=== PATIENT | female | born 1950 | race African-American/Black ===

== ENCOUNTER 2018-06-25 14:03 | Inpatient (IN) | payer OTHER, MEDICARE ==
[2018-06-25] VITALS (7 sets, daily range): BP systolic 85–98
[~2018-06-25] VITALS: Ht 167.6 cm; Wt 100.7 kg
[~2018-06-25 14:03] MED LIST: AMLO5TAB4 PO; ASPI-1153 PO; DIF100 PO; HYDR12.55 PO; LIP10 PO; LOSA100T3 PO; TOPXL100 PO
[2018-06-25] MEDS ORDERED: NACL 0.9% 1,000 ML IV ONE ×2 (14:40→18:30)
[2018-06-25] MEDS ORDERED: ONDANSETRON HCL 4 MG/2 ML VIAL IVP ONE (14:45)
[2018-06-25] MEDS ORDERED: INSULIN REGULAR, HUMAN 10 UNITS/0.1 ML INJ IVP ONE ×2 (15:00→18:00)
[2018-06-25] MEDS ORDERED: NACL 0.9% 2,000 ML IV ONE ×2 (15:00→16:30)
[2018-06-25 15:12] LABS: BASOPHILS % (AUTO) 0.1 % (0.0-2.0); EOSINOPHILS % (AUTO) 0.1 % (0.0-4.0); HEMATOCRIT 34.7 % (36-48); HEMOGLOBIN 10.7 g/dL (12.0-16.0); LYMPHOCYTES # (AUTO) 1.3 K/uL (1.0-5.5); MEAN CORPUSCULAR HEMOGLOBIN 26 pg (27-31); MEAN CORPUSCULAR HGB CONC 31 % (32-36); MEAN CORPUSCULAR VOLUME 84 fL (79.0-98.0); MONOCYTES # (AUTO) 0.8 K/uL (0.0-1.0); MONOCYTES % (AUTO) 4.6 % (1.7-9.3); NEUTROPHILS # (AUTO) 15.8 K/uL (1.8-7.7); NEUTROPHILS % (AUTO) 88.2 % (40.0-70.0); PLATELET COUNT (AUTO) 337 K/uL (130-430); RED BLOOD CELL COUNT(AUTO) 4.11 MIL/uL (4.2-6.2); RED CELL DISTRIBUTION WIDTH 13.8 % (9.0-15.0); WHITE BLOOD COUNT (AUTO) 17.9 K/uL (4.8-10.8)
[2018-06-25 15:25] LABS: PROTHROMBIN TIME 10.1 SECS (9.5-12.5)
[2018-06-25 15:26] LABS: CALCIUM 8.8 mg/dL (8.4-11.0); CREATININE 2.52 mg/dL (0.55-1.30); POTASSIUM 5.3 mmol/L (3.5-5.1)
[2018-06-25 15:29] LABS: ALBUMIN 3.1 g/dL (3.4-4.8); TOTAL BILIRUBIN 0.7 mg/dL (0.0-1.0)
[2018-06-25] MEDS ORDERED: DULO60CA41 PO (16:47)
[2018-06-25] MEDS ORDERED: ALBU8.5H8 INH (16:47)
[2018-06-25] MEDS ORDERED: ASPI-1153 PO (16:47)
[2018-06-25] MEDS ORDERED: OMEP20CA10 PO (16:47)
[2018-06-25] MEDS ORDERED: NAPR-1172 PO (16:47)
[2018-06-25] MEDS ORDERED: INSU100V SQ (16:47)
[2018-06-25] MEDS ORDERED: METF1000 PO (16:47)
[2018-06-25] MEDS ORDERED: PRAM0.253 PO (16:47)
[2018-06-25] MEDS ORDERED: cefTRIAXone 1 GM IVPB PREMIX 50 ML IV ONE (18:00)
[2018-06-25] MEDS ORDERED: INSULIN REGULAR, HUMAN 100 UNITS in NS 99 ML IV PRN ×4 (20:45→22:15)
[2018-06-25] MEDS ORDERED: DEXTROSE 50% JECT 50 ML DISP.SYRIN IVP PRN (20:45)
[2018-06-25] MEDS ORDERED: LevALBUTEROL HCL 1.25 MG/0.5 ML *CONC.* VIAL.NEB (XOPENEX CONC.) INH PRN ×2 (22:15)
[2018-06-25 23:02] LABS: CALCIUM 7.3 mg/dL (8.4-11.0); CREATININE 2.76 mg/dL (0.55-1.30); POTASSIUM 4.4 mmol/L (3.5-5.1)
[2018-06-25] MEDS: NACL 0.9% 1,000 ML IV SCH (23:38)
[2018-06-25] MEDS ORDERED: AZITHROMYCIN 500 MG/VIAL (ZITHROMAX) IV ONE (23:56)
[2018-06-26] VITALS (25 sets, daily range): BP systolic 81–139
[2018-06-26] MEDS ORDERED: NOREPINEPHRINE BITARTRATE 4 MG in NS 246 ML IV PRN ×2
[2018-06-26] MEDS: AZITHROMYCIN 500 MG in NS 250 ML IV SCH ×2 (00:01→22:54)
[2018-06-26] MEDS: LevALBUTEROL HCL 1.25 MG/0.5 ML *CONC.* VIAL.NEB (XOPENEX CONC.) INH SCH ×4 (00:52→19:47)
[2018-06-26 02:52] LABS: CALCIUM 7.6 mg/dL (8.4-11.0); CREATININE 2.78 mg/dL (0.55-1.30); POTASSIUM 4.3 mmol/L (3.5-5.1)
[2018-06-26 04:40] LABS: BILIRUBIN,URINE 2+ (NEGATIVE); BLOOD, URINE NEGATIVE (NEGATIVE); CLARITY/URINE CLEAR (CLEAR); COLOR,URINE YELLOW (YELLOW); GLUCOSE,URINE 3+ (NEGATIVE); KETONES,URINE 1+ (NEGATIVE); LEUKOCYTE ESTERASE ,URINE NEGATIVE (NEGATIVE); NITRITE, URINE NEGATIVE (NEGATIVE); PROTEIN URINE NEGATIVE (NEGATIVE); UROBILINOGEN,URINE 0.2 (0.2-1.0)
[2018-06-26] MEDS: NACL 0.9% 1,000 ML IV SCH (05:14)
[2018-06-26 05:25] LABS: BACTERIA,URINE FEW /HPF (None Seen); RBC,URINE 0-3 /HPF (0-3); WBC,URINE 0-3 /HPF (0-3)
[2018-06-26] MEDS: OMEPRAZOLE 20 MG CAPSULE.DR (PriLOSEC) PO SCH (06:14)
[2018-06-26 06:45] LABS: BASOPHILS % (AUTO) 0.1 % (0.0-2.0); EOSINOPHILS % (AUTO) 0.1 % (0.0-4.0); HEMATOCRIT 29.3 % (36-48); HEMOGLOBIN 9.4 g/dL (12.0-16.0); LYMPHOCYTES # (AUTO) 1.5 K/uL (1.0-5.5); LYMPHOCYTES % (AUTO) 8.4 % (20.5-51.5); MEAN CORPUSCULAR HEMOGLOBIN 27 pg (27-31); MEAN CORPUSCULAR HGB CONC 32 % (32-36); MEAN CORPUSCULAR VOLUME 82 fL (79.0-98.0); MONOCYTES # (AUTO) 1.3 K/uL (0.0-1.0); MONOCYTES % (AUTO) 7.3 % (1.7-9.3); NEUTROPHILS # (AUTO) 15.1 K/uL (1.8-7.7); NEUTROPHILS % (AUTO) 84.1 % (40.0-70.0); PLATELET COUNT (AUTO) 278 K/uL (130-430); RED BLOOD CELL COUNT(AUTO) 3.57 MIL/uL (4.2-6.2); RED CELL DISTRIBUTION WIDTH 13.4 % (9.0-15.0); WHITE BLOOD COUNT (AUTO) 17.9 K/uL (4.8-10.8)
[2018-06-26 07:05] LABS: CALCIUM 7.4 mg/dL (8.4-11.0); CREATININE 2.77 mg/dL (0.55-1.30); PHOSPHORUS 3.5 mg/dL (2.7-4.5); POTASSIUM 3.9 mmol/L (3.5-5.1)
[2018-06-26] MEDS: OSELTAMIVIR PHOSPHATE 75 MG CAPSULE PO SCH ×2 (09:00→21:01)
[2018-06-26] MEDS: DULoxetine HCL 30 MG CAPSULE.DR (CYMBALTA) PO SCH (09:00)
[2018-06-26] MEDS: ASPIRIN 81 MG TABLET(ECOTRIN) PO SCH (09:00)
[2018-06-26] MEDS: ENOXAPARIN SODIUM 30 MG/0.3 ML SYRINGE SUBCUT SCH (09:01)
[2018-06-26] MEDS ORDERED: INSULIN REGULAR, HUMAN 100 UNITS in NS 99 ML IV PRN ×2 (10:00)
[2018-06-26 10:26] LABS: CALCIUM 7.9 mg/dL (8.4-11.0); CREATININE 2.54 mg/dL (0.55-1.30); POTASSIUM 3.9 mmol/L (3.5-5.1)
[2018-06-26] MEDS: KCL 20 mEq in NS 1000 mL 1,000 ML IV SCH ×3 (10:39→22:53)
[2018-06-26] MEDS: ACETAMINOPHEN 325 MG TABLET PO PRN (14:12)
[2018-06-26] MEDS: INSULIN REGULAR, HUMAN 100 UNITS/ML, 10 ML VIAL (novoLIN R) SUBCUT PRN ×2 (17:26→21:15)
[2018-06-26] MEDS: cefTRIAXone 1 GM in D5W 50 ML IV SCH (18:48)
[2018-06-26] MEDS: PRAMIPEXOLE DI-HCL 0.25 MG TABLET PO SCH (21:01)
[2018-06-26] MEDS ORDERED: INSULIN REGULAR, HUMAN 100 UNITS/ML, 10 ML VIAL SUBCUT ONE (22:45)
[2018-06-27] VITALS (17 sets, daily range): BP systolic 101–169
[2018-06-27] MEDS: LevALBUTEROL HCL 1.25 MG/0.5 ML *CONC.* VIAL.NEB (XOPENEX CONC.) INH SCH ×4 (00:59→19:50)
[2018-06-27] MEDS: OMEPRAZOLE 20 MG CAPSULE.DR (PriLOSEC) PO SCH (06:15)
[2018-06-27 07:02] LABS: CALCIUM 8.2 mg/dL (8.4-11.0); CREATININE 1.92 mg/dL (0.55-1.30); POTASSIUM 3.9 mmol/L (3.5-5.1)
[2018-06-27 07:12] LABS: BASOPHILS % (AUTO) 0.3 % (0.0-2.0); EOSINOPHILS % (AUTO) 0.1 % (0.0-4.0); HEMATOCRIT 30.6 % (36-48); HEMOGLOBIN 9.9 g/dL (12.0-16.0); LYMPHOCYTES % (AUTO) 21.3 % (20.5-51.5); MEAN CORPUSCULAR HEMOGLOBIN 26 pg (27-31); MEAN CORPUSCULAR HGB CONC 32 % (32-36); MEAN CORPUSCULAR VOLUME 82 fL (79.0-98.0); MONOCYTES # (AUTO) 0.9 K/uL (0.0-1.0); MONOCYTES % (AUTO) 6.2 % (1.7-9.3); NEUTROPHILS # (AUTO) 10.3 K/uL (1.8-7.7); NEUTROPHILS % (AUTO) 72.1 % (40.0-70.0); PLATELET COUNT (AUTO) 274 K/uL (130-430); RED BLOOD CELL COUNT(AUTO) 3.74 MIL/uL (4.2-6.2); RED CELL DISTRIBUTION WIDTH 14.2 % (9.0-15.0); WHITE BLOOD COUNT (AUTO) 14.2 K/uL (4.8-10.8)
[2018-06-27] MEDS: DULoxetine HCL 30 MG CAPSULE.DR (CYMBALTA) PO SCH (09:28)
[2018-06-27] MEDS: ASPIRIN 81 MG TABLET(ECOTRIN) PO SCH (09:28)
[2018-06-27] MEDS: ENOXAPARIN SODIUM 30 MG/0.3 ML SYRINGE SUBCUT SCH (09:29)
[2018-06-27] MEDS: KCL 20 mEq in NS 1000 mL 1,000 ML IV SCH ×4 (09:29→23:18)
[2018-06-27] MEDS: OSELTAMIVIR PHOSPHATE 75 MG CAPSULE PO SCH ×2 (11:45→20:26)
[2018-06-27] MEDS: INSULIN REGULAR, HUMAN 100 UNITS/ML, 10 ML VIAL (novoLIN R) SUBCUT PRN ×3 (11:52→20:40)
[2018-06-27] MEDS: ACETAMINOPHEN 325 MG TABLET PO PRN (12:10)
[2018-06-27] MEDS: PRAMIPEXOLE DI-HCL 0.25 MG TABLET PO SCH (20:26)
[2018-06-27] MEDS: CARVEDILOL 6.25 MG TABLET (COREG) PO SCH (20:26)
[2018-06-27] MEDS: cefTRIAXone 1 GM in D5W 50 ML IV SCH (20:26)
[2018-06-27] MEDS: AZITHROMYCIN 500 MG in NS 250 ML IV SCH (23:18)
[2018-06-28] VITALS: BP_SYST 129
[2018-06-28] MEDS: LevALBUTEROL HCL 1.25 MG/0.5 ML *CONC.* VIAL.NEB (XOPENEX CONC.) INH SCH ×4 (01:24→20:22)
[2018-06-28] MEDS: ACETAMINOPHEN 325 MG TABLET PO PRN (03:36)
[2018-06-28] MEDS: KCL 20 mEq in NS 1000 mL 1,000 ML IV SCH ×3 (06:06→20:00)
[2018-06-28] MEDS: OMEPRAZOLE 20 MG CAPSULE.DR (PriLOSEC) PO SCH (06:06)
[2018-06-28] MEDS: INSULIN REGULAR, HUMAN 100 UNITS/ML, 10 ML VIAL (novoLIN R) SUBCUT PRN ×4 (06:10→20:10)
[2018-06-28 06:51] LABS: BASOPHILS % (AUTO) 0.4 % (0.0-2.0); EOSINOPHILS % (AUTO) 0.2 % (0.0-4.0); HEMATOCRIT 30.9 % (36-48); LYMPHOCYTES # (AUTO) 1.3 K/uL (1.0-5.5); LYMPHOCYTES % (AUTO) 19.3 % (20.5-51.5); MEAN CORPUSCULAR HEMOGLOBIN 27 pg (27-31); MEAN CORPUSCULAR HGB CONC 32 % (32-36); MEAN CORPUSCULAR VOLUME 82 fL (79.0-98.0); MONOCYTES # (AUTO) 0.7 K/uL (0.0-1.0); MONOCYTES % (AUTO) 9.7 % (1.7-9.3); NEUTROPHILS # (AUTO) 4.9 K/uL (1.8-7.7); NEUTROPHILS % (AUTO) 70.4 % (40.0-70.0); PLATELET COUNT (AUTO) 243 K/uL (130-430); RED BLOOD CELL COUNT(AUTO) 3.76 MIL/uL (4.2-6.2); RED CELL DISTRIBUTION WIDTH 14.1 % (9.0-15.0); WHITE BLOOD COUNT (AUTO) 6.9 K/uL (4.8-10.8)
[2018-06-28 06:56] LABS: CALCIUM 8.5 mg/dL (8.4-11.0); CREATININE 1.09 mg/dL (0.55-1.30); POTASSIUM 4.1 mmol/L (3.5-5.1)
[2018-06-28 09:00] VITALS: BP_SYST 164
[2018-06-28] MEDS: OSELTAMIVIR PHOSPHATE 75 MG CAPSULE PO SCH ×2 (09:03→19:59)
[2018-06-28] MEDS: ASPIRIN 81 MG TABLET(ECOTRIN) PO SCH (09:04)
[2018-06-28] MEDS: CARVEDILOL 6.25 MG TABLET (COREG) PO SCH ×2 (09:04→19:59)
[2018-06-28] MEDS: DULoxetine HCL 30 MG CAPSULE.DR (CYMBALTA) PO SCH (09:04)
[2018-06-28] MEDS: ENOXAPARIN SODIUM 30 MG/0.3 ML SYRINGE SUBCUT SCH (09:06)
[2018-06-28 13:07] VITALS: BP_SYST 161
[2018-06-28 17:18] VITALS: BP_SYST 172
[2018-06-28 18:01] VITALS: BP_SYST 155
[2018-06-28] MEDS: cefTRIAXone 1 GM in D5W 50 ML IV SCH (18:35)
[2018-06-28] MEDS: PRAMIPEXOLE DI-HCL 0.25 MG TABLET PO SCH (19:59)
[2018-06-28 20:00] VITALS: BP_SYST 135
[2018-06-28] MEDS: AZITHROMYCIN 500 MG in NS 250 ML IV SCH (23:05)
[2018-06-29] VITALS: BP_SYST 136
[2018-06-29] MEDS: LevALBUTEROL HCL 1.25 MG/0.5 ML *CONC.* VIAL.NEB (XOPENEX CONC.) INH SCH ×4 (02:12→19:00)
[2018-06-29] MEDS: KCL 20 mEq in NS 1000 mL 1,000 ML IV SCH ×4 (03:16→23:45)
[2018-06-29] MEDS: OMEPRAZOLE 20 MG CAPSULE.DR (PriLOSEC) PO SCH (06:15)
[2018-06-29] MEDS: INSULIN REGULAR, HUMAN 100 UNITS/ML, 10 ML VIAL (novoLIN R) SUBCUT PRN ×3 (06:32→20:40)
[2018-06-29] MEDS: ENOXAPARIN SODIUM 30 MG/0.3 ML SYRINGE SUBCUT SCH (08:13)
[2018-06-29] MEDS: OSELTAMIVIR PHOSPHATE 75 MG CAPSULE PO SCH ×2 (08:18→20:41)
[2018-06-29] MEDS: CARVEDILOL 6.25 MG TABLET (COREG) PO SCH (08:19)
[2018-06-29] MEDS: ASPIRIN 81 MG TABLET(ECOTRIN) PO SCH (08:19)
[2018-06-29] MEDS: DULoxetine HCL 30 MG CAPSULE.DR (CYMBALTA) PO SCH (08:19)
[2018-06-29 12:29] VITALS: BP_SYST 156
[2018-06-29 16:30] VITALS: BP_SYST 174
[2018-06-29] MEDS: cefTRIAXone 1 GM in D5W 50 ML IV SCH (17:53)
[2018-06-29] MEDS: PRAMIPEXOLE DI-HCL 0.25 MG TABLET PO SCH (20:22)
[2018-06-29] MEDS: CARVEDILOL 12.5 MG TABLET (COREG) PO SCH (20:22)
[2018-06-29] MEDS: VALSARTAN 160 MG TABLET (DIOVAN) PO SCH (20:23)
[2018-06-29] MEDS: AZITHROMYCIN 500 MG in NS 250 ML IV SCH (23:38)
[2018-06-30 00:36] VITALS: BP_SYST 146
[2018-06-30] MEDS: LevALBUTEROL HCL 1.25 MG/0.5 ML *CONC.* VIAL.NEB (XOPENEX CONC.) INH SCH ×4 (01:43→19:50)
[2018-06-30] MEDS: KCL 20 mEq in NS 1000 mL 1,000 ML IV SCH ×3 (06:28→23:04)
[2018-06-30] MEDS: OMEPRAZOLE 20 MG CAPSULE.DR (PriLOSEC) PO SCH (06:28)
[2018-06-30] MEDS: INSULIN REGULAR, HUMAN 100 UNITS/ML, 10 ML VIAL (novoLIN R) SUBCUT PRN ×4 (06:44→20:30)
[2018-06-30 08:00] VITALS: BP_SYST 169
[2018-06-30] MEDS: OSELTAMIVIR PHOSPHATE 75 MG CAPSULE PO SCH ×2 (08:14→20:23)
[2018-06-30] MEDS: VALSARTAN 160 MG TABLET (DIOVAN) PO SCH ×2 (08:15→20:23)
[2018-06-30] MEDS: ASPIRIN 81 MG TABLET(ECOTRIN) PO SCH (08:15)
[2018-06-30] MEDS: DULoxetine HCL 30 MG CAPSULE.DR (CYMBALTA) PO SCH (08:16)
[2018-06-30] MEDS: CARVEDILOL 12.5 MG TABLET (COREG) PO SCH ×2 (08:16→20:23)
[2018-06-30] MEDS: ENOXAPARIN SODIUM 30 MG/0.3 ML SYRINGE SUBCUT SCH (08:23)
[2018-06-30 12:02] VITALS: BP_SYST 138
[2018-06-30 16:02] VITALS: BP_SYST 133
[2018-06-30] MEDS: cefTRIAXone 1 GM in D5W 50 ML IV SCH (18:22)
[2018-06-30 20:00] VITALS: BP_SYST 161
[2018-06-30] MEDS: PRAMIPEXOLE DI-HCL 0.25 MG TABLET PO SCH (20:24)
[2018-07-01] MEDS: LevALBUTEROL HCL 1.25 MG/0.5 ML *CONC.* VIAL.NEB (XOPENEX CONC.) INH SCH ×4 (01:40→19:00)
[2018-07-01 01:47] VITALS: BP_SYST 177
[2018-07-01] MEDS: OMEPRAZOLE 20 MG CAPSULE.DR (PriLOSEC) PO SCH (05:59)
[2018-07-01] MEDS: INSULIN REGULAR, HUMAN 100 UNITS/ML, 10 ML VIAL (novoLIN R) SUBCUT PRN ×4 (06:02→20:20)
[2018-07-01 07:26] VITALS: BP_SYST 177
[2018-07-01 08:07] VITALS: BP_SYST 186
[2018-07-01] MEDS: DULoxetine HCL 30 MG CAPSULE.DR (CYMBALTA) PO SCH (08:09)
[2018-07-01] MEDS: CARVEDILOL 12.5 MG TABLET (COREG) PO SCH (08:09)
[2018-07-01] MEDS: OSELTAMIVIR PHOSPHATE 75 MG CAPSULE PO SCH ×2 (08:09→20:10)
[2018-07-01] MEDS: ASPIRIN 81 MG TABLET(ECOTRIN) PO SCH (08:09)
[2018-07-01] MEDS: VALSARTAN 160 MG TABLET (DIOVAN) PO SCH ×2 (08:10→20:11)
[2018-07-01] MEDS: ENOXAPARIN SODIUM 30 MG/0.3 ML SYRINGE SUBCUT SCH (08:10)
[2018-07-01 11:35] VITALS: BP_SYST 165
[2018-07-01] MEDS ORDERED: CARVEDILOL 12.5 MG TABLET (COREG) PO ONE (13:30)
[2018-07-01] MEDS: KCL 20 mEq in NS 1000 mL 1,000 ML IV SCH (13:56)
[2018-07-01 16:50] VITALS: BP_SYST 142
[2018-07-01] MEDS: cefTRIAXone 1 GM in D5W 50 ML IV SCH (18:15)
[2018-07-01 20:00] VITALS: BP_SYST 155
[2018-07-01] MEDS: PRAMIPEXOLE DI-HCL 0.25 MG TABLET PO SCH (20:09)
[2018-07-01] MEDS: CARVEDILOL 25 MG TABLET (COREG) PO SCH (20:10)
[2018-07-02] MEDS: LevALBUTEROL HCL 1.25 MG/0.5 ML *CONC.* VIAL.NEB (XOPENEX CONC.) INH SCH ×4 (01:31→19:56)
[2018-07-02 01:42] VITALS: BP_SYST 152
[2018-07-02] MEDS: KCL 20 mEq in NS 1000 mL 1,000 ML IV SCH ×2 (04:45→16:58)
[2018-07-02] MEDS: OMEPRAZOLE 20 MG CAPSULE.DR (PriLOSEC) PO SCH (06:35)
[2018-07-02] MEDS: INSULIN REGULAR, HUMAN 100 UNITS/ML, 10 ML VIAL (novoLIN R) SUBCUT PRN ×4 (06:38→21:38)
[2018-07-02 08:00] VITALS: BP_SYST 181
[2018-07-02] MEDS: VALSARTAN 160 MG TABLET (DIOVAN) PO SCH ×2 (08:35→20:32)
[2018-07-02] MEDS: DULoxetine HCL 30 MG CAPSULE.DR (CYMBALTA) PO SCH (08:35)
[2018-07-02] MEDS: CARVEDILOL 25 MG TABLET (COREG) PO SCH ×2 (08:36→20:32)
[2018-07-02] MEDS: OSELTAMIVIR PHOSPHATE 75 MG CAPSULE PO SCH ×2 (08:36→20:31)
[2018-07-02] MEDS: ASPIRIN 81 MG TABLET(ECOTRIN) PO SCH (08:36)
[2018-07-02] MEDS: ENOXAPARIN SODIUM 30 MG/0.3 ML SYRINGE SUBCUT SCH (08:38)
[2018-07-02 12:24] VITALS: BP_SYST 139
[2018-07-02] MEDS ORDERED: FLUCONAZOLE 200 MG TABLET (DIFLUCAN) PO ONE (15:00)
[2018-07-02 16:30] VITALS: BP_SYST 149
[2018-07-02] MEDS: cefTRIAXone 1 GM in D5W 50 ML IV SCH (18:25)
[2018-07-02 20:00] VITALS: BP_SYST 134
[2018-07-02] MEDS: PRAMIPEXOLE DI-HCL 0.25 MG TABLET PO SCH (20:32)
[2018-07-03] MEDS: LevALBUTEROL HCL 1.25 MG/0.5 ML *CONC.* VIAL.NEB (XOPENEX CONC.) INH SCH ×4 (01:25→19:47)
[2018-07-03 05:00] VITALS: BP_SYST 160
[2018-07-03 05:37] LABS: BASOPHILS % (AUTO) 0.3 % (0.0-2.0); EOSINOPHILS % (AUTO) 0.2 % (0.0-4.0); HEMATOCRIT 29.9 % (36-48); HEMOGLOBIN 9.5 g/dL (12.0-16.0); LYMPHOCYTES # (AUTO) 0.9 K/uL (1.0-5.5); LYMPHOCYTES % (AUTO) 12.3 % (20.5-51.5); MEAN CORPUSCULAR HEMOGLOBIN 27 pg (27-31); MEAN CORPUSCULAR HGB CONC 32 % (32-36); MEAN CORPUSCULAR VOLUME 83 fL (79.0-98.0); MONOCYTES # (AUTO) 0.5 K/uL (0.0-1.0); MONOCYTES % (AUTO) 6.1 % (1.7-9.3); NEUTROPHILS # (AUTO) 6.1 K/uL (1.8-7.7); NEUTROPHILS % (AUTO) 81.1 % (40.0-70.0); PLATELET COUNT (AUTO) 283 K/uL (130-430); RED CELL DISTRIBUTION WIDTH 14.7 % (9.0-15.0); WHITE BLOOD COUNT (AUTO) 7.5 K/uL (4.8-10.8)
[2018-07-03] MEDS: OMEPRAZOLE 20 MG CAPSULE.DR (PriLOSEC) PO SCH (06:29)
[2018-07-03] MEDS: INSULIN REGULAR, HUMAN 100 UNITS/ML, 10 ML VIAL (novoLIN R) SUBCUT PRN ×3 (06:30→16:55)
[2018-07-03 06:47] LABS: CREATININE 0.98 mg/dL (0.55-1.30); POTASSIUM 4.4 mmol/L (3.5-5.1)
[2018-07-03 07:54] VITALS: BP_SYST 174
[2018-07-03] MEDS: KCL 20 mEq in NS 1000 mL 1,000 ML IV SCH (08:32)
[2018-07-03] MEDS: OSELTAMIVIR PHOSPHATE 75 MG CAPSULE PO SCH (08:33)
[2018-07-03] MEDS: ASPIRIN 81 MG TABLET(ECOTRIN) PO SCH (08:33)
[2018-07-03] MEDS: VALSARTAN 160 MG TABLET (DIOVAN) PO SCH (08:34)
[2018-07-03] MEDS: CARVEDILOL 25 MG TABLET (COREG) PO SCH (08:34)
[2018-07-03] MEDS: DULoxetine HCL 30 MG CAPSULE.DR (CYMBALTA) PO SCH (08:34)
[2018-07-03] MEDS: ENOXAPARIN SODIUM 30 MG/0.3 ML SYRINGE SUBCUT SCH (08:39)
[2018-07-03] MEDS: ACETAMINOPHEN 325 MG TABLET PO PRN (11:19)
[2018-07-03 11:30] VITALS: BP_SYST 180
[2018-07-03] MEDS ORDERED: amLODIPine BESYLATE 5 MG TABLET PO ONE (13:00)
[2018-07-03 16:00] VITALS: BP_SYST 189
[2018-07-03] MEDS ORDERED: cloNIDine HCL 0.1 MG TABLET PO PRN (17:15)
[2018-07-03 20:30] VITALS: BP_SYST 145
[2018-07-04] VITALS (7 sets, daily range): BP systolic 140–162
[2018-07-04] MEDS: LevALBUTEROL HCL 1.25 MG/0.5 ML *CONC.* VIAL.NEB (XOPENEX CONC.) INH SCH ×4 (01:15→19:41)
[2018-07-04] MEDS: CARVEDILOL 25 MG TABLET (COREG) PO SCH ×3 (01:27→20:21)
[2018-07-04] MEDS: PRAMIPEXOLE DI-HCL 0.25 MG TABLET PO SCH ×2 (01:28→20:21)
[2018-07-04] MEDS: OSELTAMIVIR PHOSPHATE 75 MG CAPSULE PO SCH ×2 (01:29→08:48)
[2018-07-04] MEDS: VALSARTAN 160 MG TABLET (DIOVAN) PO SCH ×3 (01:29→20:20)
[2018-07-04] MEDS: MICONAZOLE NITRATE 100 MG/SUPP.VAG EA VG SCH ×2 (01:40→20:22)
[2018-07-04] MEDS: KCL 20 mEq in NS 1000 mL 1,000 ML IV SCH ×2 (01:41→11:35)
[2018-07-04] MEDS: INSULIN REGULAR, HUMAN 100 UNITS/ML, 10 ML VIAL (novoLIN R) SUBCUT PRN ×5 (01:52→20:28)
[2018-07-04] MEDS: OMEPRAZOLE 20 MG CAPSULE.DR (PriLOSEC) PO SCH (06:12)
[2018-07-04 06:58] LABS: BASOPHILS % (AUTO) 0.2 % (0.0-2.0); HEMATOCRIT 30.2 % (36-48); HEMOGLOBIN 9.7 g/dL (12.0-16.0); LYMPHOCYTES # (AUTO) 1.4 K/uL (1.0-5.5); LYMPHOCYTES % (AUTO) 14.7 % (20.5-51.5); MEAN CORPUSCULAR HEMOGLOBIN 27 pg (27-31); MEAN CORPUSCULAR HGB CONC 32 % (32-36); MEAN CORPUSCULAR VOLUME 83 fL (79.0-98.0); MONOCYTES # (AUTO) 0.6 K/uL (0.0-1.0); MONOCYTES % (AUTO) 6.7 % (1.7-9.3); NEUTROPHILS # (AUTO) 7.6 K/uL (1.8-7.7); NEUTROPHILS % (AUTO) 78.4 % (40.0-70.0); PLATELET COUNT (AUTO) 312 K/uL (130-430); RED BLOOD CELL COUNT(AUTO) 3.66 MIL/uL (4.2-6.2); RED CELL DISTRIBUTION WIDTH 14.5 % (9.0-15.0); WHITE BLOOD COUNT (AUTO) 9.6 K/uL (4.8-10.8)
[2018-07-04 07:00] LABS: CALCIUM 9.2 mg/dL (8.4-11.0); CREATININE 1.08 mg/dL (0.55-1.30); POTASSIUM 3.6 mmol/L (3.5-5.1)
[2018-07-04] MEDS: DULoxetine HCL 30 MG CAPSULE.DR (CYMBALTA) PO SCH (08:48)
[2018-07-04] MEDS: ASPIRIN 81 MG TABLET(ECOTRIN) PO SCH (08:48)
[2018-07-04] MEDS: amLODIPine BESYLATE 5 MG TABLET PO SCH (08:49)
[2018-07-04] MEDS: ENOXAPARIN SODIUM 30 MG/0.3 ML SYRINGE SUBCUT SCH (08:54)
[2018-07-04] MEDS: MICAFUNGIN SODIUM 100 MG in NS 100 ML IV SCH (11:35)
[2018-07-05 00:45] VITALS: BP_SYST 144
[2018-07-05] MEDS: LevALBUTEROL HCL 1.25 MG/0.5 ML *CONC.* VIAL.NEB (XOPENEX CONC.) INH SCH ×3 (01:09→13:22)
[2018-07-05] MEDS: KCL 20 mEq in NS 1000 mL 1,000 ML IV SCH ×2 (05:16→13:31)
[2018-07-05] MEDS: OMEPRAZOLE 20 MG CAPSULE.DR (PriLOSEC) PO SCH (06:16)
[2018-07-05] MEDS: INSULIN REGULAR, HUMAN 100 UNITS/ML, 10 ML VIAL (novoLIN R) SUBCUT PRN ×2 (06:17→11:29)
[2018-07-05] MEDS: DULoxetine HCL 30 MG CAPSULE.DR (CYMBALTA) PO SCH (08:12)
[2018-07-05] MEDS: CARVEDILOL 25 MG TABLET (COREG) PO SCH (08:12)
[2018-07-05] MEDS: ASPIRIN 81 MG TABLET(ECOTRIN) PO SCH (08:13)
[2018-07-05] MEDS: VALSARTAN 160 MG TABLET (DIOVAN) PO SCH (08:13)
[2018-07-05] MEDS: amLODIPine BESYLATE 5 MG TABLET PO SCH (08:13)
[2018-07-05] MEDS: ENOXAPARIN SODIUM 30 MG/0.3 ML SYRINGE SUBCUT SCH (08:15)
[2018-07-05 08:23] VITALS: BP_SYST 150
[2018-07-05 11:07] VITALS: BP_SYST 134
[2018-07-05] MEDS: MICAFUNGIN SODIUM 100 MG in NS 100 ML IV SCH (11:26)
[2018-07-05 15:40] VITALS: BP_SYST 146
[2018-07-05 16:48] VITALS: BP_SYST 146
== END 2018-07-05 17:15 | disposition home health service (06) | DRG 871 ==
LOC: SED 14:03 → SIC 18:09 → STU 06-27 16:44 → SMU 07-02 18:55
PROVIDERS: ADMIT Family Medicine; ATTEND Family Medicine
DX: A41.9 Sepsis, unspecified organism (principal); E11.10 Type 2 diabetes mellitus with ketoacidosis without coma; J12.9 Viral pneumonia, unspecified; J09.X1 Influenza due to identified novel influenza A virus with pneumonia; J18.1 Lobar pneumonia, unspecified organism; N17.9 Acute kidney failure, unspecified; E87.1 Hypo-osmolality and hyponatremia; I13.0 Hypertensive heart and chronic kidney disease with heart failure and stage 1 through stage 4 chronic kidney disease, or unspecified chronic kidney disease; J11.1 Influenza due to unidentified influenza virus with other respiratory manifestations; D64.9 Anemia, unspecified; E86.0 Dehydration; E11.22 Type 2 diabetes mellitus with diabetic chronic kidney disease; E66.9 Obesity, unspecified; M19.90 Unspecified osteoarthritis, unspecified site; I48.91 Unspecified atrial fibrillation; I50.9 Heart failure, unspecified; N76.0 Acute vaginitis; M79.7 Fibromyalgia; N18.9 Chronic kidney disease, unspecified; Z91.041 Radiographic dye allergy status; Z88.0 Allergy status to penicillin; Z91.013 Allergy to seafood; Z88.8 Allergy status to other drugs, medicaments and biological substances; Z91.018 Allergy to other foods; Z90.710 Acquired absence of both cervix and uterus; Z68.35 Body mass index [BMI] 35.0-35.9, adult
CPT/HCPCS: 36415; 71045; 80048; 80053; 81000-TC; 82550-TC; 82947-TC; 82962; 83605; 83690-TC; 83735-TC; 83880; 84100-TC; 84484; 85025; 85379; 85610-TC; 85730-TC; 86710; 87040-TC; 87081; 93005; 94640; 94760; 96361; 96365; 96375; 96376; 99285; G0378; G9035; J0456; J0696; J1650; J1815; J2248; J2405; J3480; J7030; J7050; J7060; J7612

== ENCOUNTER 2018-09-28 14:13 | Inpatient (IN) | payer OTHER, MEDICARE ==
[~2018-09-28] VITALS: Ht 170.2 cm; Wt 91.6 kg
[~2018-09-28 14:13] MED LIST changes: +ALBU8.5H8 INH; -DIF100 PO; +DULO60CA41 PO; +INSU100V SQ; -LIP10 PO; -LOSA100T3 PO; +METF1000 PO; +OMEP20CA10 PO; +PRAM0.253 PO
[2018-09-28 14:18] VITALS: BP_SYST 153
[2018-09-28] MEDS ORDERED: INSULIN REGULAR, HUMAN 10 UNITS/0.1 ML INJ IVP ONE (14:30)
[2018-09-28] MEDS ORDERED: NS 1000 ML IV.SOLN IV ONE (14:30)
[2018-09-28 15:03] LABS: BILIRUBIN,URINE NEGATIVE (NEGATIVE); BLOOD, URINE NEGATIVE (NEGATIVE); CLARITY/URINE CLEAR (CLEAR); COLOR,URINE YELLOW (YELLOW); GLUCOSE,URINE 3+ (NEGATIVE); KETONES,URINE 2+ (NEGATIVE); NITRITE, URINE NEGATIVE (NEGATIVE); PROTEIN URINE TRACE (NEGATIVE); UROBILINOGEN,URINE 0.2 (0.2-1.0)
[2018-09-28 15:10] LABS: BASOPHILS % (AUTO) 0.4 % (0.0-2.0); HEMATOCRIT 36.3 % (36-48); HEMOGLOBIN 11.2 g/dL (12.0-16.0); LYMPHOCYTES # (AUTO) 0.6 K/uL (1.0-5.5); LYMPHOCYTES % (AUTO) 4.4 % (20.5-51.5); MEAN CORPUSCULAR HEMOGLOBIN 26 pg (27-31); MEAN CORPUSCULAR HGB CONC 31 % (32-36); MEAN CORPUSCULAR VOLUME 86 fL (79.0-98.0); MONOCYTES # (AUTO) 0.3 K/uL (0.0-1.0); MONOCYTES % (AUTO) 2.5 % (1.7-9.3); NEUTROPHILS % (AUTO) 92.7 % (40.0-70.0); PLATELET COUNT (AUTO) 317 K/uL (130-430); RED BLOOD CELL COUNT(AUTO) 4.24 MIL/uL (4.2-6.2); RED CELL DISTRIBUTION WIDTH 15.7 % (9.0-15.0); WHITE BLOOD COUNT (AUTO) 12.9 K/uL (4.8-10.8)
[2018-09-28 15:11] LABS: LEUKOCYTE ESTERASE ,URINE TRACE (NEGATIVE)
[2018-09-28 15:11] LABS: BASOPHILS # (AUTO) 0.1 K/uL (0.0-0.2)
[2018-09-28 15:13] LABS: BACTERIA,URINE FEW /HPF (None Seen); MUCUS,URINE None Seen /LPF (None Seen); RBC,URINE 0-3 /HPF (0-3)
[2018-09-28 15:14] LABS: PROTHROMBIN TIME 8.9 SECS (9.5-12.5)
[2018-09-28] MEDS ORDERED: cefTRIAXone 1 GM IVPB PREMIX 50 ML IV ONE (15:15)
[2018-09-28 15:17] LABS: INR 0.8 (0.8-1.2)
[2018-09-28 15:24] LABS: ALBUMIN 3.2 g/dL (3.4-4.8); CALCIUM 9.6 mg/dL (8.4-11.0); CREATININE 1.56 mg/dL (0.55-1.30); POTASSIUM 4.6 mmol/L (3.5-5.1); TOTAL BILIRUBIN 0.6 mg/dL (0.0-1.0)
[2018-09-28] MEDS ORDERED: ROSU40TA PO (15:54)
[2018-09-28] MEDS ORDERED: NAPR-1174 PO (15:54)
[2018-09-28] MEDS ORDERED: LOSA1TAB15 PO (15:54)
[2018-09-28 16:52] VITALS: BP_SYST 154
[2018-09-28 16:53] VITALS: BP_SYST 154
[2018-09-28] MEDS ORDERED: LevALBUTEROL HCL 1.25 MG/0.5 ML *CONC.* VIAL.NEB (XOPENEX CONC.) INH PRN (17:00)
[2018-09-28] MEDS ORDERED: ACETAMINOPHEN 325 MG TABLET PO PRN (17:00)
[2018-09-28 17:02] VITALS: BP_SYST 154
[2018-09-28] MEDS: NACL 0.9% 1,000 ML IV SCH (17:35)
[2018-09-28] MEDS: INSULIN REGULAR, HUMAN 100 UNITS/ML, 10 ML VIAL (novoLIN R) SUBCUT PRN ×2 (17:44→21:47)
[2018-09-28 20:00] VITALS: BP_SYST 119
[2018-09-28] MEDS: PRAMIPEXOLE DI-HCL 0.25 MG TABLET PO SCH (21:40)
[2018-09-28] MEDS: CEFEPIME 1 GM in D5W 50 ML IV SCH (21:40)
[2018-09-28] MEDS: ATORVASTATIN 20 MG TABLET PO SCH (21:40)
[2018-09-28] MEDS: INSULIN GLARGINE 100 UNITS/ML 10 ML VIAL SUBCUT SCH (21:46)
[2018-09-28] MEDS: ENOXAPARIN SODIUM 30 MG/0.3 ML SYRINGE SUBCUT SCH (21:47)
[2018-09-29 00:20] VITALS: BP_SYST 117
[2018-09-29] MEDS: OMEPRAZOLE 20 MG CAPSULE.DR (PriLOSEC) PO SCH (06:10)
[2018-09-29] MEDS: NACL 0.9% 1,000 ML IV SCH ×2 (06:10→20:26)
[2018-09-29] MEDS: INSULIN REGULAR, HUMAN 100 UNITS/ML, 10 ML VIAL (novoLIN R) SUBCUT PRN ×3 (06:15→17:04)
[2018-09-29 07:14] LABS: POTASSIUM 3.8 mmol/L (3.5-5.1)
[2018-09-29 07:15] LABS: CREATININE 1.16 mg/dL (0.55-1.30)
[2018-09-29 08:10] VITALS: BP_SYST 152
[2018-09-29 08:15] LABS: RED BLOOD CELL COUNT(AUTO) 3.77 MIL/uL (4.2-6.2); WHITE BLOOD COUNT (AUTO) 7.1 K/uL (4.8-10.8)
[2018-09-29 08:16] LABS: HEMATOCRIT 31.1 % (36-48); HEMOGLOBIN 10.1 g/dL (12.0-16.0); MEAN CORPUSCULAR HEMOGLOBIN 27 pg (27-31); MEAN CORPUSCULAR HGB CONC 32 % (32-36); MEAN CORPUSCULAR VOLUME 83 fL (79.0-98.0); PLATELET COUNT (AUTO) 267 K/uL (130-430); RED CELL DISTRIBUTION WIDTH 15.3 % (9.0-15.0)
[2018-09-29 08:17] LABS: BASOPHILS % (AUTO) 0.3 % (0.0-2.0); LYMPHOCYTES # (AUTO) 1.8 K/uL (1.0-5.5); LYMPHOCYTES % (AUTO) 24.6 % (20.5-51.5); MONOCYTES # (AUTO) 0.6 K/uL (0.0-1.0); MONOCYTES % (AUTO) 7.7 % (1.7-9.3); NEUTROPHILS # (AUTO) 4.8 K/uL (1.8-7.7); NEUTROPHILS % (AUTO) 67.4 % (40.0-70.0)
[2018-09-29] MEDS: DULoxetine HCL 30 MG CAPSULE.DR (CYMBALTA) PO SCH (08:44)
[2018-09-29] MEDS: CEFEPIME 1 GM in D5W 50 ML IV SCH ×2 (08:46→20:14)
[2018-09-29] MEDS: OSELTAMIVIR PHOSPHATE 75 MG CAPSULE PO SCH ×2 (08:47→20:15)
[2018-09-29] MEDS: ASPIRIN 81 MG TABLET(ECOTRIN) PO SCH (08:47)
[2018-09-29] MEDS: metFORMIN HCL 500 MG TABLET PO SCH ×2 (08:47→17:01)
[2018-09-29] MEDS: METOPROLOL SUCCINATE 50 MG TAB.SR.24H (TOPROL XL) PO SCH (08:48)
[2018-09-29] MEDS: amLODIPine BESYLATE 5 MG TABLET PO SCH (08:48)
[2018-09-29] MEDS: LOSARTAN POTASSIUM 50 MG TABLET (COZAAR) PO SCH (08:49)
[2018-09-29] MEDS: HYDROCHLOROTHIAZIDE 25 MG TABLET (HCTZ) PO SCH (08:49)
[2018-09-29] MEDS ORDERED: LOSARTAN PO SCH (09:00)
[2018-09-29] MEDS ORDERED: HYDROCHLOROTHIAZIDE PO SCH (09:00)
[2018-09-29 12:30] VITALS: BP_SYST 144
[2018-09-29 15:13] VITALS: BP_SYST 147
[2018-09-29 20:00] VITALS: BP_SYST 138
[2018-09-29] MEDS: PRAMIPEXOLE DI-HCL 0.25 MG TABLET PO SCH (20:15)
[2018-09-29] MEDS: ATORVASTATIN 20 MG TABLET PO SCH (20:15)
[2018-09-29] MEDS: ENOXAPARIN SODIUM 30 MG/0.3 ML SYRINGE SUBCUT SCH (20:19)
[2018-09-29] MEDS: INSULIN GLARGINE 100 UNITS/ML 10 ML VIAL SUBCUT SCH (20:19)
[2018-09-30 00:39] VITALS: BP_SYST 141
[2018-09-30] MEDS: OMEPRAZOLE 20 MG CAPSULE.DR (PriLOSEC) PO SCH (05:59)
[2018-09-30 06:51] LABS: CALCIUM 9.4 mg/dL (8.4-11.0); CREATININE 0.83 mg/dL (0.55-1.30); POTASSIUM 3.8 mmol/L (3.5-5.1)
[2018-09-30] MEDS: DULoxetine HCL 30 MG CAPSULE.DR (CYMBALTA) PO SCH (08:08)
[2018-09-30] MEDS: LOSARTAN POTASSIUM 50 MG TABLET (COZAAR) PO SCH (08:09)
[2018-09-30] MEDS: CEFEPIME 1 GM in D5W 50 ML IV SCH ×2 (08:09→20:23)
[2018-09-30] MEDS: metFORMIN HCL 500 MG TABLET PO SCH ×2 (08:10→17:09)
[2018-09-30] MEDS: OSELTAMIVIR PHOSPHATE 75 MG CAPSULE PO SCH ×2 (08:10→20:36)
[2018-09-30] MEDS: ASPIRIN 81 MG TABLET(ECOTRIN) PO SCH (08:10)
[2018-09-30] MEDS: METOPROLOL SUCCINATE 50 MG TAB.SR.24H (TOPROL XL) PO SCH (08:10)
[2018-09-30] MEDS: HYDROCHLOROTHIAZIDE 25 MG TABLET (HCTZ) PO SCH (08:10)
[2018-09-30] MEDS: amLODIPine BESYLATE 5 MG TABLET PO SCH (08:11)
[2018-09-30] MEDS: NACL 0.9% 1,000 ML IV SCH ×2 (08:11→13:07)
[2018-09-30 08:15] VITALS: BP_SYST 153
[2018-09-30 09:10] LABS: HEMATOCRIT 34.4 % (36-48); MEAN CORPUSCULAR HEMOGLOBIN 26 pg (27-31); MEAN CORPUSCULAR HGB CONC 32 % (32-36); MEAN CORPUSCULAR VOLUME 82 fL (79.0-98.0); RED BLOOD CELL COUNT(AUTO) 4.19 MIL/uL (4.2-6.2)
[2018-09-30 09:11] LABS: BASOPHILS % (AUTO) 0.5 % (0.0-2.0); EOSINOPHILS % (AUTO) 0.1 % (0.0-4.0); LYMPHOCYTES # (AUTO) 2.1 K/uL (1.0-5.5); LYMPHOCYTES % (AUTO) 35.3 % (20.5-51.5); MONOCYTES % (AUTO) 6.2 % (1.7-9.3); NEUTROPHILS # (AUTO) 3.5 K/uL (1.8-7.7); NEUTROPHILS % (AUTO) 57.9 % (40.0-70.0); PLATELET COUNT (AUTO) 233 K/uL (130-430); RED CELL DISTRIBUTION WIDTH 15.6 % (9.0-15.0)
[2018-09-30 09:12] LABS: MONOCYTES # (AUTO) 0.4 K/uL (0.0-1.0)
[2018-09-30] MEDS ORDERED: GENTAMICIN 120 mg/100 mL NS 100 ML IV ONE (11:30)
[2018-09-30] MEDS ORDERED: ONDANSETRON HCL 4 MG/2 ML VIAL IVP PRN (11:30)
[2018-09-30] MEDS: INSULIN REGULAR, HUMAN 100 UNITS/ML, 10 ML VIAL (novoLIN R) SUBCUT PRN ×2 (11:37→17:10)
[2018-09-30 12:47] VITALS: BP_SYST 157
[2018-09-30] MEDS ORDERED: MILK OF MAGNESIA 30 ML UDC PO PRN (14:30)
[2018-09-30 16:47] VITALS: BP_SYST 150
[2018-09-30 20:00] VITALS: BP_SYST 138
[2018-09-30] MEDS: DOCUSATE SODIUM 100 MG CAPSULE PO SCH (20:23)
[2018-09-30] MEDS: PRAMIPEXOLE DI-HCL 0.25 MG TABLET PO SCH (20:36)
[2018-09-30] MEDS: ATORVASTATIN 20 MG TABLET PO SCH (20:36)
[2018-09-30] MEDS: ENOXAPARIN SODIUM 30 MG/0.3 ML SYRINGE SUBCUT SCH (20:42)
[2018-09-30] MEDS: INSULIN GLARGINE 100 UNITS/ML 10 ML VIAL SUBCUT SCH (20:46)
[2018-10-01 01:42] VITALS: BP_SYST 149
[2018-10-01] MEDS: NACL 0.9% 1,000 ML IV SCH (04:35)
[2018-10-01] MEDS: OMEPRAZOLE 20 MG CAPSULE.DR (PriLOSEC) PO SCH (06:03)
[2018-10-01] MEDS: INSULIN REGULAR, HUMAN 100 UNITS/ML, 10 ML VIAL (novoLIN R) SUBCUT PRN (06:12)
[2018-10-01 08:00] VITALS: BP_SYST 128
[2018-10-01] MEDS: DOCUSATE SODIUM 100 MG CAPSULE PO SCH (09:00)
[2018-10-01] MEDS: amLODIPine BESYLATE 5 MG TABLET PO SCH (09:12)
[2018-10-01] MEDS: ASPIRIN 81 MG TABLET(ECOTRIN) PO SCH (09:12)
[2018-10-01] MEDS: DULoxetine HCL 30 MG CAPSULE.DR (CYMBALTA) PO SCH (09:12)
[2018-10-01] MEDS: LOSARTAN POTASSIUM 50 MG TABLET (COZAAR) PO SCH (09:13)
[2018-10-01] MEDS: METOPROLOL SUCCINATE 50 MG TAB.SR.24H (TOPROL XL) PO SCH (09:13)
[2018-10-01] MEDS: HYDROCHLOROTHIAZIDE 25 MG TABLET (HCTZ) PO SCH (09:14)
[2018-10-01] MEDS: OSELTAMIVIR PHOSPHATE 75 MG CAPSULE PO SCH (09:14)
[2018-10-01] MEDS: CEFEPIME 1 GM in D5W 50 ML IV SCH (09:14)
[2018-10-01] MEDS: metFORMIN HCL 500 MG TABLET PO SCH (09:14)
[2018-10-01 11:22] LABS: BASOPHILS % (AUTO) 0.4 % (0.0-2.0); HEMATOCRIT 34.2 % (36-48); HEMOGLOBIN 10.9 g/dL (12.0-16.0); LYMPHOCYTES % (AUTO) 26.2 % (20.5-51.5); MEAN CORPUSCULAR HEMOGLOBIN 27 pg (27-31); MEAN CORPUSCULAR HGB CONC 32 % (32-36); MEAN CORPUSCULAR VOLUME 83 fL (79.0-98.0); MONOCYTES % (AUTO) 8.6 % (1.7-9.3); NEUTROPHILS # (AUTO) 3.7 K/uL (1.8-7.7); NEUTROPHILS % (AUTO) 64.8 % (40.0-70.0); PLATELET COUNT (AUTO) 269 K/uL (130-430); RED CELL DISTRIBUTION WIDTH 14.9 % (9.0-15.0); WHITE BLOOD COUNT (AUTO) 5.8 K/uL (4.8-10.8)
[2018-10-01 11:36] LABS: LYMPHOCYTES # (AUTO) 1.5 K/uL (1.0-5.5); MONOCYTES # (AUTO) 0.5 K/uL (0.0-1.0)
[2018-10-01 12:44] VITALS: BP_SYST 130
[2018-10-01 15:58] VITALS: BP_SYST 130
[2018-10-01 16:41] VITALS: BP_SYST 152
[2018-10-01] MEDS ORDERED: NAPROXEN 250 MG TABLET PO SCH (18:00)
== END 2018-10-01 16:25 | disposition home or self-care (01) | DRG 871 ==
LOC: SED 14:13 → SMU 16:01 → STU 16:05 → SMU 16:31 → STU 16:59 → SMU 09-30 14:30
PROVIDERS: ADMIT Family Medicine; ATTEND Family Medicine
DX: A41.9 Sepsis, unspecified organism (principal); E11.00 Type 2 diabetes mellitus with hyperosmolarity without nonketotic hyperglycemic-hyperosmolar coma (NKHHC); E11.10 Type 2 diabetes mellitus with ketoacidosis without coma; E87.1 Hypo-osmolality and hyponatremia; N39.0 Urinary tract infection, site not specified; N17.9 Acute kidney failure, unspecified; E11.43 Type 2 diabetes mellitus with diabetic autonomic (poly)neuropathy; E86.0 Dehydration; E11.65 Type 2 diabetes mellitus with hyperglycemia; E66.9 Obesity, unspecified; I10 Essential (primary) hypertension; I48.91 Unspecified atrial fibrillation; D64.9 Anemia, unspecified; M19.90 Unspecified osteoarthritis, unspecified site; K31.84 Gastroparesis; J10.1 Influenza due to other identified influenza virus with other respiratory manifestations; J45.909 Unspecified asthma, uncomplicated; M32.9 Systemic lupus erythematosus, unspecified; Z79.4 Long term (current) use of insulin; Z90.710 Acquired absence of both cervix and uterus; Z79.82 Long term (current) use of aspirin; Z79.899 Other long term (current) drug therapy; Z91.040 Latex allergy status; Z88.8 Allergy status to other drugs, medicaments and biological substances; Z91.041 Radiographic dye allergy status; Z91.013 Allergy to seafood
CPT/HCPCS: 36415; 71045; 80048; 80053; 81000-TC; 82962; 83605; 83735-TC; 83880; 84484; 85025; 85610-TC; 85730-TC; 86710; 87040-TC; 87086; 93005; 96361; 96365; 96375; 99285; 99291; G0378; G9035; J0692; J0696; J1580; J1650; J1815; J2405; J7030; J7060

== ENCOUNTER 2019-03-13 22:17 | Emergency (ER) | payer OTHER ==
[~2019-03-13] VITALS: Ht 165.1 cm; Wt 79.8 kg
[~2019-03-13 22:17] MED LIST changes: -HYDR12.55 PO; +LOSA1TAB15 PO; +NAPR-1174 PO; +ROSU40TA PO
[2019-03-13 22:23] VITALS: BP_SYST 140
--- NOTE | 2019-03-13 22:23 | NUR ---
Placed in room 7 . Placed on monitoring specialist, blood pressure machine and pulse oximeter. To gown for exam. Side rails up. Report given to Caprice VALENTIN.
--- NOTE | 2019-03-13 22:30 | NUR ---
ER at bedside examining patient.
--- NOTE | 2019-03-13 22:45 | NUR ---
PT came to the ED for a near syncope x15 mins. Pt complaining of dizziness and nausea. Reports that pt fell and blacked out. Reported she hit her L shoulder and scraped her skin superficially. Denies fever, SOB or chest pain. No other complaints/injuries noted. Will cont. to monitor.
[2019-03-13] MEDS ORDERED: NACL 0.9% 1,000 ML IV ONE (22:47)
[2019-03-13] MEDS ORDERED: ONDANSETRON HCL 4 MG/2 ML VIAL IVP ONE (23:00)
[2019-03-13] MEDS ORDERED: BACITRACIN 1 GM OINT TP ONE (23:00)
--- NOTE | 2019-03-13 23:30 | NUR ---
Pt resting comfortably in bed, no signs of acute distress. Will cont. to monitor.
[2019-03-13] MEDS ORDERED: AMLO5TAB92 PO (23:31)
[2019-03-13 23:32] LABS: HEMATOCRIT 34.8 % (36-48); HEMOGLOBIN 11.4 g/dL (12.0-16.0); MEAN CORPUSCULAR HEMOGLOBIN 26 pg (27-31); MEAN CORPUSCULAR HGB CONC 33 % (32-36); MEAN CORPUSCULAR VOLUME 80 fL (79.0-98.0); PLATELET COUNT (AUTO) 334 K/uL (130-430); RED BLOOD CELL COUNT(AUTO) 4.33 MIL/uL (4.2-6.2); RED CELL DISTRIBUTION WIDTH 15.8 % (9.0-15.0); WHITE BLOOD COUNT (AUTO) 8.9 K/uL (4.8-10.8)
[2019-03-13 23:54] LABS: ATYPICAL LYMPHOCYTES % 0 % (0-0); BAND % (MANUAL) 4 % (0-6); BASOPHILS % (MANUAL) 0 % (0-2); EOSINOPHILS % (MANUAL) 0 % (0-7); LYMPHOCYTES % (MANUAL) 17 % (20-46); METAMYELOCYTES % 0 % (0-0); MONOCYTES % (MANUAL) 5 % (0-11); MYELOCYTES % 0 % (0-0)
--- NOTE | 2019-03-14 00:30 | NUR ---
# 16 FR In and Out catheter with use of sterile technique. Immediate return of 150 ml yellow urine noted. Urine sample collected and sent to lab. Pt tolerated procedure well. Patient unable to toilet self.
[2019-03-14 00:35] LABS: CALCIUM 9.5 mg/dL (8.4-11.0); CREATININE 1.79 mg/dL (0.55-1.30); POTASSIUM 4.3 mmol/L (3.5-5.1)
[2019-03-14 00:40] LABS: INR 0.9 (0.8-1.2); PROTHROMBIN TIME 9.4 SECS (9.5-12.5)
[2019-03-14 00:43] LABS: TOTAL BILIRUBIN 0.3 mg/dL (0.0-1.0)
--- NOTE | 2019-03-14 01:30 | NUR ---
Pt resting comfortably in bed, no signs of acute distress. Will cont. to monitor .
[2019-03-14 02:29] VITALS: BP_SYST 140
--- NOTE | 2019-03-14 02:29 | NUR ---
Patient given written and verbal discharge instructions and verbalizes understanding. ER MD Dr. Peraza discussed with patient the results and treatment provided. Patient in stable condition. ID arm band removed. IV catheter removed intact and dressing applied, no active bleeding. Patient educated on pain management and to follow up with PMD. Pain Scale 0/10. Opportunity for questions provided and answered. Medication side effect fact sheet provided.
== END 2019-03-14 02:29 | disposition home or self-care (01) ==
LOC: SED 22:17
DX: S40.212A Abrasion of left shoulder, initial encounter (principal); R55 Syncope and collapse; I10 Essential (primary) hypertension; I48.91 Unspecified atrial fibrillation; E11.9 Type 2 diabetes mellitus without complications; M19.90 Unspecified osteoarthritis, unspecified site; J45.909 Unspecified asthma, uncomplicated; Z79.82 Long term (current) use of aspirin; Z79.899 Other long term (current) drug therapy; Z88.0 Allergy status to penicillin; Z88.1 Allergy status to other antibiotic agents; Z91.041 Radiographic dye allergy status; Z91.040 Latex allergy status; Z91.013 Allergy to seafood; Z88.8 Allergy status to other drugs, medicaments and biological substances; X58.XXXA Exposure to other specified factors, initial encounter; Y93.89 Activity, other specified; Y92.89 Other specified places as the place of occurrence of the external cause; Y99.8 Other external cause status
CPT/HCPCS: 36415; 71045; 80053; 82962; 83880; 84484; 85007; 85027; 85610; 85730; 93005 ×2; 96361 ×2; 96374; 96375; 99284; J2405; J7030; 99285

== ENCOUNTER 2021-01-14 14:03 | Emergency (ER) | payer OTHER ==
[~2021-01-14] VITALS: Ht 165.1 cm; Wt 91.6 kg
[~2021-01-14 14:03] MED LIST changes: +AMLO5TAB92 PO; -ASPI-1153 PO; +ASPI-1393 PO; -METF1000 PO; -NAPR-1174 PO; -OMEP20CA10 PO; +OMEP20CA15 PO
[2021-01-14 14:14] VITALS: BP_SYST 141
[2021-01-14] MEDS ORDERED: NACL 0.9% 1,000 ML IV ONE (14:45)
[2021-01-14] MEDS ORDERED: METOPROLOL TARTRATE 25 MG TABLET PO ONE (15:00)
[2021-01-14 15:02] LABS: BASOPHILS % (AUTO) 0.5 % (0.0-2.0); HEMATOCRIT 32.6 % (36-48); HEMOGLOBIN 10.1 g/dL (12.0-16.0); MEAN CORPUSCULAR HEMOGLOBIN 25 pg (27-31); MEAN CORPUSCULAR HGB CONC 31 % (32-36); MEAN CORPUSCULAR VOLUME 81 fL (79.0-98.0); MONOCYTES # (AUTO) 0.4 K/uL (0.0-1.0); MONOCYTES % (AUTO) 4.3 % (1.7-9.3); NEUTROPHILS # (AUTO) 7.4 K/uL (1.8-7.7); NEUTROPHILS % (AUTO) 84.2 % (40.0-70.0); PLATELET COUNT (AUTO) 286 K/uL (130-430); RED BLOOD CELL COUNT(AUTO) 4.04 MIL/uL (4.2-6.2); RED CELL DISTRIBUTION WIDTH 16.4 % (9.0-15.0); WHITE BLOOD COUNT (AUTO) 8.7 K/uL (4.8-10.8)
[2021-01-14] MEDS ORDERED: METOPROLOL TARTRATE 25 MG TABLET ONE (15:12)
[2021-01-14 15:27] LABS: BILIRUBIN,URINE NEGATIVE (NEGATIVE); BLOOD, URINE NEGATIVE (NEGATIVE); CLARITY/URINE CLEAR (CLEAR); COLOR,URINE YELLOW (YELLOW); GLUCOSE,URINE 3+ (NEGATIVE); KETONES,URINE 1+ (NEGATIVE); LEUKOCYTE ESTERASE ,URINE NEGATIVE (NEGATIVE); NITRITE, URINE NEGATIVE (NEGATIVE); PROTEIN URINE 2+ (NEGATIVE); UROBILINOGEN,URINE 0.2 (0.2-1.0)
[2021-01-14 15:32] LABS: ANION GAP 13 (5-15); CALCIUM 9.4 mg/dL (8.4-11.0); CHLORIDE 102 mmol/L (98-107); CREATININE 1.89 mg/dL (0.55-1.30); PHOSPHORUS 3.7 mg/dL (2.7-4.5); POTASSIUM 4.4 mmol/L (3.5-5.1); SODIUM SERUM 138 mmol/L (136-145); UREA NITROGEN, BLOOD 19 mg/dL (8-21)
[2021-01-14 15:34] LABS: GFR AFRICAN AMERICAN 34 mL/min (>90); GLUCOSE 497 mg/dL (70-99)
[2021-01-14 16:20] LABS: RBC,URINE 0-3 /HPF (0-3)
[2021-01-14 16:21] LABS: BACTERIA,URINE FEW /HPF (None Seen); MUCUS,URINE None Seen /LPF (None Seen); WBC,URINE 0-3 /HPF (0-3)
[2021-01-14 18:00] VITALS: BP_SYST 145
== END 2021-01-14 18:00 | disposition home or self-care (01) ==
LOC: SED 14:03
DX: I49.9 Cardiac arrhythmia, unspecified (principal); R42 Dizziness and giddiness; I10 Essential (primary) hypertension; E11.9 Type 2 diabetes mellitus without complications; I48.91 Unspecified atrial fibrillation; J45.909 Unspecified asthma, uncomplicated; Z88.0 Allergy status to penicillin; Z88.1 Allergy status to other antibiotic agents; Z88.8 Allergy status to other drugs, medicaments and biological substances; Z91.040 Latex allergy status; Z91.013 Allergy to seafood; Z79.899 Other long term (current) drug therapy
CPT/HCPCS: 36415; 71045; 80048; 81000; 82962; 83735; 83880; 84100; 84484; 85025; 93005; 96360; 96361; 99285; J7030

== ENCOUNTER 2021-11-23 15:53 | Inpatient (IN) | payer OTHER ==
[~2021-11-23] VITALS: Ht 165.1 cm; Wt 91.6 kg
[2021-11-23 15:53] VITALS: BP_SYST 145
[~2021-11-23 15:53] MED LIST changes: -DULO60CA41 PO; +DULO60CA42 PO
--- NOTE | 2021-11-23 16:00 | NUR ---
Pt VANESSAIris ACLS coming from home c/o having high sugar check accompanied with a headache 5/10 non-radiating. pt states she checked her sugar at home 2 times and it kept reading "High" so she called 911. Medics on scene did accucheck and results were also "High". Upon arrival to Ed her accuchec was done and results were "High", Dr. Leach made aware. Pt is A&Ox4. Skin intact. Allergic to Penicillins, shellfish, amoxicillin, and Fluconazole. Has hx of DM, HTN, Hyperlipidemia, Asthma, and Lupus. Bed in lowest position.
--- NOTE | 2021-11-23 16:05 | NUR ---
ER at bedside examining patient.
--- NOTE | 2021-11-23 16:08 | NUR ---
# 22 gauge angiocath placed to right forearm. Use of asceptic technique. Opsite placed over site. Blood return noted. Blood for lab drawn from site. Flushed with 10 cc of normal saline. No evidence of infiltration noted. Patient tolerated well.
[2021-11-23 16:14] LABS: BASOPHILS % (AUTO) 0.2 % (0.0-2.0); HEMATOCRIT 33.2 % (36-48); HEMOGLOBIN 10.3 g/dL (12.0-16.0); LYMPHOCYTES # (AUTO) 0.5 K/uL (1.0-5.5); LYMPHOCYTES % (AUTO) 4.7 % (20.5-51.5); MEAN CORPUSCULAR HEMOGLOBIN 25 pg (27-31); MEAN CORPUSCULAR HGB CONC 31 % (32-36); MEAN CORPUSCULAR VOLUME 80 fL (79.0-98.0); MONOCYTES # (AUTO) 0.2 K/uL (0.0-1.0); NEUTROPHILS # (AUTO) 10.2 K/uL (1.8-7.7); NEUTROPHILS % (AUTO) 93.1 % (40.0-70.0); PLATELET COUNT (AUTO) 298 K/uL (130-430); RED BLOOD CELL COUNT(AUTO) 4.15 MIL/uL (4.2-6.2); RED CELL DISTRIBUTION WIDTH 17.2 % (9.0-15.0)
[2021-11-23] MEDS ORDERED: LR 1,000 ML IV ONE ×2 (16:15→17:45)
--- NOTE | 2021-11-23 16:20 | NUR ---
EKG performed at BS. Physician given copy of EKG for review.
--- NOTE | 2021-11-23 16:21 | NUR ---
Chest X-Ray being done at bedside.
--- NOTE | 2021-11-23 16:24 | NUR ---
LR 1000ml running at 100ml/hr. Pt has no c/o.
[2021-11-23 16:26] LABS: ANION GAP 21 (5-15); CALCIUM 8.7 mg/dL (8.4-11.0); CHLORIDE 89 mmol/L (98-107); CREATININE 2.35 mg/dL (0.55-1.30); POTASSIUM 4.8 mmol/L (3.5-5.1); SODIUM SERUM 125 mmol/L (136-145); UREA NITROGEN, BLOOD 34 mg/dL (8-21)
[2021-11-23 16:32] LABS: ALANINE AMINOTRANSFERASE 15 U/L (12-78); ALBUMIN 3.1 g/dL (3.4-4.8); ASPARTATE AMINOTRANSFERASE 13 U/L (10-37); TOTAL BILIRUBIN 0.4 mg/dL (0.0-1.0)
--- NOTE | 2021-11-23 16:39 | NUR ---
Urine collected and sent to lab.
[2021-11-23 16:44] LABS: GFR AFRICAN AMERICAN 26 mL/min (>90)
[2021-11-23 16:45] LABS: GLUCOSE 946 mg/dL (70-99)
[2021-11-23 16:52] LABS: BILIRUBIN,URINE NEGATIVE (NEGATIVE); CLARITY/URINE CLEAR (CLEAR); COLOR,URINE YELLOW (YELLOW); GLUCOSE,URINE 3+ (NEGATIVE); KETONES,URINE 2+ (NEGATIVE); LEUKOCYTE ESTERASE ,URINE NEGATIVE (NEGATIVE); NITRITE, URINE NEGATIVE (NEGATIVE); PH,URINE 5.5 (5.0-8.0); PROTEIN URINE 1+ (NEGATIVE); UROBILINOGEN,URINE 0.2 (0.2-1.0)
[2021-11-23 16:55] LABS: BLOOD, URINE TRACE (NEGATIVE)
[2021-11-23 16:56] LABS: BACTERIA,URINE FEW /HPF (None Seen); MUCUS,URINE None Seen /LPF (None Seen); RBC,URINE NONE SEEN /HPF (0-3); WBC,URINE 0-3 /HPF (0-3)
--- NOTE | 2021-11-23 17:15 | NUR ---
Covid swab done and sent to lab.
[2021-11-23] MEDS ORDERED: INSULIN REGULAR, HUMAN 100 UNITS in NS 99 ML IV ONE ×2 (17:30)
--- NOTE | 2021-11-23 17:40 | NUR ---
Admit bed requested Patient will be admitted to care of . Admitted to ICU unit. Diagnosis DKA Inpatient Yes Observation No Orientation concerns or request close to nursing station No Covid Status Negative On vent or bipap No Isolation requirements No Needs a sitter No From Home Yes Requires Dialysis No Med Rec Completed Yes
--- NOTE | 2021-11-23 17:43 | NUR ---
Cargo Mate at bedside.
[2021-11-23] MEDS ORDERED: DEXTROSE 50% JECT 50 ML DISP.SYRIN IVP PRN (17:45)
[2021-11-23] MEDS ORDERED: INSULIN REGULAR, HUMAN 100 UNITS in NS 99 ML IV PRN ×6 (17:45→23:30)
--- NOTE | 2021-11-23 17:57 | NUR ---
Medication reconciliation completed with information provided by patient. Any prior medication reconciliation on file was reviewed and corrected.
[2021-11-23 18:19] LABS: ACETONE, SERUM MODERATE (NEGATIVE)
[2021-11-23 18:20] LABS: ANION GAP 17 (5-15); CALCIUM 8.7 mg/dL (8.4-11.0); CHLORIDE 93 mmol/L (98-107); CREATININE 2.48 mg/dL (0.55-1.30); POTASSIUM 4.2 mmol/L (3.5-5.1); SODIUM SERUM 127 mmol/L (136-145); UREA NITROGEN, BLOOD 34 mg/dL (8-21)
[2021-11-23 18:22] LABS: ALANINE AMINOTRANSFERASE 10 U/L (12-78); ALBUMIN 2.9 g/dL (3.4-4.8); ASPARTATE AMINOTRANSFERASE 13 U/L (10-37); PHOSPHORUS 3.9 mg/dL (2.7-4.5); TOTAL BILIRUBIN 0.2 mg/dL (0.0-1.0)
[2021-11-23 18:25] LABS: GLUCOSE 657 mg/dL (70-99)
[2021-11-23 18:30] LABS: GFR AFRICAN AMERICAN 25 mL/min (>90)
--- NOTE | 2021-11-23 19:26 | NUR ---
rec report from MEGHAN Mcdaniels
--- NOTE | 2021-11-23 19:53 | NUR ---
assessed pt at bedside, pt is resting comfortably in bed with bed lowered and locked and rails up. pt denies any pain or discomfort, pt is aox4 and stable. will continue to monitor
--- NOTE | 2021-11-23 20:50 | NUR ---
Pt arrived on the unit admitted to ICU room 6 awake alert oriented,ambulatory steady gait, no complain and bedside report received from Jarocho VALENTIN for continuity of care.
[2021-11-23 21:00] VITALS: BP_SYST 155
--- NOTE | 2021-11-23 21:02 | NUR ---
Patient will be admitted to care of Dr Montero. Admitted to unit. Will go to room . Belongings list completed. Complete and up to date summary report printed. SBAR report to be given TO Melva VALENTIN at bedside with opportunity for questions.
--- NOTE | 2021-11-23 21:38 | NUR ---
Dr Montero arrived on the unit, updates on the pt's condition at the bedside meds reconciliation done by MD, ongoing Insulin drip and accucheck q1 hr as at this time pt awake alert oriented x4, responded to MD also he is the pt's primary doctor out patient. pt's insulin pump malfunction discussed and care plan
[2021-11-23 22:00] VITALS: BP_SYST 138
[2021-11-23] MEDS ORDERED: LevALBUTEROL HCL 1.25 MG/0.5 ML *CONC.* VIAL.NEB (XOPENEX CONC.) INH PRN (22:00)
[2021-11-23] MEDS ORDERED: ACETAMINOPHEN 325 MG TABLET PO PRN (22:00)
[2021-11-23] MEDS: NACL 0.9% 1,000 ML IV SCH (22:00)
[2021-11-23 22:14] VITALS: BP_SYST 129
[2021-11-23 23:00] VITALS: BP_SYST 136
[2021-11-23 23:09] LABS: CALCIUM 9.1 mg/dL (8.4-11.0); CREATININE 1.93 mg/dL (0.55-1.30)
[2021-11-24] VITALS (24 sets, daily range): BP systolic 113–179
[2021-11-24] MEDS: LevALBUTEROL HCL 1.25 MG/0.5 ML *CONC.* VIAL.NEB (XOPENEX CONC.) INH SCH ×4 (02:07→23:10)
[2021-11-24] MEDS: NACL 0.9% 1,000 ML IV SCH ×3 (03:55→23:25)
[2021-11-24 06:05] LABS: CALCIUM 8.9 mg/dL (8.4-11.0); CREATININE 1.71 mg/dL (0.55-1.30); POTASSIUM 3.7 mmol/L (3.5-5.1)
--- NOTE | 2021-11-24 07:20 | NUR ---
Change of shift report given to Josh VALENTIN at bedside updates on pt's condition, went over the last blood sugar @0700 was 172 Insulin drip still continues at 0.5 units/h./ As at this time no chnages in care plan and pt's condition
--- NOTE | 2021-11-24 07:30 | NUR ---
PATIENT ADMITTED TO ICU LAST NIGHT FOR DKA, PER REPORT BG WAS >600 IN THE MORNING AND IMPLANTED INSULIN PUMP WAS NOT WORKING SO CAME TO ER AND WAS ADMITTED, NOW ON INSULIN DRIP AT 0.5U/HR, NS RUNNING 150ML/HR, RIGHT FOREARM 22G, A/OX4, AMBULATORY, SKIN INTACT, NO PAIN REPORTED, CONTINENT BOWEL AND BLADDER, ROOM AIR, SAFETY MEASURES IN PLACE, BED IN LOWEST LOCKED POSITION.
[2021-11-24] MEDS ORDERED: amLODIPine BESYLATE 5 MG TABLET PO SCH (09:00)
[2021-11-24] MEDS ORDERED: OMEPRAZOLE Non-Formulary 20 MG CAPSULE.DR PO SCH (09:00)
--- NOTE | 2021-11-24 09:25 | NUR ---
PATIENT TRIAL ON CPAP, PATIENT DID NOT TOLERATE WITH HEART RATE RISING TO 150, PRECEDEX RESTARTED AND PLACED BACK ON AC MODE NOW. Addendum: 11/24/21 at 0939 by [employer] paving contractor DISREGARD, WRONG PATIENT.
[2021-11-24] MEDS: DULoxetine HCL 30 MG CAPSULE.DR (CYMBALTA) PO SCH (09:32)
[2021-11-24] MEDS: METOPROLOL SUCCINATE 50 MG TAB.SR.24H (TOPROL XL) PO SCH (09:33)
[2021-11-24] MEDS: ATORVASTATIN 20 MG TABLET PO SCH (09:33)
[2021-11-24] MEDS: ASPIRIN 81 MG TABLET(ECOTRIN) PO SCH (09:34)
[2021-11-24] MEDS: PANTOPRAZOLE SODIUM 40 MG TAB PO SCH (09:34)
[2021-11-24 10:21] LABS: CALCIUM 8.3 mg/dL (8.4-11.0); CREATININE 1.87 mg/dL (0.55-1.30); POTASSIUM 3.8 mmol/L (3.5-5.1)
--- NOTE | 2021-11-24 10:26 | NUR ---
NOTIFIED DR FARIA THAT PATIENT IS ALLERGIC TO PORK AND EXPERIENCE SWELLING IN SINUSES AND THROAT LEADING TO DIFFICULTY BREAKING. ASKED IF WANTED TO DISCONTINUE LOVENOX SINCE IT IS PORK DERIVED. DR FARIA ORDERED TO STOP LOVENOX. IN ADDITION ORDERED TO DECREASED NORMAL SALINE TO 75ML/HR.
[2021-11-24 13:52] LABS: CALCIUM 8.3 mg/dL (8.4-11.0); CREATININE 1.56 mg/dL (0.55-1.30); POTASSIUM 3.9 mmol/L (3.5-5.1)
--- NOTE | 2021-11-24 16:11 | NUR ---
CALLED AND NOTIFIED DR FARIA OF ELEVATED BLOOD PRESSURE WITH SYSTOLIC IN THE 170S AND HEART RATE OF 90, ORDERED TO INCREASED DAILY DOSE OF APRESOLINE 10MG EVERY MORNING, HYDRALAZINE PO 50MG TID AND FIRST DOSE TO BE GIVEN NOW, AND A ONE TIME DOSE OF 5MG APRESOLINE TO BE GIVEN 2099.
[2021-11-24] MEDS ORDERED: hydrALAZINE HCL 25 MG TABLET PO ONE (16:30)
[2021-11-24 18:15] LABS: ANION GAP 7 (5-15); CALCIUM 8.7 mg/dL (8.4-11.0); CHLORIDE 101 mmol/L (98-107); CREATININE 1.55 mg/dL (0.55-1.30); GLUCOSE 246 mg/dL (70-99); SODIUM SERUM 132 mmol/L (136-145); UREA NITROGEN, BLOOD 26 mg/dL (8-21)
[2021-11-24 18:16] LABS: ACETONE, SERUM NEGATIVE (NEGATIVE); GFR AFRICAN AMERICAN 43 mL/min (>90)
[2021-11-24] MEDS ORDERED: hydrALAZINE HCL 20 MG/ML VIAL IVP PRN (19:15)
--- NOTE | 2021-11-24 19:18 | NUR ---
endorsed continuation of care to security shift supervisor
--- NOTE | 2021-11-24 19:20 | NUR ---
Assumed pt care report received frpm Josh RN met pt awake, alert oriented x4 with daughter at the bedside, vitals signs stable afebrile, education on care plan, she verbalized understanding, call light at reach, bed in low position encouraged her to call for help, she have hx of syncope, high fall risk, ongoing insulin drip as per care plan for DKA pt denies pain will continue to monitor and treat as per care plan. Also as at this time Dr Montero's rounds order received to change finger stick to Q2h also BMP Q4h additional meds added for high blood pressure tx.
[2021-11-24] MEDS: hydrALAZINE HCL 25 MG TABLET PO SCH (20:50)
[2021-11-24] MEDS: PRAMIPEXOLE DI-HCL 0.25 MG TABLET PO SCH (20:50)
[2021-11-24] MEDS: INSULIN GLARGINE 100 UNITS/ML 10 ML VIAL SUBCUT SCH (20:52)
[2021-11-24] MEDS ORDERED: amLODIPine BESYLATE 5 MG TABLET PO ONE (21:00)
[2021-11-24] MEDS ORDERED: ENOXAPARIN SODIUM 30 MG/0.3 ML SYRINGE SUBCUT SCH (21:00)
[2021-11-24] MEDS ORDERED: ROSUVASTATIN CALCIUM 5 MG/TAB (CRESTOR) PO SCH (21:00)
[2021-11-24 22:06] LABS: CALCIUM 8.7 mg/dL (8.4-11.0); CREATININE 1.56 mg/dL (0.55-1.30); POTASSIUM 3.9 mmol/L (3.5-5.1)
[2021-11-25] VITALS (24 sets, daily range): BP systolic 117–180
--- NOTE | 2021-11-25 00:15 | NUR ---
Patient been having issue with urine incontinence as she said that she is having problem with her bladder this is not new issue she dribbles frequently and is quiet embarrassing for her. Sanitary pads and panties provided, assistance with bath water and soap as per he preference. Linen changed and assisted back to bed. Bedside commode provided and pt verbalized appreciation also said she felt better.
[2021-11-25 06:09] LABS: BASOPHILS # (AUTO) 0.1 K/uL (0.0-0.2); BASOPHILS % (AUTO) 0.6 % (0.0-2.0); EOSINOPHILS % (AUTO) 0.1 % (0.0-4.0); HEMATOCRIT 31.5 % (36-48); HEMOGLOBIN 10.2 g/dL (12.0-16.0); LYMPHOCYTES # (AUTO) 2.4 K/uL (1.0-5.5); LYMPHOCYTES % (AUTO) 25.7 % (20.5-51.5); MEAN CORPUSCULAR HEMOGLOBIN 25 pg (27-31); MEAN CORPUSCULAR HGB CONC 32 % (32-36); MEAN CORPUSCULAR VOLUME 76 fL (79.0-98.0); MONOCYTES # (AUTO) 0.7 K/uL (0.0-1.0); MONOCYTES % (AUTO) 7.3 % (1.7-9.3); NEUTROPHILS # (AUTO) 6.1 K/uL (1.8-7.7); NEUTROPHILS % (AUTO) 66.3 % (40.0-70.0); PLATELET COUNT (AUTO) 300 K/uL (130-430); RED BLOOD CELL COUNT(AUTO) 4.15 MIL/uL (4.2-6.2); RED CELL DISTRIBUTION WIDTH 16.6 % (9.0-15.0); WHITE BLOOD COUNT (AUTO) 9.2 K/uL (4.8-10.8)
[2021-11-25 06:16] LABS: ANION GAP 9 (5-15); CALCIUM 8.6 mg/dL (8.4-11.0); CHLORIDE 100 mmol/L (98-107); CREATININE 1.41 mg/dL (0.55-1.30); GLUCOSE 182 mg/dL (70-99); POTASSIUM 3.9 mmol/L (3.5-5.1); SODIUM SERUM 137 mmol/L (136-145); UREA NITROGEN, BLOOD 18 mg/dL (8-21)
[2021-11-25 07:03] LABS: GFR AFRICAN AMERICAN 48 mL/min (>90)
--- NOTE | 2021-11-25 07:09 | NUR ---
Change of shift bedside report given to Josh RN for continuity of care as at this time pt awake alert oriented still on Insulin drip @0.5 units/hr no changes in care plan and condition.
[2021-11-25] MEDS: LevALBUTEROL HCL 1.25 MG/0.5 ML *CONC.* VIAL.NEB (XOPENEX CONC.) INH SCH ×3 (07:25→23:15)
--- NOTE | 2021-11-25 07:30 | NUR ---
PATIENT IN BED, NO S/S OF DISTRESS, ON 0.5U/HR OF INSULIN DRIP AND NS AT 75ML/HR, A/OX4, CONTINENT BOWEL AND BLADDER, AMBULATES INDEPENDENTLY, SKIN INTACT, STARTED ON LANTUS 10U LAST NIGHT, ACCU CHECKS Q2H, SAFETY MEASURES IN PLACE, BED IN LOWEST LOCKED POSITION, CALL LIGHT WITHIN REACH, WILL CONTINUE TO MONITOR.
[2021-11-25 09:35] LABS: CALCIUM 8.9 mg/dL (8.4-11.0); CREATININE 1.26 mg/dL (0.55-1.30); POTASSIUM 3.6 mmol/L (3.5-5.1)
[2021-11-25 09:39] LABS: ACETONE, SERUM NEGATIVE (NEGATIVE)
[2021-11-25] MEDS: DULoxetine HCL 30 MG CAPSULE.DR (CYMBALTA) PO SCH (09:44)
[2021-11-25] MEDS: ASPIRIN 81 MG TABLET(ECOTRIN) PO SCH (09:45)
[2021-11-25] MEDS: ATORVASTATIN 20 MG TABLET PO SCH (09:45)
[2021-11-25] MEDS: hydrALAZINE HCL 25 MG TABLET PO SCH ×3 (09:46→21:35)
[2021-11-25] MEDS: METOPROLOL SUCCINATE 50 MG TAB.SR.24H (TOPROL XL) PO SCH (09:47)
[2021-11-25] MEDS: amLODIPine BESYLATE 5 MG TABLET PO SCH (09:47)
[2021-11-25] MEDS: PANTOPRAZOLE SODIUM 40 MG TAB PO SCH (09:47)
--- NOTE | 2021-11-25 11:58 | NUR ---
PATIENT'S AT BEDSIDE, EDUCATED ON PLAN OF CARE WITH PATIENT, VOICED UNDERSTANDING.
[2021-11-25 13:13] LABS: CALCIUM 8.5 mg/dL (8.4-11.0); CREATININE 1.31 mg/dL (0.55-1.30); POTASSIUM 3.7 mmol/L (3.5-5.1)
[2021-11-25] MEDS: NACL 0.9% 1,000 ML IV SCH (14:40)
--- NOTE | 2021-11-25 15:17 | NUR ---
Dietitian Recommendations * CCHO, 2 gm Na diet, Glucerna BID (ONS yields 440 kcal/day, 20 gm protein/day) * Encourage increase PO intakes LP, RD Please refer to Nutrition Assessment for details. Addendum: 11/25/21 at [address] Amended: Links added.
--- NOTE | 2021-11-25 19:05 | NUR ---
Assumed pt care report received from Josh RN updates at the bedside met pt awake alert oriented x4 vitals signs stable denies pain, ongoing Insulin drip 0.5units/hr, no complain said she is feeling better and expecting Dr Montero. Education on care plan and she verbalized understanding. Continuity of care and treat.
[2021-11-25 19:10] LABS: CALCIUM 8.4 mg/dL (8.4-11.0); CREATININE 1.38 mg/dL (0.55-1.30); POTASSIUM 3.4 mmol/L (3.5-5.1)
--- NOTE | 2021-11-25 19:16 | NUR ---
ENDORSED CONTINUATION OF CARE TO NIGHT.
[2021-11-25] MEDS: PRAMIPEXOLE DI-HCL 0.25 MG TABLET PO SCH (21:35)
[2021-11-25] MEDS: INSULIN GLARGINE 100 UNITS/ML 10 ML VIAL SUBCUT SCH (21:38)
[2021-11-25 21:40] LABS: CALCIUM 8.3 mg/dL (8.4-11.0); CREATININE 1.26 mg/dL (0.55-1.30); POTASSIUM 3.5 mmol/L (3.5-5.1)
--- NOTE | 2021-11-25 22:45 | NUR ---
Dr Montero rounds at the bedside updates on pt's condition, discussed care plan, pt complained of Insomnia blood sugar trend order received to give additional Lantus 5 units SQ and Benadryl 25mg PO x1 for Insomnia.
[2021-11-25] MEDS ORDERED: DIPHENHYDRAMINE HCL 12.5 MG/5 ML UDC PO ONE (23:00)
[2021-11-25] MEDS ORDERED: DIPHENHYDRAMINE HCL 25 MG CAPSULE PO PRN (23:15)
[2021-11-25] MEDS ORDERED: INSULIN GLARGINE 100 UNITS/ML 10 ML VIAL SUBCUT ONE (23:15)
[2021-11-26] VITALS (17 sets, daily range): BP systolic 118–166
[2021-11-26] MEDS: NACL 0.9% 1,000 ML IV SCH ×2 (00:32→17:10)
[2021-11-26 06:50] LABS: CALCIUM 8.5 mg/dL (8.4-11.0); CREATININE 1.26 mg/dL (0.55-1.30); POTASSIUM 3.7 mmol/L (3.5-5.1)
--- NOTE | 2021-11-26 07:14 | NUR ---
Change of shift report given to Grant VALENTIN at the bedside for continuity of care no changes in care plan and pt's condition
--- NOTE | 2021-11-26 07:30 | NUR ---
Received report from nightshift RN at bedside. Patient is resting in bed in no signs of acute distress. Patient is alert and oriented to person, place, time and event. Patient states she is feeling "better than yesterday" and is ready to go home. Skin is intact, no signs of impaired skin integrity and color is normal per the patient. Patient is breathing on Room air and no signs of respiratory distress. Patient is a pleasant woman who has no concerns at the moment.
[2021-11-26] MEDS: LevALBUTEROL HCL 1.25 MG/0.5 ML *CONC.* VIAL.NEB (XOPENEX CONC.) INH SCH ×3 (07:45→23:00)
[2021-11-26] MEDS: hydrALAZINE HCL 25 MG TABLET PO SCH ×3 (10:13→21:53)
[2021-11-26] MEDS: ASPIRIN 81 MG TABLET(ECOTRIN) PO SCH (10:14)
[2021-11-26] MEDS: DULoxetine HCL 30 MG CAPSULE.DR (CYMBALTA) PO SCH (10:14)
[2021-11-26] MEDS: ATORVASTATIN 20 MG TABLET PO SCH (10:14)
[2021-11-26] MEDS: PANTOPRAZOLE SODIUM 40 MG TAB PO SCH (10:14)
[2021-11-26] MEDS: amLODIPine BESYLATE 5 MG TABLET PO SCH (10:15)
[2021-11-26] MEDS: METOPROLOL SUCCINATE 50 MG TAB.SR.24H (TOPROL XL) PO SCH (10:15)
--- NOTE | 2021-11-26 12:48 | NUR ---
Patients blood sugar reading is at 96. Insulin drip has been turned off and Dr. Montero has been notified. Orders have been changed to Accuchecks: ACHS and placed on regular insulin.
[2021-11-26] MEDS ORDERED: LOSARTAN POTASSIUM 50 MG TABLET (COZAAR) PO ONE (13:45)
--- NOTE | 2021-11-26 13:45 | NUR ---
Transfer Patient has been transferred to Telemetry unit, room 101 Bed A. Patient was transferred via wheelchair and all belongings have been sent with patient. Bedside report given to nurse.
--- NOTE | 2021-11-26 15:21 | NUR ---
PATIENT MOVED TO ROOM 101 BED B, PATIENT AOX4 ON RA WITH EQUAL CHEST RISE AND FALL, SINUS ON THE MONITOR, WITH A RATE OF 76, ABD SOFT ROUND AND NON-TENDER, PATIENT CONTINENT TO B&B, AMBULATES WITH STEADY GAIT. SKIN IS CLEAN DRY AND INTACT, RIGHT HAND 22G PIV NOTED WITH FLUIDS RUNNING AT 75ML/HR PER ORDER. PATIENT IS FRIENDLY AND COOPERATIVE, BED LOW AND LOCKED FOR SAFETY WITH CALL LIGHT IN REACH, PATIENT HAS DEMONSTRATED PROPER ISE OF CALL LIGHT. MONITORING AT THIS TIME, CHARGE AWARE OF TRANSFER.
--- NOTE | 2021-11-26 16:00 | NUR ---
PATIENT GIVEN HYGIENE PRODUCTS, PATIENT STATED SHE WILL GIVE HERSELF A BATH IN THE ROOM, TOWELS PROVIDED WITH BASIN AND BODY WASH.
--- NOTE | 2021-11-26 17:00 | NUR ---
BS222 COVERED WITH 4 UNITS PER ORDER
[2021-11-26] MEDS: INSULIN REGULAR, HUMAN 100 UNITS/ML, 10 ML VIAL (humuLIN R) SUBCUT PRN ×2 (17:21→22:01)
--- NOTE | 2021-11-26 17:42 | NUR ---
AT BEDSIDE, ALL QUESTIONS ANSWERED AT THIS TIME.
--- NOTE | 2021-11-26 19:14 | NUR ---
CLOSING NOTE: REPORT GIVEN TO INCOMING NOC RN , ALL CARES ENDORSED
[2021-11-26] MEDS: PRAMIPEXOLE DI-HCL 0.25 MG TABLET PO SCH (21:52)
[2021-11-26] MEDS: LOSARTAN POTASSIUM 50 MG TABLET (COZAAR) PO SCH (21:53)
[2021-11-26] MEDS: INSULIN GLARGINE 100 UNITS/ML 10 ML VIAL SUBCUT SCH (22:00)
[2021-11-27 00:08] VITALS: BP_SYST 151
--- NOTE | 2021-11-27 01:45 | NUR ---
Patient resting in bed, unlabored breathing on room air. Has gotten up to the bedside commode several times with steady gait. Call light in reach, fall and safety precautions maintained.
--- NOTE | 2021-11-27 04:30 | NUR ---
Rounds Assisted patient to commode. No complaint of pain or dizziness. IV fluid infusing as ordered. Call light in reach, fall and safety precautions in place.
[2021-11-27] MEDS: NACL 0.9% 1,000 ML IV SCH ×2 (06:24→16:01)
[2021-11-27] MEDS: LevALBUTEROL HCL 1.25 MG/0.5 ML *CONC.* VIAL.NEB (XOPENEX CONC.) INH SCH ×3 (07:23→22:28)
--- NOTE | 2021-11-27 07:33 | NUR ---
Closing Patient resting in bed, AOx4. Blood sugar 80 this morning. Patient states she hasn't had much of an appetite, but did have one apple juice. Encouraged to eat some breakfast. Care endorsed to oncoming nurse.
--- NOTE | 2021-11-27 08:01 | NUR ---
INITIAL ROUNDS Received pt AAOX4, no s/s resp distress, no c/o pain or discomfort. IVF infusing well to right hand at ordered rate with no s/s infiltration to site. Plan of care for the day reviewed with pt-pt verbalized her understanding. Pain management, disease process, skin and safety discussed-teach back done. Call light within reach.
[2021-11-27 08:44] VITALS: BP_SYST 149
[2021-11-27] MEDS: amLODIPine BESYLATE 5 MG TABLET PO SCH (09:40)
[2021-11-27] MEDS: METOPROLOL SUCCINATE 50 MG TAB.SR.24H (TOPROL XL) PO SCH (09:40)
[2021-11-27] MEDS: LOSARTAN POTASSIUM 50 MG TABLET (COZAAR) PO SCH ×2 (09:41→20:38)
[2021-11-27] MEDS: DULoxetine HCL 30 MG CAPSULE.DR (CYMBALTA) PO SCH (09:41)
[2021-11-27] MEDS: ATORVASTATIN 20 MG TABLET PO SCH (09:43)
[2021-11-27] MEDS: hydrALAZINE HCL 25 MG TABLET PO SCH ×3 (09:43→20:38)
[2021-11-27] MEDS: ASPIRIN 81 MG TABLET(ECOTRIN) PO SCH (09:43)
[2021-11-27] MEDS: PANTOPRAZOLE SODIUM 40 MG TAB PO SCH (09:43)
[2021-11-27] MEDS: INSULIN REGULAR, HUMAN 100 UNITS/ML, 10 ML VIAL (humuLIN R) SUBCUT PRN ×2 (12:11→20:50)
[2021-11-27 16:10] VITALS: BP_SYST 150
--- NOTE | 2021-11-27 18:27 | NUR ---
CLOSING NOTE Pt resting quietly in bed with no s/s resp distress, no c/o pain or discomfort. IVF infusing well to right hand at ordered rate with no s/s infiltration to site. Skin and safety precautions remain in place. Needs met, call light within reach.
[2021-11-27 20:00] VITALS: BP_SYST 157
[2021-11-27] MEDS: PRAMIPEXOLE DI-HCL 0.25 MG TABLET PO SCH (20:38)
[2021-11-27] MEDS: INSULIN GLARGINE 100 UNITS/ML 10 ML VIAL SUBCUT SCH (20:45)
[2021-11-28 00:28] VITALS: BP_SYST 145
--- NOTE | 2021-11-28 02:30 | NUR ---
APPROXIMATELY AT THIS TIME NEW IV INSERTED [id number]
[2021-11-28] MEDS: NACL 0.9% 1,000 ML IV SCH ×2 (06:29→20:20)
--- NOTE | 2021-11-28 06:51 | NUR ---
CLOSING NOTES Patient resting in bed - no s/s pain or distress noted. Respirations even and unlabored - head of bed elevated. IV site patent - no s/s redness, infection, or infiltration. Bed locked and in lowest position. Call light within reach.
[2021-11-28 06:56] LABS: BASOPHILS % (AUTO) 0.5 % (0.0-2.0); HEMATOCRIT 32.9 % (36-48); HEMOGLOBIN 10.7 g/dL (12.0-16.0); LYMPHOCYTES # (AUTO) 1.8 K/uL (1.0-5.5); LYMPHOCYTES % (AUTO) 23.8 % (20.5-51.5); MEAN CORPUSCULAR HEMOGLOBIN 24 pg (27-31); MEAN CORPUSCULAR HGB CONC 33 % (32-36); MEAN CORPUSCULAR VOLUME 75 fL (79.0-98.0); MONOCYTES # (AUTO) 0.7 K/uL (0.0-1.0); MONOCYTES % (AUTO) 8.7 % (1.7-9.3); NEUTROPHILS # (AUTO) 5.1 K/uL (1.8-7.7); PLATELET COUNT (AUTO) 280 K/uL (130-430); RED BLOOD CELL COUNT(AUTO) 4.38 MIL/uL (4.2-6.2); RED CELL DISTRIBUTION WIDTH 16.8 % (9.0-15.0); WHITE BLOOD COUNT (AUTO) 7.6 K/uL (4.8-10.8)
[2021-11-28] MEDS: LevALBUTEROL HCL 1.25 MG/0.5 ML *CONC.* VIAL.NEB (XOPENEX CONC.) INH SCH ×3 (07:27→23:51)
[2021-11-28 07:54] LABS: ALBUMIN 2.8 g/dL (3.4-4.8); CALCIUM 8.4 mg/dL (8.4-11.0); CREATININE 1.18 mg/dL (0.55-1.30); POTASSIUM 3.1 mmol/L (3.5-5.1); TOTAL BILIRUBIN 0.2 mg/dL (0.0-1.0)
[2021-11-28 08:16] VITALS: BP_SYST 172
[2021-11-28] MEDS: DULoxetine HCL 30 MG CAPSULE.DR (CYMBALTA) PO SCH (09:19)
[2021-11-28] MEDS: hydrALAZINE HCL 25 MG TABLET PO SCH ×3 (09:19→20:11)
[2021-11-28] MEDS: LOSARTAN POTASSIUM 50 MG TABLET (COZAAR) PO SCH ×2 (09:20→20:11)
[2021-11-28] MEDS: ASPIRIN 81 MG TABLET(ECOTRIN) PO SCH (09:20)
[2021-11-28] MEDS: PANTOPRAZOLE SODIUM 40 MG TAB PO SCH (09:20)
[2021-11-28] MEDS: METOPROLOL SUCCINATE 50 MG TAB.SR.24H (TOPROL XL) PO SCH (09:20)
[2021-11-28] MEDS: amLODIPine BESYLATE 5 MG TABLET PO SCH (09:21)
[2021-11-28] MEDS: ATORVASTATIN 20 MG TABLET PO SCH (09:21)
--- NOTE | 2021-11-28 09:35 | NUR ---
INITIAL ROUNDS Received pt AAOX4, no s/s resp distress, no c/o pain or discomfort. IVF infusing well to RFA at ordered rate with no s/s infiltration to site. Plan of care for the day reviewed with pt-pt verbalized her understanding-pt hoping to go home soon. Pain management, disease process, skin and safety discussed-teach back done. Call light within reach.
--- NOTE | 2021-11-28 11:15 | NUR ---
MICHELLE/ CALLED Pt resting quietly in bed with no s/s resp distress, no c/o pain or discomfort. Nathalia Flores called regarding pt's K+ 3.1, awaiting call back. No changes, call light within reach.
[2021-11-28] MEDS: INSULIN REGULAR, HUMAN 100 UNITS/ML, 10 ML VIAL (humuLIN R) SUBCUT PRN ×3 (12:11→20:17)
[2021-11-28] MEDS ORDERED: POTASSIUM CHLORIDE 20 MEQ TAB.PRT.SR PO ONE (13:15)
[2021-11-28 14:34] VITALS: BP_SYST 143
[2021-11-28 17:25] VITALS: BP_SYST 145
--- NOTE | 2021-11-28 18:57 | NUR ---
CLOSING NOTE Pt resting quietly in bed with no s/s resp distress, no c/o pain or discomfort. IVF infusing well to RFA at ordered rate with no s/s infiltration to site. Skin and safety precautions remain in place. Pt's son at bedside. Needs met, call light within reach.
--- NOTE | 2021-11-28 19:15 | NUR ---
OPENING NOTES Patient resting in bed - no s/s pain or distress noted. Respirations even and unlabored - head of bed elevated. IV site patent - no s/s redness, infection, or infiltration. Bed locked and in lowest position. Call light within reach. Son at bedside.
[2021-11-28 20:00] VITALS: BP_SYST 146
[2021-11-28] MEDS: PRAMIPEXOLE DI-HCL 0.25 MG TABLET PO SCH (20:12)
[2021-11-28] MEDS: INSULIN GLARGINE 100 UNITS/ML 10 ML VIAL SUBCUT SCH (20:16)
[2021-11-29 00:06] VITALS: BP_SYST 144
[2021-11-29 06:51] LABS: BASOPHILS % (AUTO) 0.3 % (0.0-2.0); HEMATOCRIT 31.2 % (36-48); HEMOGLOBIN 10.2 g/dL (12.0-16.0); LYMPHOCYTES % (AUTO) 28.5 % (20.5-51.5); MEAN CORPUSCULAR HEMOGLOBIN 25 pg (27-31); MEAN CORPUSCULAR HGB CONC 33 % (32-36); MEAN CORPUSCULAR VOLUME 75 fL (79.0-98.0); MONOCYTES # (AUTO) 0.8 K/uL (0.0-1.0); MONOCYTES % (AUTO) 10.6 % (1.7-9.3); NEUTROPHILS # (AUTO) 4.3 K/uL (1.8-7.7); NEUTROPHILS % (AUTO) 60.6 % (40.0-70.0); PLATELET COUNT (AUTO) 259 K/uL (130-430); RED BLOOD CELL COUNT(AUTO) 4.15 MIL/uL (4.2-6.2); RED CELL DISTRIBUTION WIDTH 17.2 % (9.0-15.0); WHITE BLOOD COUNT (AUTO) 7.1 K/uL (4.8-10.8)
[2021-11-29] MEDS: LevALBUTEROL HCL 1.25 MG/0.5 ML *CONC.* VIAL.NEB (XOPENEX CONC.) INH SCH ×2 (07:37→15:26)
[2021-11-29 07:50] LABS: CALCIUM 8.7 mg/dL (8.4-11.0); CREATININE 1.26 mg/dL (0.55-1.30); POTASSIUM 3.4 mmol/L (3.5-5.1)
[2021-11-29 07:52] VITALS: BP_SYST 132
--- NOTE | 2021-11-29 07:52 | NUR ---
INITIAL ROUNDS Received pt AAOX4, no s/s resp distress, no c/o pain or discomfort. IVF infusing well to RFA at ordered rate with no s/s infiltration to site. Plan of care for the day reviewed with pt-pt verbalized her understanding-pt hoping to go home today. Pain management, disease process, skin and safety discussed-teach back done. Call light within reach.
[2021-11-29 08:52] VITALS: BP_SYST 132
[2021-11-29] MEDS: hydrALAZINE HCL 25 MG TABLET PO SCH ×2 (09:56→15:53)
[2021-11-29] MEDS: LOSARTAN POTASSIUM 50 MG TABLET (COZAAR) PO SCH (09:56)
[2021-11-29] MEDS: METOPROLOL SUCCINATE 50 MG TAB.SR.24H (TOPROL XL) PO SCH (09:57)
[2021-11-29] MEDS: amLODIPine BESYLATE 5 MG TABLET PO SCH (09:57)
[2021-11-29] MEDS: PANTOPRAZOLE SODIUM 40 MG TAB PO SCH (09:59)
[2021-11-29] MEDS: ASPIRIN 81 MG TABLET(ECOTRIN) PO SCH (09:59)
[2021-11-29] MEDS: ATORVASTATIN 20 MG TABLET PO SCH (10:00)
[2021-11-29] MEDS: DULoxetine HCL 30 MG CAPSULE.DR (CYMBALTA) PO SCH (10:00)
[2021-11-29 11:22] VITALS: BP_SYST 136
[2021-11-29] MEDS: INSULIN REGULAR, HUMAN 100 UNITS/ML, 10 ML VIAL (humuLIN R) SUBCUT PRN ×2 (11:50→17:05)
[2021-11-29] MEDS ORDERED: POTASSIUM CHLORIDE 20 MEQ TAB.PRT.SR PO ONE (12:15)
[2021-11-29 15:42] VITALS: BP_SYST 123
[2021-11-29 17:32] VITALS: BP_SYST 123
[2021-11-29] MEDS: INSULIN GLARGINE 100 UNITS/ML 10 ML VIAL SUBCUT SCH (18:46)
--- NOTE | 2021-11-29 19:03 | NUR ---
PATIENT DISCHARGED Patient given medication reconciliation form and D/C instructions. Exit Care on Hyperglycemia, Norvasc, Hydralazine, and Losartan explained and provided. Patient verbalized her understanding. MD discussed with patient the results and treatment provided. Ambulatory with steady gait for discharge to home. Patient in stable condition, ID band removed. IV catheter removed, intact and dressing applied, no active bleeding. Rx given. Patient educated on pain management. All belongings sent with patient. Patient left floor via wheelchair to private vehicle in no distress.
== END 2021-11-29 18:55 | disposition home or self-care (01) | DRG 637 ==
LOC: SED 15:53 → SIC 17:37 → STU 11-26 15:26
PROVIDERS: ADMIT Family Medicine; ATTEND Family Medicine
DX: E11.10 Type 2 diabetes mellitus with ketoacidosis without coma (principal); N17.0 Acute kidney failure with tubular necrosis; E86.0 Dehydration; D64.9 Anemia, unspecified; Z20.822 Contact with and (suspected) exposure to COVID-19; I10 Essential (primary) hypertension; Z79.4 Long term (current) use of insulin; Z88.8 Allergy status to other drugs, medicaments and biological substances; Z91.040 Latex allergy status; Z88.0 Allergy status to penicillin; Z91.014 Allergy to mammalian meats; Z91.013 Allergy to seafood; Z79.899 Other long term (current) drug therapy
CPT/HCPCS: 36415; 36600; 71045; 80048; 80053; 81000; 82009; 82803-TC; 82962; 83735; 83880; 84100; 84484; 85025; 87081; 93005; 94640; 94760; 96361; 96365; 96366; 97116-GP; 99285; G0378; J0360; J1815; J7120; J7612

== ENCOUNTER 2022-11-26 09:57 | Emergency (ER) | payer OTHER ==
[~2022-11-26] VITALS: Ht 165.1 cm; Wt 75.3 kg
[~2022-11-26 09:57] MED LIST changes: -AMLO5TAB4 PO; -AMLO5TAB92 PO; -LOSA1TAB15 PO
[2022-11-26 10:01] VITALS: BP_SYST 132
--- NOTE | 2022-11-26 10:09 | NUR ---
PT TRIAGED AND PLACED IN BED 2. ENDORSED TO HOMERO JOSHI. PT NASIMA ALS FOR C/O HYPOGLYCEMIA, BS 49 UPON ARRIVAL. PT BS NOW 125. PT FROM HOME. HAS HX OF DM, HTN. PT
--- NOTE | 2022-11-26 10:20 | NUR ---
Ordered a diabetic food tray stat.
--- NOTE | 2022-11-26 10:22 | NUR ---
Patient becoming more alert. Patient seen by MD, several staffing operations manager's. Labs, Xray and ECG completed.
[2022-11-26 10:54] LABS: CALCIUM 8.9 mg/dL (8.4-11.0); CREATININE 1.66 mg/dL (0.55-1.30)
[2022-11-26 10:58] LABS: BASOPHILS % (AUTO) 0.3 % (0.0-2.0); HEMATOCRIT 27.7 % (36-48); HEMOGLOBIN 8.7 g/dL (12.0-16.0); LYMPHOCYTES # (AUTO) 1.3 K/uL (1.0-5.5); LYMPHOCYTES % (AUTO) 20.8 % (20.5-51.5); MEAN CORPUSCULAR HEMOGLOBIN 23 pg (27-31); MEAN CORPUSCULAR HGB CONC 32 % (32-36); MEAN CORPUSCULAR VOLUME 74 fL (79.0-98.0); MONOCYTES # (AUTO) 0.6 K/uL (0.0-1.0); MONOCYTES % (AUTO) 9.9 % (1.7-9.3); NEUTROPHILS # (AUTO) 4.4 K/uL (1.8-7.7); PLATELET COUNT (AUTO) 289 K/uL (130-430); RED BLOOD CELL COUNT(AUTO) 3.76 MIL/uL (4.2-6.2); RED CELL DISTRIBUTION WIDTH 18.1 % (9.0-15.0); WHITE BLOOD COUNT (AUTO) 6.4 K/uL (4.8-10.8)
[2022-11-26 10:59] LABS: ALBUMIN 3.1 g/dL (3.4-4.8); TOTAL BILIRUBIN 0.1 mg/dL (0.0-1.0)
--- NOTE | 2022-11-26 11:24 | NUR ---
Patient keeps stating that she is not hungry. Insisted that patient eat sandwich at this time. Patient complied.
--- NOTE | 2022-11-26 13:13 | NUR ---
Patient awaiting to come pick her up and bring her clean clothes. Patient given a full lunch including pasta, bread and juices.
--- NOTE | 2022-11-26 13:21 | NUR ---
Patient given written and verbal discharge instructions and verbalizes understanding. ER MD discussed with patient the results and treatment provided. Patient in stable condition. ID arm band removed. IV catheter removed intact and dressing applied, no active bleeding. Patient educated on insulin management and to follow up with PMD. Pain Scale 0/10. Opportunity for questions provided and answered. Medication side effect fact sheet provided.
[2022-11-26 13:23] VITALS: BP_SYST 152
== END 2022-11-26 13:21 | disposition home or self-care (01) ==
LOC: SED 09:57
DX: E11.649 Type 2 diabetes mellitus with hypoglycemia without coma (principal); T38.3X5A Adverse effect of insulin and oral hypoglycemic [antidiabetic] drugs, initial encounter; R41.82 Altered mental status, unspecified; I10 Essential (primary) hypertension; J45.909 Unspecified asthma, uncomplicated; Z79.4 Long term (current) use of insulin; Z88.0 Allergy status to penicillin; Z88.1 Allergy status to other antibiotic agents; Z88.6 Allergy status to analgesic agent; Z91.040 Latex allergy status; Z91.013 Allergy to seafood; Z79.899 Other long term (current) drug therapy; Y92.89 Other specified places as the place of occurrence of the external cause
CPT/HCPCS: 36415; 71045; 80053; 82962; 85025; 93005; 99285

== ENCOUNTER 2022-12-01 22:30 | Emergency (ER) | payer OTHER ==
[~2022-12-01] VITALS: Ht 165.1 cm; Wt 78.0 kg
[2022-12-01 23:06] VITALS: BP_SYST 125
--- NOTE | 2022-12-01 23:06 | NUR ---
Patient triaged and placed back to the waiting room. Vital signs updated, denied any acute distress at this time. Instructed to notify ED staff for any changes in condition or worsening of symptoms. Patient verbalized understanding.
--- NOTE | 2022-12-02 00:20 | NUR ---
Patient placed in ER Bed 3 for evaluation. Bed in lowest position with siderails up. Report given to Jessica RN for continuity of care. Instructed to notify ED staff for any changes in condition or worsening of symptoms. Patient verbalized understanding.
[2022-12-02] MEDS ORDERED: DEXTROSE 50% JECT 50 ML DISP.SYRIN ONE (00:21)
--- NOTE | 2022-12-02 00:22 | NUR ---
BS OF 37, MADE AWARE.
--- NOTE | 2022-12-02 00:23 | NUR ---
Dr. MELTON at bedside examining the patient.
--- NOTE | 2022-12-02 01:00 | NUR ---
blood sugar recheck 156
[2022-12-02 02:21] LABS: BASOPHILS % (AUTO) 0.4 % (0.0-2.0); HEMATOCRIT 26.8 % (36-48); HEMOGLOBIN 8.6 g/dL (12.0-16.0); LYMPHOCYTES # (AUTO) 1.3 K/uL (1.0-5.5); LYMPHOCYTES % (AUTO) 17.4 % (20.5-51.5); MEAN CORPUSCULAR HEMOGLOBIN 24 pg (27-31); MEAN CORPUSCULAR HGB CONC 32 % (32-36); MEAN CORPUSCULAR VOLUME 73 fL (79.0-98.0); MONOCYTES # (AUTO) 0.7 K/uL (0.0-1.0); NEUTROPHILS # (AUTO) 5.4 K/uL (1.8-7.7); NEUTROPHILS % (AUTO) 73.2 % (40.0-70.0); PLATELET COUNT (AUTO) 345 K/uL (130-430); RED BLOOD CELL COUNT(AUTO) 3.67 MIL/uL (4.2-6.2); RED CELL DISTRIBUTION WIDTH 18.3 % (9.0-15.0); WHITE BLOOD COUNT (AUTO) 7.4 K/uL (4.8-10.8)
[2022-12-02] MEDS ORDERED: BACLOFEN 10 MG TABLET PO ONE (02:30)
[2022-12-02 02:34] LABS: CALCIUM 9.5 mg/dL (8.4-11.0)
[2022-12-02 02:35] LABS: CREATININE 1.89 mg/dL (0.55-1.30)
[2022-12-02] MEDS ORDERED: IBUPROFEN 400 MG TABLET PO ONE (03:45)
[2022-12-02] MEDS ORDERED: BACLOFEN 10 MG TABLET ONE (03:45)
[2022-12-02] MEDS ORDERED: ACETAMINOPHEN 500 MG TABLET PO ONE (03:45)
--- NOTE | 2022-12-02 05:10 | NUR ---
Patient given written and verbal discharge instructions and verbalizes understanding. ER MD discussed with patient the results and treatment provided. Patient in stable condition. ID arm band removed. IV catheter removed intact and dressing applied, no active bleeding. Rx of given. Patient educated on pain management and to follow up with PMD. Pain Scale 3/10. Opportunity for questions provided and answered. Medication side effect fact sheet provided.
[2022-12-02 05:18] VITALS: BP_SYST 137
== END 2022-12-02 05:18 | disposition home or self-care (01) ==
LOC: SED 22:30
DX: E11.649 Type 2 diabetes mellitus with hypoglycemia without coma (principal); R41.82 Altered mental status, unspecified; D53.9 Nutritional anemia, unspecified; R25.2 Cramp and spasm; I12.9 Hypertensive chronic kidney disease with stage 1 through stage 4 chronic kidney disease, or unspecified chronic kidney disease; E11.22 Type 2 diabetes mellitus with diabetic chronic kidney disease; N18.9 Chronic kidney disease, unspecified; J45.909 Unspecified asthma, uncomplicated; Z79.4 Long term (current) use of insulin; Z88.0 Allergy status to penicillin; Z88.1 Allergy status to other antibiotic agents; Z91.041 Radiographic dye allergy status; Z91.018 Allergy to other foods; Z79.899 Other long term (current) drug therapy
CPT/HCPCS: 36415; 80048; 82962; 85025; 99291

== ENCOUNTER 2023-01-09 09:58 | Inpatient (IN) | payer OTHER ==
[~2023-01-09] VITALS: Ht 165.1 cm; Wt 77.2 kg
[2023-01-09 10:23] VITALS: BP_SYST 147; PULSE 79; RESP 20; TEMP 97.8; O2SAT 98
[2023-01-09 10:25] LABS: BASOPHILS % (AUTO) 0.7 % (0.0-2.0); HEMATOCRIT 32.1 % (36-48); LYMPHOCYTES # (AUTO) 1.2 K/uL (1.0-5.5); LYMPHOCYTES % (AUTO) 18.6 % (20.5-51.5); MEAN CORPUSCULAR HEMOGLOBIN 24 pg (27-31); MEAN CORPUSCULAR HGB CONC 31 % (32-36); MEAN CORPUSCULAR VOLUME 76 fL (79.0-98.0); MONOCYTES # (AUTO) 0.5 K/uL (0.0-1.0); MONOCYTES % (AUTO) 8.1 % (1.7-9.3); NEUTROPHILS # (AUTO) 4.5 K/uL (1.8-7.7); NEUTROPHILS % (AUTO) 72.6 % (40.0-70.0); PLATELET COUNT (AUTO) 323 K/uL (130-430); RED BLOOD CELL COUNT(AUTO) 4.23 MIL/uL (4.2-6.2); RED CELL DISTRIBUTION WIDTH 18.8 % (9.0-15.0); WHITE BLOOD COUNT (AUTO) 6.2 K/uL (4.8-10.8)
[2023-01-09 10:56] LABS: ALANINE AMINOTRANSFERASE 15 U/L (12-78); ALBUMIN 3.6 g/dL (3.4-4.8); AMYLASE 56 U/L (0-100); ANION GAP 15 (5-15); ASPARTATE AMINOTRANSFERASE 9 U/L (10-37); CALCIUM 9.9 mg/dL (8.4-11.0); CHLORIDE 95 mmol/L (98-107); CREATININE 2.68 mg/dL (0.55-1.30); LIPASE 96 U/L (73-393); TOTAL BILIRUBIN 0.4 mg/dL (0.0-1.0); UREA NITROGEN, BLOOD 31 mg/dL (8-21)
[2023-01-09 11:02] LABS: GFR AFRICAN AMERICAN 23 mL/min (>90)
[2023-01-09 11:03] LABS: GLUCOSE 508 mg/dL (74-106)
[2023-01-09 11:10] LABS: ACETONE, SERUM TRACE (NEGATIVE)
[2023-01-09] MEDS ORDERED: NACL 0.9% 1,000 ML IV ONE (12:00)
[2023-01-09] MEDS ORDERED: INSULIN REGULAR, HUMAN 10 UNITS/0.1 ML, 3 ML VIAL IVP ONE (12:00)
[2023-01-09] MEDS: NACL 0.9% 1,000 ML IV SCH ×2 (12:52→21:54)
[2023-01-09] MEDS ORDERED: LevALBUTEROL HCL 1.25 MG/0.5 ML *CONC.* VIAL.NEB (XOPENEX CONC.) INH PRN (14:00)
[2023-01-09] MEDS ORDERED: ACETAMINOPHEN 325 MG TABLET PO PRN (14:00)
[2023-01-09 14:23] VITALS: BP_SYST 147; PULSE 79; O2SAT 98
[2023-01-09] MEDS ORDERED: INSULIN REGULAR, HUMAN 100 UNITS/ML, 3 ML VIAL (humuLIN R) SUBCUT SCH (17:00)
[2023-01-09] MEDS ORDERED: ATORVASTATIN 20 MG TABLET PO SCH (21:00)
[2023-01-09] MEDS ORDERED: ENOXAPARIN SODIUM 30 MG/0.3 ML SYRINGE SUBCUT SCH (21:00)
[2023-01-09] MEDS ORDERED: INSULIN GLARGINE 100 UNITS/ML, 10 ML VIAL SUBCUT SCH (21:00)
[2023-01-09] MEDS ORDERED: ROSUVASTATIN CALCIUM 5 MG/TAB (CRESTOR) PO SCH (21:00)
[2023-01-09] MEDS ORDERED: PRAMIPEXOLE DI-HCL 0.25 MG TABLET PO SCH (21:00)
[2023-01-09 21:30] VITALS: BP_SYST 153; PULSE 81; RESP 20; TEMP 98.4; O2SAT 96
[2023-01-09] MEDS: INSULIN REGULAR, HUMAN 100 UNITS/ML, 3 ML VIAL (humuLIN R) SUBCUT PRN (22:27)
[2023-01-10 00:19] VITALS: BP_SYST 118; PULSE 72; RESP 19; TEMP 98.6; O2SAT 96
[2023-01-10 05:38] LABS: BILIRUBIN,URINE NEGATIVE (NEGATIVE); BLOOD, URINE NEGATIVE (NEGATIVE); COLOR,URINE YELLOW (YELLOW); GLUCOSE,URINE 2+ (NEGATIVE); KETONES,URINE 1+ (NEGATIVE); LEUKOCYTE ESTERASE ,URINE TRACE (NEGATIVE); NITRITE, URINE NEGATIVE (NEGATIVE); PROTEIN URINE 2+ (NEGATIVE); UROBILINOGEN,URINE 0.2 (0.2-1.0)
[2023-01-10] MEDS: INSULIN REGULAR, HUMAN 100 UNITS/ML, 3 ML VIAL (humuLIN R) SUBCUT PRN ×2 (05:43→11:47)
[2023-01-10 05:47] LABS: BASOPHILS # (AUTO) 0.1 K/uL (0.0-0.2); BASOPHILS % (AUTO) 0.6 % (0.0-2.0); HEMATOCRIT 29.3 % (36-48); HEMOGLOBIN 9.4 g/dL (12.0-16.0); LYMPHOCYTES % (AUTO) 23.8 % (20.5-51.5); MEAN CORPUSCULAR HEMOGLOBIN 24 pg (27-31); MEAN CORPUSCULAR HGB CONC 32 % (32-36); MEAN CORPUSCULAR VOLUME 75 fL (79.0-98.0); MONOCYTES # (AUTO) 0.9 K/uL (0.0-1.0); MONOCYTES % (AUTO) 10.4 % (1.7-9.3); NEUTROPHILS # (AUTO) 5.6 K/uL (1.8-7.7); NEUTROPHILS % (AUTO) 65.2 % (40.0-70.0); PLATELET COUNT (AUTO) 289 K/uL (130-430); RED BLOOD CELL COUNT(AUTO) 3.91 MIL/uL (4.2-6.2); RED CELL DISTRIBUTION WIDTH 18.9 % (9.0-15.0); WHITE BLOOD COUNT (AUTO) 8.5 K/uL (4.8-10.8)
[2023-01-10 05:50] LABS: CLARITY/URINE CLOUDY (CLEAR)
[2023-01-10 05:51] LABS: BACTERIA,URINE MANY /HPF (None Seen); RBC,URINE 0-3 /HPF (0-3); WBC,URINE 80-100 /HPF (0-3); YEAST,URINE Few /HPF (None Seen)
[2023-01-10 06:54] LABS: ALBUMIN 3.2 g/dL (3.4-4.8); CALCIUM 9.9 mg/dL (8.4-11.0); CREATININE 1.95 mg/dL (0.55-1.30); TOTAL BILIRUBIN 0.3 mg/dL (0.0-1.0)
[2023-01-10] MEDS: NACL 0.9% 1,000 ML IV SCH (08:00)
[2023-01-10 08:36] VITALS: BP_SYST 159; PULSE 93; RESP 16; TEMP 98; O2SAT 98
[2023-01-10] MEDS ORDERED: OMEPRAZOLE Non-Formulary 20 MG CAPSULE.DR PO SCH (09:00)
[2023-01-10] MEDS ORDERED: DULoxetine HCL 30 MG CAPSULE.DR (CYMBALTA) PO SCH (09:00)
[2023-01-10] MEDS ORDERED: ASPIRIN 81 MG TABLET(ECOTRIN) PO SCH (09:00)
[2023-01-10] MEDS ORDERED: PANTOPRAZOLE SODIUM 40 MG TAB PO SCH (09:00)
[2023-01-10] MEDS ORDERED: METOPROLOL SUCCINATE 50 MG TAB.SR.24H (TOPROL XL) PO SCH (09:00)
[2023-01-10 14:25] VITALS: BP_SYST 154; PULSE 94; RESP 18; TEMP 97.6; O2SAT 94
[2023-01-10 15:33] VITALS: BP_SYST 146; PULSE 65; RESP 16; TEMP 97.3; O2SAT 61
== END 2023-01-10 16:30 | disposition home or self-care (01) | DRG 682 ==
LOC: SED 09:58 → STU 11:59 → SMU 01-10 13:42
PROVIDERS: ADMIT Family Medicine; ATTEND Family Medicine
DX: N17.9 Acute kidney failure, unspecified (principal); E11.00 Type 2 diabetes mellitus with hyperosmolarity without nonketotic hyperglycemic-hyperosmolar coma (NKHHC); E87.20 Acidosis, unspecified; E86.0 Dehydration; E11.65 Type 2 diabetes mellitus with hyperglycemia; E11.22 Type 2 diabetes mellitus with diabetic chronic kidney disease; D64.9 Anemia, unspecified; J45.909 Unspecified asthma, uncomplicated; M19.90 Unspecified osteoarthritis, unspecified site; M32.9 Systemic lupus erythematosus, unspecified; I48.91 Unspecified atrial fibrillation; I12.9 Hypertensive chronic kidney disease with stage 1 through stage 4 chronic kidney disease, or unspecified chronic kidney disease; N18.9 Chronic kidney disease, unspecified; Z79.4 Long term (current) use of insulin; Z91.014 Allergy to mammalian meats; Z88.1 Allergy status to other antibiotic agents; Z88.8 Allergy status to other drugs, medicaments and biological substances; Z91.040 Latex allergy status; Z91.013 Allergy to seafood; Z91.048 Other nonmedicinal substance allergy status; Z79.899 Other long term (current) drug therapy; Z79.82 Long term (current) use of aspirin
CPT/HCPCS: 36415; 71045; 80053; 81000; 82009; 82150; 83605; 83690; 83735; 85025; 87086; 93005; 99285; G0378; J1815; J7030

== ENCOUNTER 2023-04-09 17:43 | Inpatient (IN) | payer OTHER ==
[~2023-04-09] VITALS: Ht 165.1 cm; Wt 73.0 kg
[2023-04-09 17:49] VITALS: BP_SYST 102; PULSE 78; RESP 19; TEMP 98; O2SAT 98
[2023-04-09] MEDS ORDERED: NACL 0.9% 1,000 ML IV ONE ×2 (18:30→20:15)
[2023-04-09 19:18] LABS: BASOPHILS % (AUTO) 0.1 % (0.0-2.0); EOSINOPHILS % (AUTO) 0.1 % (0.0-4.0); HEMATOCRIT 37.7 % (36-48); HEMOGLOBIN 10.9 g/dL (12.0-16.0); LYMPHOCYTES # (AUTO) 0.9 K/uL (1.0-5.5); LYMPHOCYTES % (AUTO) 7.6 % (20.5-51.5); MEAN CORPUSCULAR HEMOGLOBIN 25 pg (27-31); MEAN CORPUSCULAR HGB CONC 29 % (32-36); MEAN CORPUSCULAR VOLUME 85 fL (79.0-98.0); MONOCYTES # (AUTO) 0.7 K/uL (0.0-1.0); MONOCYTES % (AUTO) 5.6 % (1.7-9.3); NEUTROPHILS # (AUTO) 10.4 K/uL (1.8-7.7); NEUTROPHILS % (AUTO) 86.6 % (40.0-70.0); PLATELET COUNT (AUTO) 286 K/uL (130-430); RED BLOOD CELL COUNT(AUTO) 4.41 MIL/uL (4.2-6.2); RED CELL DISTRIBUTION WIDTH 16.6 % (9.0-15.0); WHITE BLOOD COUNT (AUTO) 11.9 K/uL (4.8-10.8)
[2023-04-09 19:32] LABS: ALBUMIN 3.7 g/dL (3.4-4.8); CALCIUM 8.6 mg/dL (8.4-11.0); CREATININE 3.82 mg/dL (0.55-1.30); TOTAL BILIRUBIN 0.7 mg/dL (0.0-1.0); TOTAL PROTEIN, SERUM 7.3 g/dL (6.4-8.3)
[2023-04-09 20:06] LABS: POTASSIUM 6.2 mmol/L (3.5-5.1)
[2023-04-09] MEDS ORDERED: DEXTROSE 50% JECT 50 ML DISP.SYRIN IVP PRN ×3 (20:15→22:45)
[2023-04-09] MEDS ORDERED: SODIUM BICARBONATE 8.4% JECT 50 MEQ/50 ML SYRINGE IVP ONE (20:15)
[2023-04-09] MEDS ORDERED: CALCIUM GLUCONATE 1 GM in NS 100 ML IV ONE (20:15)
[2023-04-09] MEDS ORDERED: SODIUM POLYSTYRENE SULFONATE 15 GM/60 ML UDBTL PO ONE (20:15)
[2023-04-09] MEDS ORDERED: ALBUTEROL SULFATE 0.083% 2.5 MG/3 ML VIAL.NEB INH ONE (20:15)
[2023-04-09] MEDS ORDERED: INSULIN REGULAR, HUMAN 100 UNITS in NS 99 ML IV PRN ×6 (20:15→22:45)
[2023-04-09 20:41] LABS: BLOOD GAS PCO2 19.5 mmHg (35.0-45.0); BLOOD GAS PO2 109.9 mmHg (75.0-100.0)
[2023-04-09 20:42] LABS: ABG O2 SAT% ESTIMATE 96.7 % (94.0-100.0); BLOOD GAS BASE EXCESS -20.5 mmol/L (-3.0-3.0); BLOOD GAS HCO3 6.5 mmol/L (21.0-27.0)
[2023-04-09] MEDS ORDERED: CALCIUM GLUCONATE 1 GM/10 ML VIAL ONE (20:52)
[2023-04-09 21:04] LABS: PHOSPHORUS 7.8 mg/dL (2.7-4.5)
[2023-04-09] MEDS ORDERED: ALBUTEROL MDI INHALATION 8 GM INH INH SCH (22:00)
[2023-04-09] MEDS: NACL 0.9% 1,000 ML IV SCH (22:15)
[2023-04-09] MEDS ORDERED: INSULIN REGULAR, HUMAN 10 UNITS/0.1 ML, 3 ML VIAL ONE (22:35)
[2023-04-09] MEDS ORDERED: INSULIN REGULAR, HUMAN 100 UNITS in NS 99 ML IV ONE ×2 (23:00)
[2023-04-09 23:40] LABS: BILIRUBIN,URINE 1+ (NEGATIVE); BLOOD, URINE NEGATIVE (NEGATIVE); CLARITY/URINE SL CLOUDY (CLEAR); COLOR,URINE YELLOW (YELLOW); GLUCOSE,URINE 3+ (NEGATIVE); KETONES,URINE 1+ (NEGATIVE); NITRITE, URINE NEGATIVE (NEGATIVE); PH,URINE 5.5 (5.0-8.0); PROTEIN URINE 1+ (NEGATIVE); UROBILINOGEN,URINE 0.2 (0.2-1.0)
[2023-04-09 23:45] LABS: HEMATOCRIT 31.7 % (36-48); HEMOGLOBIN 9.6 g/dL (12.0-16.0); LYMPHOCYTES # (AUTO) 1.3 K/uL (1.0-5.5); LYMPHOCYTES % (AUTO) 9.5 % (20.5-51.5); MEAN CORPUSCULAR HEMOGLOBIN 25 pg (27-31); MEAN CORPUSCULAR HGB CONC 30 % (32-36); MEAN CORPUSCULAR VOLUME 81 fL (79.0-98.0); MONOCYTES # (AUTO) 0.9 K/uL (0.0-1.0); MONOCYTES % (AUTO) 6.8 % (1.7-9.3); NEUTROPHILS # (AUTO) 11.5 K/uL (1.8-7.7); NEUTROPHILS % (AUTO) 83.7 % (40.0-70.0); PLATELET COUNT (AUTO) 271 K/uL (130-430); RED CELL DISTRIBUTION WIDTH 16.1 % (9.0-15.0); WHITE BLOOD COUNT (AUTO) 13.7 K/uL (4.8-10.8)
[2023-04-09] MEDS ORDERED: ONDANSETRON HCL 4 MG/2 ML VIAL IVP PRN (23:45)
[2023-04-09 23:50] LABS: LEUKOCYTE ESTERASE ,URINE 1+ (NEGATIVE)
[2023-04-09 23:51] LABS: BACTERIA,URINE MANY /HPF (None Seen); WBC,URINE 50-80 /HPF (0-3)
[2023-04-09 23:56] LABS: ALBUMIN 3.1 g/dL (3.4-4.8); CALCIUM 7.9 mg/dL (8.4-11.0); CREATININE 3.75 mg/dL (0.55-1.30); POTASSIUM 4.5 mmol/L (3.5-5.1); TOTAL BILIRUBIN 0.5 mg/dL (0.0-1.0); TOTAL PROTEIN, SERUM 6.2 g/dL (6.4-8.3)
[2023-04-10] VITALS (19 sets, daily range): BP systolic 97–156; PULSE 77–98; RESP 10–25; TEMP 97.7–98.2; O2SAT 94–99
[2023-04-10] MEDS: CIPROFLOXACIN LACT 400 MG/D5W 200 ML IV SCH ×2 (01:16→09:19)
[2023-04-10 03:42] LABS: HEMATOCRIT 32.6 % (36-48); HEMOGLOBIN 9.5 g/dL (12.0-16.0); LYMPHOCYTES # (AUTO) 1.1 K/uL (1.0-5.5); MEAN CORPUSCULAR HEMOGLOBIN 24 pg (27-31); MEAN CORPUSCULAR HGB CONC 29 % (32-36); MEAN CORPUSCULAR VOLUME 83 fL (79.0-98.0); MONOCYTES # (AUTO) 1.1 K/uL (0.0-1.0); MONOCYTES % (AUTO) 7.8 % (1.7-9.3); NEUTROPHILS % (AUTO) 84.2 % (40.0-70.0); PLATELET COUNT (AUTO) 281 K/uL (130-430); RED BLOOD CELL COUNT(AUTO) 3.93 MIL/uL (4.2-6.2); RED CELL DISTRIBUTION WIDTH 16.4 % (9.0-15.0); WHITE BLOOD COUNT (AUTO) 14.2 K/uL (4.8-10.8)
[2023-04-10 04:06] LABS: CALCIUM 7.6 mg/dL (8.4-11.0); CREATININE 3.97 mg/dL (0.55-1.30); TOTAL BILIRUBIN 0.5 mg/dL (0.0-1.0); TOTAL PROTEIN, SERUM 6.1 g/dL (6.4-8.3)
[2023-04-10] MEDS ORDERED: INSULIN REGULAR, HUMAN 100 UNITS in NS 99 ML IV PRN ×2 (05:15)
[2023-04-10 05:49] LABS: CALCIUM 7.6 mg/dL (8.4-11.0); CREATININE 4.09 mg/dL (0.55-1.30); POTASSIUM 5.2 mmol/L (3.5-5.1)
[2023-04-10] MEDS: NACL 0.9% 1,000 ML IV SCH ×4 (06:25→21:46)
[2023-04-10] MEDS ORDERED: DEXTROSE 50% JECT 50 ML DISP.SYRIN IVP PRN (07:30)
[2023-04-10 08:01] LABS: PHOSPHORUS 6.2 mg/dL (2.7-4.5)
[2023-04-10] MEDS ORDERED: ALBUTEROL SULFATE 0.083% 2.5 MG/3 ML VIAL.NEB INH PRN (08:15)
[2023-04-10] MEDS ORDERED: OMEPRAZOLE Non-Formulary 20 MG CAPSULE.DR PO SCH (09:00)
[2023-04-10] MEDS: METOPROLOL SUCCINATE 50 MG TAB.SR.24H (TOPROL XL) PO SCH ×2 (09:00→09:22)
[2023-04-10] MEDS: ENOXAPARIN SODIUM 30 MG/0.3 ML SYRINGE SUBCUT SCH (09:19)
[2023-04-10] MEDS: ASPIRIN 81 MG TABLET(ECOTRIN) PO SCH (09:23)
[2023-04-10] MEDS: PANTOPRAZOLE SODIUM 40 MG TAB PO SCH (09:23)
[2023-04-10] MEDS: DULoxetine HCL 30 MG CAPSULE.DR (CYMBALTA) PO SCH (09:23)
[2023-04-10] MEDS ORDERED: cefTRIAXone 1 GM in D5W 50 ML IV SCH (10:00)
[2023-04-10 10:49] LABS: ABG O2 SAT% ESTIMATE 96.9 % (94.0-100.0); BLOOD GAS PCO2 31.9 mmHg (35.0-45.0); BLOOD GAS PO2 91.1 mmHg (75.0-100.0)
[2023-04-10 10:59] LABS: ALLEN'S TEST POSITIVE (P)
[2023-04-10] MEDS: CEFEPIME 2 GM in D5W 100 ML IV SCH (11:19)
[2023-04-10] MEDS ORDERED: NS 500 ML IV ONE (12:15)
[2023-04-10 13:19] LABS: CREATININE 3.87 mg/dL (0.55-1.30); POTASSIUM 3.8 mmol/L (3.5-5.1)
[2023-04-10] MEDS: metroNIDAZOLE 500 mg/NS 100 ML IV SCH ×2 (14:04→21:47)
[2023-04-10] MEDS: INSULIN REGULAR, HUMAN 100 UNITS in NS 99 ML IV PRN ×6 (15:42→23:23)
[2023-04-10] MEDS ORDERED: POTASSIUM CHLORIDE 30 MEQ in NS 250 ML IV PRN ×2 (16:45→16:59)
[2023-04-10 18:10] LABS: CALCIUM 8.1 mg/dL (8.4-11.0); CREATININE 3.22 mg/dL (0.55-1.30); POTASSIUM 3.7 mmol/L (3.5-5.1)
[2023-04-10] MEDS: PRAMIPEXOLE DI-HCL 0.25 MG TABLET PO SCH (20:41)
[2023-04-10] MEDS: ATORVASTATIN 20 MG TABLET PO SCH (20:42)
[2023-04-10] MEDS ORDERED: ROSUVASTATIN CALCIUM 5 MG/TAB (CRESTOR) PO SCH (21:00)
[2023-04-10 21:19] LABS: CREATININE 3.27 mg/dL (0.55-1.30); PHOSPHORUS 2.5 mg/dL (2.7-4.5); POTASSIUM 3.6 mmol/L (3.5-5.1)
[2023-04-10 21:21] LABS: INR 0.9 (0.8-1.2); PROTHROMBIN TIME 9.4 SECS (9.5-12.5)
[2023-04-11] VITALS (25 sets, daily range): BP systolic 115–160; PULSE 71–97; RESP 10–18; TEMP 97.6–98.4; O2SAT 94–99
[2023-04-11 01:41] LABS: CALCIUM 8.1 mg/dL (8.4-11.0); CREATININE 2.99 mg/dL (0.55-1.30); POTASSIUM 3.4 mmol/L (3.5-5.1)
[2023-04-11] MEDS: NACL 0.9% 1,000 ML IV SCH ×3 (03:45→19:04)
[2023-04-11 05:23] LABS: BASOPHILS % (AUTO) 0.1 % (0.0-2.0); HEMATOCRIT 30.6 % (36-48); HEMOGLOBIN 9.7 g/dL (12.0-16.0); LYMPHOCYTES # (AUTO) 2.2 K/uL (1.0-5.5); LYMPHOCYTES % (AUTO) 19.4 % (20.5-51.5); MEAN CORPUSCULAR HEMOGLOBIN 25 pg (27-31); MEAN CORPUSCULAR HGB CONC 32 % (32-36); MEAN CORPUSCULAR VOLUME 78 fL (79.0-98.0); MONOCYTES % (AUTO) 8.9 % (1.7-9.3); NEUTROPHILS % (AUTO) 71.6 % (40.0-70.0); PLATELET COUNT (AUTO) 238 K/uL (130-430); RED BLOOD CELL COUNT(AUTO) 3.95 MIL/uL (4.2-6.2); RED CELL DISTRIBUTION WIDTH 15.7 % (9.0-15.0); WHITE BLOOD COUNT (AUTO) 11.2 K/uL (4.8-10.8)
[2023-04-11] MEDS: metroNIDAZOLE 500 mg/NS 100 ML IV SCH ×3 (05:54→21:19)
[2023-04-11 06:19] LABS: CREATININE 2.83 mg/dL (0.55-1.30); POTASSIUM 3.3 mmol/L (3.5-5.1)
[2023-04-11] MEDS ORDERED: INSULIN LISPRO SLIDING SCALE 100 UNITS/ML, 3 ML VIAL (humaLOG) SUBCUT PRN (08:00)
[2023-04-11] MEDS ORDERED: DEXTROSE 50%-WATER 50 ML DISP.SYRIN IVP PRN (08:15)
[2023-04-11] MEDS ORDERED: GLUCOSE (DEXTROSE) ORAL GEL -Adults PO PRN (08:15)
[2023-04-11] MEDS ORDERED: D5W 1,000 ML IV PRN (08:15)
[2023-04-11 08:59] LABS: CREATININE 2.66 mg/dL (0.55-1.30); POTASSIUM 3.4 mmol/L (3.5-5.1)
[2023-04-11] MEDS ORDERED: INSULIN GLARGINE 100 UNITS/ML, 10 ML VIAL SUBCUT SCH (09:00)
[2023-04-11] MEDS: METOPROLOL SUCCINATE 50 MG TAB.SR.24H (TOPROL XL) PO SCH (09:33)
[2023-04-11] MEDS: PANTOPRAZOLE SODIUM 40 MG TAB PO SCH (09:33)
[2023-04-11] MEDS: DULoxetine HCL 30 MG CAPSULE.DR (CYMBALTA) PO SCH (09:33)
[2023-04-11] MEDS: ASPIRIN 81 MG TABLET(ECOTRIN) PO SCH (09:33)
[2023-04-11] MEDS: ENOXAPARIN SODIUM 30 MG/0.3 ML SYRINGE SUBCUT SCH (09:33)
[2023-04-11 12:03] LABS: CREATININE 2.62 mg/dL (0.55-1.30)
[2023-04-11] MEDS: CEFEPIME 2 GM in D5W 100 ML IV SCH (12:06)
[2023-04-11] MEDS ORDERED: INSULIN REGULAR, HUMAN 100 UNITS in NS 99 ML IV PRN ×4 (14:15)
[2023-04-11] MEDS ORDERED: DEXTROSE 50% JECT 50 ML DISP.SYRIN IVP PRN (14:15)
[2023-04-11] MEDS ORDERED: INSULIN REGULAR, HUMAN 100 UNITS/ML, 3 ML VIAL IV ONE (14:30)
[2023-04-11 18:00] LABS: CREATININE 2.3 mg/dL (0.55-1.30); POTASSIUM 3.2 mmol/L (3.5-5.1)
[2023-04-11] MEDS: ATORVASTATIN 20 MG TABLET PO SCH (20:32)
[2023-04-11] MEDS: PRAMIPEXOLE DI-HCL 0.25 MG TABLET PO SCH (20:32)
[2023-04-11 21:47] LABS: CALCIUM 9.3 mg/dL (8.4-11.0); CREATININE 2.15 mg/dL (0.55-1.30); POTASSIUM 3.5 mmol/L (3.5-5.1)
[2023-04-12] VITALS (27 sets, daily range): BP systolic 130–191; PULSE 72–97; RESP 11–20; TEMP 97.7–98.2; O2SAT 95–98
[2023-04-12 03:31] LABS: BASOPHILS % (AUTO) 0.2 % (0.0-2.0); HEMATOCRIT 30.6 % (36-48); HEMOGLOBIN 9.9 g/dL (12.0-16.0); LYMPHOCYTES # (AUTO) 1.9 K/uL (1.0-5.5); LYMPHOCYTES % (AUTO) 24.6 % (20.5-51.5); MEAN CORPUSCULAR HEMOGLOBIN 25 pg (27-31); MEAN CORPUSCULAR HGB CONC 32 % (32-36); MEAN CORPUSCULAR VOLUME 77 fL (79.0-98.0); MONOCYTES # (AUTO) 0.7 K/uL (0.0-1.0); MONOCYTES % (AUTO) 9.7 % (1.7-9.3); NEUTROPHILS # (AUTO) 4.9 K/uL (1.8-7.7); NEUTROPHILS % (AUTO) 65.5 % (40.0-70.0); PLATELET COUNT (AUTO) 217 K/uL (130-430); RED BLOOD CELL COUNT(AUTO) 3.95 MIL/uL (4.2-6.2); WHITE BLOOD COUNT (AUTO) 7.5 K/uL (4.8-10.8)
[2023-04-12 04:07] LABS: CALCIUM 9.1 mg/dL (8.4-11.0); CREATININE 1.74 mg/dL (0.55-1.30); POTASSIUM 3.1 mmol/L (3.5-5.1)
[2023-04-12] MEDS: metroNIDAZOLE 500 mg/NS 100 ML IV SCH ×3 (05:32→21:45)
[2023-04-12] MEDS: NACL 0.9% 1,000 ML IV SCH ×2 (05:37→14:20)
[2023-04-12] MEDS: ASPIRIN 81 MG TABLET(ECOTRIN) PO SCH (08:15)
[2023-04-12] MEDS: PANTOPRAZOLE SODIUM 40 MG TAB PO SCH (08:15)
[2023-04-12] MEDS: ENOXAPARIN SODIUM 30 MG/0.3 ML SYRINGE SUBCUT SCH (08:15)
[2023-04-12] MEDS: METOPROLOL SUCCINATE 50 MG TAB.SR.24H (TOPROL XL) PO SCH (08:16)
[2023-04-12] MEDS: DULoxetine HCL 30 MG CAPSULE.DR (CYMBALTA) PO SCH (08:16)
[2023-04-12] MEDS: INSULIN GLARGINE 100 UNITS/ML, 10 ML VIAL SUBCUT SCH ×2 (09:27→20:58)
[2023-04-12] MEDS: CEFEPIME 2 GM in D5W 100 ML IV SCH (11:31)
[2023-04-12] MEDS: INSULIN Lispro 100 UNITS/ML, 3 ML VIAL (humaLOG) SUBCUT SCH ×2 (12:07→17:18)
[2023-04-12] MEDS: INSULIN LISPRO SLIDING SCALE 100 UNITS/ML, 3 ML VIAL (humaLOG) SUBCUT PRN ×2 (17:20→21:03)
[2023-04-12] MEDS: ATORVASTATIN 20 MG TABLET PO SCH (20:45)
[2023-04-12] MEDS: PRAMIPEXOLE DI-HCL 0.25 MG TABLET PO SCH (20:45)
[2023-04-13] VITALS (16 sets, daily range): BP systolic 135–160; PULSE 86–98; RESP 12–20; TEMP 97.2–99.1; O2SAT 94–100
[2023-04-13] MEDS: NACL 0.9% 1,000 ML IV SCH ×2 (03:39→19:03)
[2023-04-13] MEDS: metroNIDAZOLE 500 mg/NS 100 ML IV SCH ×3 (05:18→21:30)
[2023-04-13 06:33] LABS: BASOPHILS % (AUTO) 0.5 % (0.0-2.0); HEMATOCRIT 32.4 % (36-48); HEMOGLOBIN 10.3 g/dL (12.0-16.0); MEAN CORPUSCULAR HEMOGLOBIN 25 pg (27-31); MEAN CORPUSCULAR HGB CONC 32 % (32-36); MEAN CORPUSCULAR VOLUME 77 fL (79.0-98.0); MONOCYTES # (AUTO) 0.7 K/uL (0.0-1.0); MONOCYTES % (AUTO) 10.5 % (1.7-9.3); NEUTROPHILS # (AUTO) 4.1 K/uL (1.8-7.7); PLATELET COUNT (AUTO) 193 K/uL (130-430); RED BLOOD CELL COUNT(AUTO) 4.18 MIL/uL (4.2-6.2); RED CELL DISTRIBUTION WIDTH 16.1 % (9.0-15.0); WHITE BLOOD COUNT (AUTO) 6.8 K/uL (4.8-10.8)
[2023-04-13 06:44] LABS: ERYTHROCYTE SEDIMENTATION RATE 35 MM/HR (0-20)
[2023-04-13 07:04] LABS: CALCIUM 9.4 mg/dL (8.4-11.0); CREATININE 1.23 mg/dL (0.55-1.30); POTASSIUM 3.2 mmol/L (3.5-5.1)
[2023-04-13] MEDS: INSULIN GLARGINE 100 UNITS/ML, 10 ML VIAL SUBCUT SCH ×2 (09:04→21:26)
[2023-04-13] MEDS: INSULIN Lispro 100 UNITS/ML, 3 ML VIAL (humaLOG) SUBCUT SCH ×3 (09:07→16:49)
[2023-04-13] MEDS: ENOXAPARIN SODIUM 30 MG/0.3 ML SYRINGE SUBCUT SCH (09:14)
[2023-04-13] MEDS: ASPIRIN 81 MG TABLET(ECOTRIN) PO SCH (09:15)
[2023-04-13] MEDS: METOPROLOL SUCCINATE 50 MG TAB.SR.24H (TOPROL XL) PO SCH (09:15)
[2023-04-13] MEDS: DULoxetine HCL 30 MG CAPSULE.DR (CYMBALTA) PO SCH (09:15)
[2023-04-13] MEDS: PANTOPRAZOLE SODIUM 40 MG TAB PO SCH (09:15)
[2023-04-13] MEDS: INSULIN LISPRO SLIDING SCALE 100 UNITS/ML, 3 ML VIAL (humaLOG) SUBCUT PRN ×3 (12:42→21:27)
[2023-04-13] MEDS ORDERED: POTASSIUM CHLORIDE 20 MEQ TAB.PRT.SR PO ONE (14:30)
[2023-04-13] MEDS: PRAMIPEXOLE DI-HCL 0.25 MG TABLET PO SCH (21:20)
[2023-04-13] MEDS: ATORVASTATIN 20 MG TABLET PO SCH (21:20)
[2023-04-14 00:37] VITALS: BP_SYST 151; PULSE 88; RESP 17; TEMP 97.1; O2SAT 99
[2023-04-14] MEDS: metroNIDAZOLE 500 mg/NS 100 ML IV SCH ×3 (06:07→21:54)
[2023-04-14] MEDS: NACL 0.9% 1,000 ML IV SCH (06:11)
[2023-04-14] MEDS: INSULIN Lispro 100 UNITS/ML, 3 ML VIAL (humaLOG) SUBCUT SCH ×3 (07:07→17:26)
[2023-04-14 08:00] VITALS: BP_SYST 135; PULSE 90; RESP 16; TEMP 98.2; O2SAT 98
[2023-04-14] MEDS: ASPIRIN 81 MG TABLET(ECOTRIN) PO SCH (08:38)
[2023-04-14] MEDS: METOPROLOL SUCCINATE 50 MG TAB.SR.24H (TOPROL XL) PO SCH (08:38)
[2023-04-14] MEDS: DULoxetine HCL 30 MG CAPSULE.DR (CYMBALTA) PO SCH (08:38)
[2023-04-14] MEDS: ENOXAPARIN SODIUM 30 MG/0.3 ML SYRINGE SUBCUT SCH (08:39)
[2023-04-14] MEDS: PANTOPRAZOLE SODIUM 40 MG TAB PO SCH (08:39)
[2023-04-14] MEDS: INSULIN GLARGINE 100 UNITS/ML, 10 ML VIAL SUBCUT SCH ×2 (08:40→21:52)
[2023-04-14] MEDS: INSULIN LISPRO SLIDING SCALE 100 UNITS/ML, 3 ML VIAL (humaLOG) SUBCUT PRN (12:12)
[2023-04-14 16:00] VITALS: BP_SYST 144; PULSE 83; RESP 18; TEMP 97.9; O2SAT 98
[2023-04-14] MEDS: PRAMIPEXOLE DI-HCL 0.25 MG TABLET PO SCH (21:42)
[2023-04-14] MEDS: ATORVASTATIN 20 MG TABLET PO SCH (21:42)
[2023-04-15] VITALS (7 sets, daily range): BP systolic 145–165; PULSE 74–89; RESP 16–18; TEMP 96.5–98.8; O2SAT 96–100
[2023-04-15] MEDS: NACL 0.9% 1,000 ML IV SCH ×2 (02:07→17:44)
[2023-04-15 05:23] LABS: BASOPHILS % (AUTO) 0.1 % (0.0-2.0); HEMATOCRIT 27.4 % (36-48); HEMOGLOBIN 8.7 g/dL (12.0-16.0); LYMPHOCYTES # (AUTO) 1.5 K/uL (1.0-5.5); LYMPHOCYTES % (AUTO) 20.7 % (20.5-51.5); MEAN CORPUSCULAR HEMOGLOBIN 25 pg (27-31); MEAN CORPUSCULAR HGB CONC 32 % (32-36); MEAN CORPUSCULAR VOLUME 78 fL (79.0-98.0); MONOCYTES # (AUTO) 0.7 K/uL (0.0-1.0); MONOCYTES % (AUTO) 9.9 % (1.7-9.3); NEUTROPHILS # (AUTO) 5.1 K/uL (1.8-7.7); NEUTROPHILS % (AUTO) 69.3 % (40.0-70.0); PLATELET COUNT (AUTO) 185 K/uL (130-430); RED BLOOD CELL COUNT(AUTO) 3.53 MIL/uL (4.2-6.2); RED CELL DISTRIBUTION WIDTH 15.8 % (9.0-15.0); WHITE BLOOD COUNT (AUTO) 7.4 K/uL (4.8-10.8)
[2023-04-15 05:52] LABS: CALCIUM 8.9 mg/dL (8.4-11.0); CREATININE 1.17 mg/dL (0.55-1.30); POTASSIUM 3.6 mmol/L (3.5-5.1)
[2023-04-15] MEDS: metroNIDAZOLE 500 mg/NS 100 ML IV SCH ×3 (05:52→21:51)
[2023-04-15] MEDS: INSULIN Lispro 100 UNITS/ML, 3 ML VIAL (humaLOG) SUBCUT SCH ×3 (05:59→17:46)
[2023-04-15] MEDS: ASPIRIN 81 MG TABLET(ECOTRIN) PO SCH (08:44)
[2023-04-15] MEDS: DULoxetine HCL 30 MG CAPSULE.DR (CYMBALTA) PO SCH (08:44)
[2023-04-15] MEDS: ENOXAPARIN SODIUM 30 MG/0.3 ML SYRINGE SUBCUT SCH (08:44)
[2023-04-15] MEDS: METOPROLOL SUCCINATE 50 MG TAB.SR.24H (TOPROL XL) PO SCH (08:45)
[2023-04-15] MEDS: PANTOPRAZOLE SODIUM 40 MG TAB PO SCH (08:45)
[2023-04-15] MEDS: INSULIN GLARGINE 100 UNITS/ML, 10 ML VIAL SUBCUT SCH ×2 (08:53→21:00)
[2023-04-15] MEDS ORDERED: CHOLECALCIFEROL (VITAMIN D3) 5,000 UNIT TABLET PO ONE (12:00)
[2023-04-15] MEDS ORDERED: amLODIPine BESYLATE 10 MG TABLET PO ONE (12:15)
[2023-04-15] MEDS: INSULIN LISPRO SLIDING SCALE 100 UNITS/ML, 3 ML VIAL (humaLOG) SUBCUT PRN (12:16)
[2023-04-15] MEDS: PRAMIPEXOLE DI-HCL 0.25 MG TABLET PO SCH (21:09)
[2023-04-15] MEDS: ATORVASTATIN 20 MG TABLET PO SCH (21:09)
[2023-04-16] VITALS (7 sets, daily range): BP systolic 147–158; PULSE 82–93; RESP 16–18; TEMP 98.1–99.2; O2SAT 97–99
[2023-04-16] MEDS: metroNIDAZOLE 500 mg/NS 100 ML IV SCH ×2 (06:18→14:54)
[2023-04-16] MEDS: INSULIN Lispro 100 UNITS/ML, 3 ML VIAL (humaLOG) SUBCUT SCH ×2 (07:00→11:30)
[2023-04-16] MEDS: NACL 0.9% 1,000 ML IV SCH (08:39)
[2023-04-16] MEDS ORDERED: amLODIPine BESYLATE 10 MG TABLET PO SCH (09:00)
[2023-04-16] MEDS ORDERED: CHOLECALCIFEROL (VITAMIN D3) 5,000 UNIT TABLET PO SCH (09:00)
[2023-04-16] MEDS: DULoxetine HCL 30 MG CAPSULE.DR (CYMBALTA) PO SCH (09:21)
[2023-04-16] MEDS: PANTOPRAZOLE SODIUM 40 MG TAB PO SCH (09:22)
[2023-04-16] MEDS: ASPIRIN 81 MG TABLET(ECOTRIN) PO SCH (09:22)
[2023-04-16] MEDS: METOPROLOL SUCCINATE 50 MG TAB.SR.24H (TOPROL XL) PO SCH (09:22)
[2023-04-16] MEDS: ENOXAPARIN SODIUM 30 MG/0.3 ML SYRINGE SUBCUT SCH (09:23)
[2023-04-16] MEDS: INSULIN GLARGINE 100 UNITS/ML, 10 ML VIAL SUBCUT SCH (09:27)
== END 2023-04-16 19:17 | disposition home or self-care (01) | DRG 871 ==
LOC: SED 17:43 → SIC 22:01 → STU 04-13 13:08 → SMU 04-14 18:27
PROVIDERS: ADMIT Internal Medicine; ATTEND Family Medicine
PROC: 05HY33Z Insertion of Infusion Device into Upper Vein, Percutaneous Approach (ICD-10-PCS; principal; 2023-04-11)
PROC: B54MZZA Ultrasonography of Right Upper Extremity Veins, Guidance (ICD-10-PCS; 2023-04-11)
DX: A41.9 Sepsis, unspecified organism (principal); E11.10 Type 2 diabetes mellitus with ketoacidosis without coma; E87.1 Hypo-osmolality and hyponatremia; N39.0 Urinary tract infection, site not specified; N17.9 Acute kidney failure, unspecified; J44.9 Chronic obstructive pulmonary disease, unspecified; E87.6 Hypokalemia; E87.5 Hyperkalemia; E11.22 Type 2 diabetes mellitus with diabetic chronic kidney disease; I12.9 Hypertensive chronic kidney disease with stage 1 through stage 4 chronic kidney disease, or unspecified chronic kidney disease; E86.0 Dehydration; E83.42 Hypomagnesemia; N18.9 Chronic kidney disease, unspecified; D64.9 Anemia, unspecified; Z88.2 Allergy status to sulfonamides; Z88.8 Allergy status to other drugs, medicaments and biological substances; Z88.1 Allergy status to other antibiotic agents; Z91.041 Radiographic dye allergy status; Z91.040 Latex allergy status; Z88.0 Allergy status to penicillin; Z91.014 Allergy to mammalian meats; Z79.4 Long term (current) use of insulin; E55.9 Vitamin D deficiency, unspecified
CPT/HCPCS: 36415; 36600; 76770; 80048; 80053; 81000; 82009; 82306; 82803; 82962; 83605; 83735; 84100; 85025; 85610-TC; 85651-TC; 85730-TC; 87040; 87081; 87086; 87186-TC; 93005; 94640; 94760; 97110-GP; 97116-GP; 97530-GP; 99291; G0378; J0610; J0692; J0696; J0744; J1650; J1815; J3480; J3490; J7050; J7060

== ENCOUNTER 2023-06-07 16:19 | Inpatient (IN) | payer OTHER ==
[~2023-06-07] VITALS: Ht 165.1 cm; Wt 69.9 kg
[2023-06-07 16:30] VITALS: BP_SYST 133; PULSE 107; RESP 19; TEMP 98.2; O2SAT 99
[2023-06-07 18:42] LABS: BASOPHILS % (AUTO) 0.5 % (0.0-2.0); HEMATOCRIT 32.6 % (36-48); HEMOGLOBIN 10.2 g/dL (12.0-16.0); LYMPHOCYTES % (AUTO) 24.3 % (20.5-51.5); MEAN CORPUSCULAR HEMOGLOBIN 25 pg (27-31); MEAN CORPUSCULAR HGB CONC 31 % (32-36); MEAN CORPUSCULAR VOLUME 80 fL (79.0-98.0); MONOCYTES # (AUTO) 0.6 K/uL (0.0-1.0); MONOCYTES % (AUTO) 7.6 % (1.7-9.3); NEUTROPHILS # (AUTO) 5.6 K/uL (1.8-7.7); NEUTROPHILS % (AUTO) 67.6 % (40.0-70.0); PLATELET COUNT (AUTO) 277 K/uL (130-430); RED BLOOD CELL COUNT(AUTO) 4.05 MIL/uL (4.2-6.2); RED CELL DISTRIBUTION WIDTH 16.8 % (9.0-15.0); WHITE BLOOD COUNT (AUTO) 8.2 K/uL (4.8-10.8)
[2023-06-07 18:53] LABS: ANION GAP 8 (5-15); CALCIUM 9.7 mg/dL (8.4-11.0); CARBON DIOXIDE 26 mmol/L (23-29); CHLORIDE 96 mmol/L (98-107); GLUCOSE 207 mg/dL (74-106); POTASSIUM 4.3 mmol/L (3.5-5.1); SODIUM SERUM 130 mmol/L (136-145); UREA NITROGEN, BLOOD 40 mg/dL (8-21)
[2023-06-07 18:54] LABS: GFR AFRICAN AMERICAN 28 mL/min (>90); GFR NON AFRICAN-AMERICAN 23 mL/min (>90)
[2023-06-07 19:23] LABS: BILIRUBIN,URINE 2+ (NEGATIVE); COLOR,URINE YELLOW (YELLOW); GLUCOSE,URINE 2+ (NEGATIVE); KETONES,URINE 1+ (NEGATIVE); LEUKOCYTE ESTERASE ,URINE NEGATIVE (NEGATIVE); NITRITE, URINE NEGATIVE (NEGATIVE); PH,URINE 5.5 (5.0-8.0); PROTEIN URINE 2+ (NEGATIVE); UROBILINOGEN,URINE 0.2 (0.2-1.0)
[2023-06-07 19:27] LABS: BLOOD, URINE TRACE (NEGATIVE)
[2023-06-07 19:28] LABS: CLARITY/URINE HAZY (CLEAR)
[2023-06-07] MEDS ORDERED: NACL 0.9% 1,000 ML IV ONE ×2 (20:15→21:00)
[2023-06-07 20:20] LABS: BACTERIA,URINE MANY /HPF (None Seen); RBC,URINE 0-3 /HPF (0-3)
[2023-06-07 20:21] LABS: MUCUS,URINE None Seen /LPF (None Seen)
[2023-06-07] MEDS ORDERED: INSU100V9 SQ (21:51)
[2023-06-07] MEDS ORDERED: HYDR-4039 PO (21:51)
[2023-06-07] MEDS ORDERED: NOR10 PO (21:51)
[2023-06-07] MEDS ORDERED: PRO40 PO (21:51)
[2023-06-07] MEDS ORDERED: LOSA1TAB40 PO (21:51)
[2023-06-07 22:20] VITALS: BP_SYST 144; PULSE 92; RESP 18; TEMP 98.9
[2023-06-07] MEDS: NACL 0.9% 1,000 ML IV SCH (22:55)
[2023-06-07 23:00] VITALS: O2SAT 100
[2023-06-07] MEDS ORDERED: INSULIN GLARGINE 100 UNITS/ML, 10 ML VIAL SUBCUT ONE (23:00)
[2023-06-08] MEDS: INSULIN REGULAR, HUMAN 100 UNITS/ML, 3 ML VIAL (humuLIN R) SUBCUT PRN ×3 (00:19→22:01)
[2023-06-08 05:26] VITALS: BP_SYST 133; PULSE 93; RESP 18
[2023-06-08 06:24] LABS: BASOPHILS % (AUTO) 0.7 % (0.0-2.0); HEMOGLOBIN 9.7 g/dL (12.0-16.0); LYMPHOCYTES # (AUTO) 1.7 K/uL (1.0-5.5); LYMPHOCYTES % (AUTO) 23.9 % (20.5-51.5); MEAN CORPUSCULAR HEMOGLOBIN 25 pg (27-31); MEAN CORPUSCULAR HGB CONC 31 % (32-36); MEAN CORPUSCULAR VOLUME 80 fL (79.0-98.0); MONOCYTES # (AUTO) 0.6 K/uL (0.0-1.0); NEUTROPHILS # (AUTO) 4.6 K/uL (1.8-7.7); NEUTROPHILS % (AUTO) 66.4 % (40.0-70.0); PLATELET COUNT (AUTO) 271 K/uL (130-430); RED BLOOD CELL COUNT(AUTO) 3.87 MIL/uL (4.2-6.2); RED CELL DISTRIBUTION WIDTH 16.7 % (9.0-15.0)
[2023-06-08 06:55] LABS: CALCIUM 10.3 mg/dL (8.4-11.0); CREATININE 2.12 mg/dL (0.55-1.30); POTASSIUM 3.7 mmol/L (3.5-5.1)
[2023-06-08 06:59] LABS: TOTAL IRON BIND. CAPACITY 270 ug/dL (250-450)
[2023-06-08 07:49] VITALS: BP_SYST 130; PULSE 110; RESP 18; TEMP 98.1; O2SAT 97
[2023-06-08] MEDS: hydrALAZINE HCL 25 MG TABLET PO SCH ×3 (08:07→21:47)
[2023-06-08] MEDS: PANTOPRAZOLE SODIUM 40 MG TAB PO SCH (08:08)
[2023-06-08] MEDS: amLODIPine BESYLATE 10 MG TABLET PO SCH (08:08)
[2023-06-08] MEDS: INSULIN GLARGINE 100 UNITS/ML, 10 ML VIAL SQ SCH (08:13)
[2023-06-08] MEDS: NACL 0.9% 1,000 ML IV SCH (12:09)
[2023-06-08 14:40] VITALS: BP_SYST 125; PULSE 94; RESP 18; TEMP 99.2; O2SAT 99
[2023-06-08 21:00] VITALS: BP_SYST 140; PULSE 102; RESP 20; TEMP 98.8; O2SAT 97
[2023-06-08] MEDS ORDERED: ENOXAPARIN SODIUM 30 MG/0.3 ML SYRINGE SUBCUT SCH (21:00)
[2023-06-08] MEDS ORDERED: ROSUVASTATIN CALCIUM 5 MG/TAB (CRESTOR) PO SCH (21:00)
[2023-06-09 00:04] VITALS: BP_SYST 127; PULSE 102; PULSE 110; RESP 17; TEMP 98.4; O2SAT 95
[2023-06-09 06:16] LABS: BASOPHILS # (AUTO) 0.1 K/uL (0.0-0.2); BASOPHILS % (AUTO) 1.1 % (0.0-2.0); HEMATOCRIT 29.6 % (36-48); HEMOGLOBIN 9.4 g/dL (12.0-16.0); LYMPHOCYTES # (AUTO) 2.1 K/uL (1.0-5.5); LYMPHOCYTES % (AUTO) 35.6 % (20.5-51.5); MEAN CORPUSCULAR HEMOGLOBIN 26 pg (27-31); MEAN CORPUSCULAR HGB CONC 32 % (32-36); MEAN CORPUSCULAR VOLUME 80 fL (79.0-98.0); MONOCYTES # (AUTO) 0.7 K/uL (0.0-1.0); MONOCYTES % (AUTO) 11.2 % (1.7-9.3); NEUTROPHILS % (AUTO) 52.1 % (40.0-70.0); PLATELET COUNT (AUTO) 254 K/uL (130-430); RED BLOOD CELL COUNT(AUTO) 3.69 MIL/uL (4.2-6.2); WHITE BLOOD COUNT (AUTO) 5.8 K/uL (4.8-10.8)
[2023-06-09 06:32] LABS: CALCIUM 9.8 mg/dL (8.4-11.0); CREATININE 1.89 mg/dL (0.55-1.30); POTASSIUM 3.7 mmol/L (3.5-5.1)
[2023-06-09] MEDS: NACL 0.9% 1,000 ML IV SCH (06:39)
[2023-06-09 08:14] VITALS: BP_SYST 147; PULSE 91; RESP 17; TEMP 97; O2SAT 97
[2023-06-09] MEDS ORDERED: ATORVASTATIN 20 MG TABLET PO SCH (09:00)
[2023-06-09] MEDS: hydrALAZINE HCL 25 MG TABLET PO SCH (09:58)
[2023-06-09] MEDS: PANTOPRAZOLE SODIUM 40 MG TAB PO SCH (09:59)
[2023-06-09] MEDS: amLODIPine BESYLATE 10 MG TABLET PO SCH (10:00)
[2023-06-09] MEDS: INSULIN GLARGINE 100 UNITS/ML, 10 ML VIAL SQ SCH (10:17)
[2023-06-09 10:30] VITALS: O2SAT 97
[2023-06-09] MEDS: INSULIN REGULAR, HUMAN 100 UNITS/ML, 3 ML VIAL (humuLIN R) SUBCUT PRN (12:13)
[2023-06-09 13:30] VITALS: BP_SYST 129; PULSE 100; RESP 16; TEMP 98; O2SAT 99
[2023-06-09 14:20] VITALS: BP_SYST 129; PULSE 100; RESP 16; TEMP 98; O2SAT 99
== END 2023-06-09 15:15 | disposition home or self-care (01) | DRG 640 ==
LOC: SED 16:19 → STU 20:09
PROVIDERS: ADMIT Family Medicine; ATTEND Family Medicine
DX: E86.0 Dehydration (principal); N17.0 Acute kidney failure with tubular necrosis; E87.1 Hypo-osmolality and hyponatremia; I12.9 Hypertensive chronic kidney disease with stage 1 through stage 4 chronic kidney disease, or unspecified chronic kidney disease; E11.22 Type 2 diabetes mellitus with diabetic chronic kidney disease; N18.9 Chronic kidney disease, unspecified; D64.9 Anemia, unspecified; Z91.014 Allergy to mammalian meats; Z79.4 Long term (current) use of insulin; Z88.8 Allergy status to other drugs, medicaments and biological substances; Z88.1 Allergy status to other antibiotic agents; Z88.0 Allergy status to penicillin; Z91.013 Allergy to seafood; Z79.899 Other long term (current) drug therapy
CPT/HCPCS: 36415; 71045; 80048; 81000; 81001; 81015; 82607; 82728; 82746; 82962; 83540; 83550; 83735; 83880; 84484; 85025; 87086; 93005; 96360; 97110-GP; 97116-GP; 97530-GP; 99285; G0378; J1650; J1815

== ENCOUNTER 2023-06-21 14:51 | Inpatient (IN) | payer OTHER ==
[~2023-06-21] VITALS: Ht 165.1 cm; Wt 71.2 kg
[~2023-06-21 14:51] MED LIST changes: -ALBU8.5H8 INH; -ASPI-1393 PO; -DULO60CA42 PO; +HYDR-4039 PO; -INSU100V SQ; +INSU100V9 SQ; +NOR10 PO; -OMEP20CA15 PO; -PRAM0.253 PO; +PRO40 PO; -TOPXL100 PO
[2023-06-21 14:55] VITALS: BP_SYST 130; PULSE 120; RESP 18; TEMP 98.7; O2SAT 99
[2023-06-21] MEDS ORDERED: NACL 0.9% 1,000 ML IV ONE ×2 (15:00→15:15)
[2023-06-21 15:44] LABS: HEMOGLOBIN 8.9 g/dL (12.0-16.0); LYMPHOCYTES # (AUTO) 0.3 K/uL (1.0-5.5); MEAN CORPUSCULAR HEMOGLOBIN 25 pg (27-31); MONOCYTES # (AUTO) 0.3 K/uL (0.0-1.0); MONOCYTES % (AUTO) 3.3 % (1.7-9.3); RED BLOOD CELL COUNT(AUTO) 3.51 MIL/uL (4.2-6.2); RED CELL DISTRIBUTION WIDTH 18.1 % (9.0-15.0)
[2023-06-21 15:58] LABS: BASOPHILS # (AUTO) 0.2 K/uL (0.0-0.2); HEMATOCRIT 32.3 % (36-48); LYMPHOCYTES % (AUTO) 3.7 % (20.5-51.5); MEAN CORPUSCULAR HGB CONC 28 % (32-36); MEAN CORPUSCULAR VOLUME 92 fL (79.0-98.0); NEUTROPHILS # (AUTO) 8.6 K/uL (1.8-7.7); PLATELET COUNT (AUTO) 313 K/uL (130-430); WHITE BLOOD COUNT (AUTO) 9.5 K/uL (4.8-10.8)
[2023-06-21 16:03] LABS: ALANINE AMINOTRANSFERASE 20 U/L (12-78); ALBUMIN 3.5 g/dL (3.4-4.8); ANION GAP 33 (5-15); ASPARTATE AMINOTRANSFERASE 21 U/L (10-37); BILIRUBIN,DIRECT 0.2 mg/dL (0.0-0.3); CALCIUM 9.4 mg/dL (8.4-11.0); CHLORIDE 91 mmol/L (98-107); CREATININE 2.65 mg/dL (0.55-1.30); SODIUM SERUM 129 mmol/L (136-145); TOTAL BILIRUBIN 0.5 mg/dL (0.0-1.0); TOTAL PROTEIN, SERUM 7.1 g/dL (6.4-8.3); UREA NITROGEN, BLOOD 34 mg/dL (8-21)
[2023-06-21 16:33] LABS: GFR AFRICAN AMERICAN 23 mL/min (>90); GFR NON AFRICAN-AMERICAN 19 mL/min (>90)
[2023-06-21 16:34] LABS: CARBON DIOXIDE 5 mmol/L (23-29); GLUCOSE 903 mg/dL (74-106); POTASSIUM 6.2 mmol/L (3.5-5.1)
[2023-06-21 16:45] LABS: ACETONE, SERUM SMALL (NEGATIVE)
[2023-06-21] MEDS ORDERED: INSULIN REGULAR, HUMAN 100 UNITS in NS 99 ML IV ONE ×2 (17:00)
[2023-06-21] MEDS ORDERED: DEXTROSE 50% JECT 25 ML (1/2 AMP) IVP PRN (17:00)
[2023-06-21] MEDS ORDERED: DEXTROSE 50% JECT 50 ML (1 AMP) IVP PRN (17:00)
[2023-06-21] MEDS ORDERED: 0.45% NACL 1,000 ML IV SCH (17:30)
[2023-06-21 17:36] LABS: ABG O2 SAT% ESTIMATE 95.8 % (94.0-100.0); BLOOD GAS BASE EXCESS -29.3 mmol/L (-3.0-3.0); BLOOD GAS PO2 128.5 mmHg (75.0-100.0)
[2023-06-21 17:37] LABS: BLOOD GAS PCO2 13.4 mmHg (35.0-45.0); BLOOD GAS PH 6.893 (7.350-7.450)
[2023-06-21 17:38] LABS: ALLEN'S TEST POSITIVE (P); BLOOD GAS HCO3 2.5 mmol/L (21.0-27.0)
[2023-06-21] MEDS ORDERED: INSULIN REGULAR, HUMAN 100 UNITS in NS 99 ML IV PRN ×4 (20:00→21:15)
[2023-06-21] MEDS ORDERED: DEXTROSE 50% JECT 50 ML DISP.SYRIN IVP PRN (20:00)
[2023-06-21 20:30] LABS: BILIRUBIN,URINE NEGATIVE (NEGATIVE); COLOR,URINE YELLOW (YELLOW); GLUCOSE,URINE 3+ (NEGATIVE); KETONES,URINE 3+ (NEGATIVE); LEUKOCYTE ESTERASE ,URINE NEGATIVE (NEGATIVE); NITRITE, URINE NEGATIVE (NEGATIVE); PH,URINE 5.5 (5.0-8.0); PROTEIN URINE 1+ (NEGATIVE); UROBILINOGEN,URINE 0.2 (0.2-1.0)
[2023-06-21 20:38] LABS: BLOOD, URINE TRACE (NEGATIVE)
[2023-06-21 20:39] LABS: CLARITY/URINE SLIGHTLY CLOUDY (CLEAR)
[2023-06-21 20:47] LABS: BACTERIA,URINE FEW /HPF (None Seen); WBC,URINE 0-3 /HPF (0-3)
[2023-06-21] MEDS: NACL 0.9% 1,000 ML IV SCH (21:19)
[2023-06-21] MEDS ORDERED: HEPARIN SODIUM,PORCINE 5,000 UNITS/ML VIAL SUBCUT SCH (22:00)
[2023-06-21] MEDS ORDERED: DIPHENHYDRAMINE INJ 50 MG/ML VIAL IM ONE (22:30)
[2023-06-22] VITALS (12 sets, daily range): BP systolic 128–155; PULSE 75–96; RESP 17–32; TEMP 97.3–98; O2SAT 97–100
[2023-06-22 00:56] LABS: CALCIUM 9.1 mg/dL (8.4-11.0); CREATININE 2.85 mg/dL (0.55-1.30); POTASSIUM 4.3 mmol/L (3.5-5.1)
[2023-06-22] MEDS: NACL 0.9% 1,000 ML IV SCH (02:19)
[2023-06-22 06:23] LABS: CALCIUM 8.3 mg/dL (8.4-11.0); CREATININE 2.49 mg/dL (0.55-1.30); POTASSIUM 4.1 mmol/L (3.5-5.1)
[2023-06-22 06:27] LABS: PHOSPHORUS 2.5 mg/dL (2.7-4.5)
[2023-06-22] MEDS ORDERED: D5/0.45 NS 1,000 ML IV SCH (07:45)
[2023-06-22] MEDS: 0.45% NACL 1,000 ML IV SCH ×2 (07:48→18:16)
[2023-06-22] MEDS ORDERED: INSULIN REGULAR, HUMAN 100 UNITS/ML, 3 ML VIAL (humuLIN R) SUBCUT PRN (08:15)
[2023-06-22] MEDS: PANTOPRAZOLE SODIUM 40 MG TAB PO SCH (10:21)
[2023-06-22 12:37] LABS: ALANINE AMINOTRANSFERASE 19 U/L (12-78); ANION GAP 17 (5-15); ASPARTATE AMINOTRANSFERASE 20 U/L (10-37); CALCIUM 8.5 mg/dL (8.4-11.0); CARBON DIOXIDE 17 mmol/L (23-29); CHLORIDE 105 mmol/L (98-107); CREATININE 2.35 mg/dL (0.55-1.30); GLUCOSE 383 mg/dL (74-106); PHOSPHORUS 3.2 mg/dL (2.7-4.5); POTASSIUM 4.8 mmol/L (3.5-5.1); SODIUM SERUM 139 mmol/L (136-145); TOTAL BILIRUBIN 0.3 mg/dL (0.0-1.0); TOTAL PROTEIN, SERUM 6.3 g/dL (6.4-8.3); UREA NITROGEN, BLOOD 29 mg/dL (8-21)
[2023-06-22 12:39] LABS: GFR AFRICAN AMERICAN 26 mL/min (>90); GFR NON AFRICAN-AMERICAN 22 mL/min (>90)
[2023-06-22] MEDS ORDERED: INSULIN REGULAR, HUMAN 100 UNITS in NS 99 ML IV PRN ×2 (12:45)
[2023-06-22 13:05] LABS: ACETONE, SERUM SMALL (NEGATIVE)
[2023-06-22] MEDS ORDERED: DEXTROSE 50% JECT 50 ML DISP.SYRIN IVP PRN (14:45)
[2023-06-22 15:25] LABS: BASOPHILS # (AUTO) 0.1 K/uL (0.0-0.2); BASOPHILS % (AUTO) 0.5 % (0.0-2.0); HEMATOCRIT 27.9 % (36-48); HEMOGLOBIN 8.7 g/dL (12.0-16.0); LYMPHOCYTES # (AUTO) 1.2 K/uL (1.0-5.5); LYMPHOCYTES % (AUTO) 10.6 % (20.5-51.5); MEAN CORPUSCULAR HEMOGLOBIN 26 pg (27-31); MEAN CORPUSCULAR HGB CONC 31 % (32-36); MEAN CORPUSCULAR VOLUME 82 fL (79.0-98.0); MONOCYTES # (AUTO) 0.7 K/uL (0.0-1.0); MONOCYTES % (AUTO) 5.9 % (1.7-9.3); NEUTROPHILS # (AUTO) 9.3 K/uL (1.8-7.7); PLATELET COUNT (AUTO) 257 K/uL (130-430); RED BLOOD CELL COUNT(AUTO) 3.42 MIL/uL (4.2-6.2); RED CELL DISTRIBUTION WIDTH 17.3 % (9.0-15.0); WHITE BLOOD COUNT (AUTO) 11.2 K/uL (4.8-10.8)
[2023-06-22 15:38] LABS: CALCIUM 8.7 mg/dL (8.4-11.0); CREATININE 2.46 mg/dL (0.55-1.30); POTASSIUM 4.1 mmol/L (3.5-5.1)
[2023-06-22] MEDS ORDERED: COMMUNICATION ORDER XX ONE (17:00)
[2023-06-22 20:02] LABS: CALCIUM 9.1 mg/dL (8.4-11.0); CREATININE 2.23 mg/dL (0.55-1.30)
[2023-06-22] MEDS: INSULIN REGULAR, HUMAN 100 UNITS in NS 99 ML IV PRN ×2 (21:55)
[2023-06-22] MEDS: hydrALAZINE HCL 25 MG TABLET PO SCH (22:00)
[2023-06-22] MEDS: ACETAMINOPHEN 325 MG TABLET PO PRN (23:44)
[2023-06-23] VITALS (24 sets, daily range): BP systolic 113–170; PULSE 84–101; RESP 14–22; TEMP 97.3–98.5; O2SAT 93–99
[2023-06-23] MEDS: INSULIN REGULAR, HUMAN 100 UNITS in NS 99 ML IV PRN ×8 (00:07→06:53)
[2023-06-23 01:19] LABS: CALCIUM 8.8 mg/dL (8.4-11.0); CREATININE 2.16 mg/dL (0.55-1.30); POTASSIUM 3.7 mmol/L (3.5-5.1)
[2023-06-23] MEDS: ACETAMINOPHEN 325 MG TABLET PO PRN (02:33)
[2023-06-23] MEDS: 0.45% NACL 1,000 ML IV SCH ×2 (04:30→14:00)
[2023-06-23 05:10] LABS: BASOPHILS % (AUTO) 0.4 % (0.0-2.0); HEMATOCRIT 24.1 % (36-48); HEMOGLOBIN 7.7 g/dL (12.0-16.0); LYMPHOCYTES # (AUTO) 1.9 K/uL (1.0-5.5); LYMPHOCYTES % (AUTO) 19.9 % (20.5-51.5); MEAN CORPUSCULAR HEMOGLOBIN 26 pg (27-31); MEAN CORPUSCULAR HGB CONC 32 % (32-36); MEAN CORPUSCULAR VOLUME 81 fL (79.0-98.0); MONOCYTES # (AUTO) 0.7 K/uL (0.0-1.0); MONOCYTES % (AUTO) 6.9 % (1.7-9.3); NEUTROPHILS # (AUTO) 7.1 K/uL (1.8-7.7); NEUTROPHILS % (AUTO) 72.8 % (40.0-70.0); PLATELET COUNT (AUTO) 230 K/uL (130-430); RED BLOOD CELL COUNT(AUTO) 2.98 MIL/uL (4.2-6.2); RED CELL DISTRIBUTION WIDTH 17.1 % (9.0-15.0); WHITE BLOOD COUNT (AUTO) 9.8 K/uL (4.8-10.8)
[2023-06-23 05:24] LABS: CALCIUM 8.6 mg/dL (8.4-11.0); CREATININE 2.01 mg/dL (0.55-1.30); POTASSIUM 4.2 mmol/L (3.5-5.1)
[2023-06-23] MEDS: hydrALAZINE HCL 25 MG TABLET PO SCH ×3 (06:33→22:06)
[2023-06-23 09:01] LABS: CALCIUM 9.1 mg/dL (8.4-11.0); CREATININE 2.03 mg/dL (0.55-1.30); POTASSIUM 3.6 mmol/L (3.5-5.1)
[2023-06-23] MEDS: PANTOPRAZOLE SODIUM 40 MG TAB PO SCH (10:27)
[2023-06-23 12:50] LABS: ALANINE AMINOTRANSFERASE 16 U/L (12-78); ALBUMIN 2.6 g/dL (3.4-4.8); ANION GAP 12 (5-15); ASPARTATE AMINOTRANSFERASE 15 U/L (10-37); CALCIUM 8.8 mg/dL (8.4-11.0); CARBON DIOXIDE 20 mmol/L (23-29); CHLORIDE 104 mmol/L (98-107); CREATININE 1.76 mg/dL (0.55-1.30); GLUCOSE 185 mg/dL (74-106); POTASSIUM 3.4 mmol/L (3.5-5.1); SODIUM SERUM 136 mmol/L (136-145); TOTAL BILIRUBIN 0.2 mg/dL (0.0-1.0); TOTAL PROTEIN, SERUM 5.5 g/dL (6.4-8.3); UREA NITROGEN, BLOOD 18 mg/dL (8-21)
[2023-06-23 12:51] LABS: GFR AFRICAN AMERICAN 37 mL/min (>90); GFR NON AFRICAN-AMERICAN 30 mL/min (>90)
[2023-06-23 13:06] LABS: ACETONE, SERUM NEGATIVE (NEGATIVE)
[2023-06-23] MEDS ORDERED: POTASSIUM CHLORIDE 20 MEQ TABLET.ER PO ONE (14:45)
[2023-06-23] MEDS ORDERED: INSULIN NPH 100 UNITS/ML 10 ML VIAL SUBCUT ONE (15:00)
[2023-06-23 17:46] LABS: CALCIUM 8.9 mg/dL (8.4-11.0); CREATININE 1.82 mg/dL (0.55-1.30); POTASSIUM 3.9 mmol/L (3.5-5.1)
[2023-06-23] MEDS ORDERED: INSULIN GLARGINE 100 UNITS/ML, 10 ML VIAL SUBCUT SCH (21:00)
[2023-06-23] MEDS: INSULIN GLARGINE 100 UNITS/ML, 10 ML VIAL SUBCUT SCH (22:06)
[2023-06-23] MEDS ORDERED: traZODone HCL 50 MG TABLET (DESYREL) ONE (22:20)
[2023-06-24] VITALS (15 sets, daily range): BP systolic 141–164; PULSE 87–97; RESP 16–20; TEMP 97.2–98.7; O2SAT 95–100
[2023-06-24 05:55] LABS: BASOPHILS % (AUTO) 0.3 % (0.0-2.0); HEMATOCRIT 25.2 % (36-48); HEMOGLOBIN 8.3 g/dL (12.0-16.0); LYMPHOCYTES # (AUTO) 1.8 K/uL (1.0-5.5); LYMPHOCYTES % (AUTO) 25.5 % (20.5-51.5); MEAN CORPUSCULAR HEMOGLOBIN 26 pg (27-31); MEAN CORPUSCULAR HGB CONC 33 % (32-36); MEAN CORPUSCULAR VOLUME 79 fL (79.0-98.0); MONOCYTES # (AUTO) 0.6 K/uL (0.0-1.0); MONOCYTES % (AUTO) 9.1 % (1.7-9.3); NEUTROPHILS # (AUTO) 4.5 K/uL (1.8-7.7); NEUTROPHILS % (AUTO) 65.1 % (40.0-70.0); PLATELET COUNT (AUTO) 216 K/uL (130-430); RED BLOOD CELL COUNT(AUTO) 3.18 MIL/uL (4.2-6.2); RED CELL DISTRIBUTION WIDTH 16.8 % (9.0-15.0); WHITE BLOOD COUNT (AUTO) 6.9 K/uL (4.8-10.8)
[2023-06-24 06:40] LABS: CALCIUM 8.8 mg/dL (8.4-11.0); CREATININE 1.61 mg/dL (0.55-1.30); POTASSIUM 3.8 mmol/L (3.5-5.1)
[2023-06-24 06:46] LABS: TOTAL IRON BIND. CAPACITY 217 ug/dL (250-450)
[2023-06-24] MEDS: hydrALAZINE HCL 25 MG TABLET PO SCH ×3 (06:58→22:05)
[2023-06-24] MEDS: INSULIN GLARGINE 100 UNITS/ML, 10 ML VIAL SUBCUT SCH (08:28)
[2023-06-24] MEDS: INSULIN LISPRO SLIDING SCALE 100 UNITS/ML, 3 ML VIAL (humaLOG) SUBCUT PRN ×3 (08:29→16:54)
[2023-06-24] MEDS: PANTOPRAZOLE SODIUM 40 MG TAB PO SCH (09:01)
[2023-06-24] MEDS: POTASSIUM CHLORIDE 20 MEQ TABLET.ER PO SCH (09:01)
[2023-06-24] MEDS: 0.45% NACL 1,000 ML IV SCH (09:03)
[2023-06-24] MEDS ORDERED: INSULIN GLARGINE 100 UNITS/ML, 10 ML VIAL SUBCUT ONE (12:00)
[2023-06-24] MEDS: INSULIN Lispro 100 UNITS/ML, 3 ML VIAL (humaLOG) SUBCUT SCH (16:53)
[2023-06-24] MEDS ORDERED: MILK OF MAGNESIA 30 ML UDC PO PRN (17:00)
[2023-06-24] MEDS ORDERED: DOCUSATE SODIUM 100 MG CAPSULE PO ONE (17:15)
[2023-06-24] MEDS: SOD FERRIC GLUC COMPLEX/SUC 125 MG in NS 100 ML IV SCH (18:13)
[2023-06-24] MEDS ORDERED: INSULIN GLARGINE 100 UNITS/ML, 10 ML VIAL SUBCUT SCH (21:00)
[2023-06-24] MEDS ORDERED: traZODone HCL 50 MG TABLET (DESYREL) PO SCH (21:00)
[2023-06-24] MEDS: DOCUSATE SODIUM 100 MG CAPSULE PO SCH ×2 (21:00→23:26)
[2023-06-24] MEDS: SENNOSIDES 8.6 MG TABLET PO SCH ×2 (21:00→23:26)
[2023-06-24] MEDS: CHOLECALCIFEROL (VITAMIN D3) 2,000 UNIT TABLET PO SCH (21:58)
[2023-06-24] MEDS: traZODone HCL 50 MG TABLET (DESYREL) PO SCH (21:59)
[2023-06-25 01:11] VITALS: BP_SYST 165; PULSE 94; RESP 19; TEMP 98.6
[2023-06-25] MEDS ORDERED: D5W 1,000 ML IV SCH (03:45)
[2023-06-25] MEDS: hydrALAZINE HCL 25 MG TABLET PO SCH ×3 (06:16→22:55)
[2023-06-25] MEDS ORDERED: GLUCOSE (DEXTROSE) ORAL GEL -Adults PO PRN (07:00)
[2023-06-25] MEDS: INSULIN Lispro 100 UNITS/ML, 3 ML VIAL (humaLOG) SUBCUT SCH ×3 (07:00→17:01)
[2023-06-25] MEDS ORDERED: D5W 1,000 ML IV PRN (07:00)
[2023-06-25] MEDS ORDERED: DEXTROSE 50% JECT 50 ML DISP.SYRIN IVP PRN (07:00)
[2023-06-25] MEDS: D5W 1,000 ML IV SCH ×2 (07:30→20:50)
[2023-06-25 08:00] VITALS: BP_SYST 136; PULSE 92; RESP 16; TEMP 96.5; O2SAT 98
[2023-06-25] MEDS: DOCUSATE SODIUM 100 MG CAPSULE PO SCH ×2 (08:49→21:27)
[2023-06-25] MEDS: POTASSIUM CHLORIDE 20 MEQ TABLET.ER PO SCH (08:50)
[2023-06-25] MEDS: PANTOPRAZOLE SODIUM 40 MG TAB PO SCH (08:51)
[2023-06-25] MEDS: CHOLECALCIFEROL (VITAMIN D3) 2,000 UNIT TABLET PO SCH ×2 (08:51→21:27)
[2023-06-25] MEDS: INSULIN GLARGINE 100 UNITS/ML, 10 ML VIAL SUBCUT SCH (09:00)
[2023-06-25] MEDS: VITAMIN B COMPLEX 1 CAP/TAB PO SCH (10:26)
[2023-06-25 11:30] VITALS: BP_SYST 131; PULSE 102; RESP 17; TEMP 98.6; O2SAT 98
[2023-06-25] MEDS: INSULIN LISPRO SLIDING SCALE 100 UNITS/ML, 3 ML VIAL (humaLOG) SUBCUT PRN (17:03)
[2023-06-25] MEDS: SOD FERRIC GLUC COMPLEX/SUC 125 MG in NS 100 ML IV SCH (17:05)
[2023-06-25 18:00] VITALS: BP_SYST 140; PULSE 95; RESP 16; TEMP 98.4; O2SAT 98
[2023-06-25 20:05] VITALS: BP_SYST 141; PULSE 99; RESP 20; TEMP 99.1; O2SAT 99
[2023-06-25] MEDS: traZODone HCL 50 MG TABLET (DESYREL) PO SCH (21:27)
[2023-06-25] MEDS: SENNOSIDES 8.6 MG TABLET PO SCH (21:27)
[2023-06-26] VITALS (7 sets, daily range): BP systolic 120–156; PULSE 68–98; RESP 16–20; TEMP 98–99.1; O2SAT 97–99
[2023-06-26] MEDS: hydrALAZINE HCL 25 MG TABLET PO SCH ×3 (06:43→21:51)
[2023-06-26] MEDS: INSULIN Lispro 100 UNITS/ML, 3 ML VIAL (humaLOG) SUBCUT SCH ×3 (06:51→18:25)
[2023-06-26] MEDS: INSULIN LISPRO SLIDING SCALE 100 UNITS/ML, 3 ML VIAL (humaLOG) SUBCUT PRN ×2 (06:59→12:27)
[2023-06-26] MEDS: DOCUSATE SODIUM 100 MG CAPSULE PO SCH ×2 (08:37→21:48)
[2023-06-26] MEDS: CHOLECALCIFEROL (VITAMIN D3) 2,000 UNIT TABLET PO SCH ×2 (08:37→21:49)
[2023-06-26] MEDS: POTASSIUM CHLORIDE 20 MEQ TABLET.ER PO SCH (08:38)
[2023-06-26] MEDS: PANTOPRAZOLE SODIUM 40 MG TAB PO SCH (08:38)
[2023-06-26] MEDS: VITAMIN B COMPLEX 1 CAP/TAB PO SCH (08:44)
[2023-06-26] MEDS: INSULIN GLARGINE 100 UNITS/ML, 10 ML VIAL SUBCUT SCH (08:51)
[2023-06-26] MEDS: SOD FERRIC GLUC COMPLEX/SUC 125 MG in NS 100 ML IV SCH (17:36)
[2023-06-26] MEDS: SENNOSIDES 8.6 MG TABLET PO SCH (21:49)
[2023-06-26] MEDS: traZODone HCL 50 MG TABLET (DESYREL) PO SCH (21:49)
[2023-06-27] VITALS: BP_SYST 136; PULSE 72; RESP 16; TEMP 98.1; O2SAT 98
[2023-06-27 06:00] VITALS: BP_SYST 125; PULSE 89; RESP 16; TEMP 98.6; O2SAT 98
[2023-06-27 06:28] LABS: ALBUMIN 2.4 g/dL (3.4-4.8); CREATININE 1.52 mg/dL (0.55-1.30); POTASSIUM 4.5 mmol/L (3.5-5.1); TOTAL BILIRUBIN 0.3 mg/dL (0.0-1.0); TOTAL PROTEIN, SERUM 5.4 g/dL (6.4-8.3)
[2023-06-27] MEDS: hydrALAZINE HCL 25 MG TABLET PO SCH ×3 (06:40→22:27)
[2023-06-27] MEDS: INSULIN LISPRO SLIDING SCALE 100 UNITS/ML, 3 ML VIAL (humaLOG) SUBCUT PRN ×2 (06:45→22:40)
[2023-06-27] MEDS: INSULIN Lispro 100 UNITS/ML, 3 ML VIAL (humaLOG) SUBCUT SCH ×3 (06:46→17:00)
[2023-06-27 08:00] VITALS: O2SAT 98
[2023-06-27] MEDS: DOCUSATE SODIUM 100 MG CAPSULE PO SCH ×2 (08:45→22:27)
[2023-06-27] MEDS: VITAMIN B COMPLEX 1 CAP/TAB PO SCH (08:45)
[2023-06-27] MEDS: PANTOPRAZOLE SODIUM 40 MG TAB PO SCH (08:45)
[2023-06-27] MEDS: CHOLECALCIFEROL (VITAMIN D3) 2,000 UNIT TABLET PO SCH ×2 (08:45→22:26)
[2023-06-27] MEDS: POTASSIUM CHLORIDE 20 MEQ TABLET.ER PO SCH (08:45)
[2023-06-27] MEDS: INSULIN GLARGINE 100 UNITS/ML, 10 ML VIAL SUBCUT SCH (08:54)
[2023-06-27 11:45] VITALS: BP_SYST 139; PULSE 91; RESP 15; TEMP 98.8; O2SAT 97
[2023-06-27 17:24] VITALS: BP_SYST 137; PULSE 89; RESP 16; TEMP 98.6; O2SAT 100
[2023-06-27] MEDS: SOD FERRIC GLUC COMPLEX/SUC 125 MG in NS 100 ML IV SCH (17:43)
[2023-06-27 20:00] VITALS: BP_SYST 144; PULSE 92; RESP 16; TEMP 98; O2SAT 98
[2023-06-27] MEDS: traZODone HCL 50 MG TABLET (DESYREL) PO SCH (22:26)
[2023-06-27] MEDS: SENNOSIDES 8.6 MG TABLET PO SCH (22:27)
[2023-06-28 03:37] VITALS: O2SAT 98
[2023-06-28] MEDS: hydrALAZINE HCL 25 MG TABLET PO SCH ×3 (06:13→21:15)
[2023-06-28] MEDS: INSULIN LISPRO SLIDING SCALE 100 UNITS/ML, 3 ML VIAL (humaLOG) SUBCUT PRN ×2 (06:19→21:20)
[2023-06-28 08:00] VITALS: BP_SYST 139; PULSE 98; RESP 16; TEMP 98.1; O2SAT 98
[2023-06-28] MEDS: PANTOPRAZOLE SODIUM 40 MG TAB PO SCH (09:04)
[2023-06-28] MEDS: VITAMIN B COMPLEX 1 CAP/TAB PO SCH (09:04)
[2023-06-28] MEDS: DOCUSATE SODIUM 100 MG CAPSULE PO SCH ×2 (09:04→21:15)
[2023-06-28] MEDS: CHOLECALCIFEROL (VITAMIN D3) 2,000 UNIT TABLET PO SCH ×2 (09:04→21:14)
[2023-06-28] MEDS: POTASSIUM CHLORIDE 20 MEQ TABLET.ER PO SCH (09:04)
[2023-06-28] MEDS: INSULIN GLARGINE 100 UNITS/ML, 10 ML VIAL SUBCUT SCH (09:11)
[2023-06-28 12:01] VITALS: BP_SYST 127; PULSE 79; RESP 17; TEMP 98.2; O2SAT 98
[2023-06-28] MEDS: SOD FERRIC GLUC COMPLEX/SUC 125 MG in NS 100 ML IV SCH (18:01)
[2023-06-28 19:45] VITALS: O2SAT 100
[2023-06-28 20:00] VITALS: BP_SYST 135; PULSE 86; RESP 16; TEMP 98.8; O2SAT 100
[2023-06-28] MEDS: traZODone HCL 50 MG TABLET (DESYREL) PO SCH (21:14)
[2023-06-28] MEDS: SENNOSIDES 8.6 MG TABLET PO SCH (21:14)
[2023-06-29 00:40] VITALS: BP_SYST 139; PULSE 95; RESP 18; TEMP 97.2; O2SAT 95
[2023-06-29] MEDS: hydrALAZINE HCL 25 MG TABLET PO SCH ×2 (06:41→15:30)
[2023-06-29 07:11] LABS: CALCIUM 9.1 mg/dL (8.4-11.0); CREATININE 1.67 mg/dL (0.55-1.30); POTASSIUM 4.2 mmol/L (3.5-5.1)
[2023-06-29 07:15] LABS: BASOPHILS % (AUTO) 0.3 % (0.0-2.0); HEMATOCRIT 25.2 % (36-48); HEMOGLOBIN 8.2 g/dL (12.0-16.0); LYMPHOCYTES # (AUTO) 1.4 K/uL (1.0-5.5); LYMPHOCYTES % (AUTO) 18.7 % (20.5-51.5); MEAN CORPUSCULAR HEMOGLOBIN 26 pg (27-31); MEAN CORPUSCULAR HGB CONC 33 % (32-36); MEAN CORPUSCULAR VOLUME 80 fL (79.0-98.0); MONOCYTES # (AUTO) 0.9 K/uL (0.0-1.0); MONOCYTES % (AUTO) 11.7 % (1.7-9.3); NEUTROPHILS # (AUTO) 5.4 K/uL (1.8-7.7); NEUTROPHILS % (AUTO) 69.3 % (40.0-70.0); PLATELET COUNT (AUTO) 270 K/uL (130-430); RED BLOOD CELL COUNT(AUTO) 3.16 MIL/uL (4.2-6.2); RED CELL DISTRIBUTION WIDTH 16.9 % (9.0-15.0); WHITE BLOOD COUNT (AUTO) 7.7 K/uL (4.8-10.8)
[2023-06-29] MEDS ORDERED: INSULIN LISPRO SLIDING SCALE 100 UNITS/ML, 3 ML VIAL (humaLOG) SUBCUT PRN ×2 (07:45)
[2023-06-29 08:21] VITALS: BP_SYST 131; PULSE 99; RESP 16; TEMP 97.2; O2SAT 97
[2023-06-29] MEDS: CHOLECALCIFEROL (VITAMIN D3) 2,000 UNIT TABLET PO SCH (10:22)
[2023-06-29] MEDS: DOCUSATE SODIUM 100 MG CAPSULE PO SCH (10:22)
[2023-06-29] MEDS: VITAMIN B COMPLEX 1 CAP/TAB PO SCH (10:22)
[2023-06-29] MEDS: POTASSIUM CHLORIDE 20 MEQ TABLET.ER PO SCH (10:23)
[2023-06-29] MEDS: PANTOPRAZOLE SODIUM 40 MG TAB PO SCH (10:23)
[2023-06-29] MEDS: INSULIN GLARGINE 100 UNITS/ML, 10 ML VIAL SUBCUT SCH (10:44)
[2023-06-29 11:09] VITALS: BP_SYST 124; PULSE 93; RESP 17; TEMP 96.6; O2SAT 96
[2023-06-29] MEDS: SOD FERRIC GLUC COMPLEX/SUC 125 MG in NS 100 ML IV SCH (15:23)
[2023-06-29 15:27] VITALS: BP_SYST 113; PULSE 63; RESP 16; TEMP 97.7; O2SAT 100
[2023-06-29 16:55] VITALS: BP_SYST 113; PULSE 63; RESP 16; TEMP 97.7; O2SAT 100
[2023-06-29 17:44] VITALS: O2SAT 100
== END 2023-06-29 18:30 | disposition home or self-care (01) | DRG 682 ==
LOC: SED 14:51 → SIC 17:24 → STU 06-24 11:10 → SMU 06-26 09:32
PROVIDERS: ADMIT Family Medicine; ATTEND Family Medicine
DX: N17.9 Acute kidney failure, unspecified (principal); E11.10 Type 2 diabetes mellitus with ketoacidosis without coma; E87.1 Hypo-osmolality and hyponatremia; E11.649 Type 2 diabetes mellitus with hypoglycemia without coma; I12.9 Hypertensive chronic kidney disease with stage 1 through stage 4 chronic kidney disease, or unspecified chronic kidney disease; E11.22 Type 2 diabetes mellitus with diabetic chronic kidney disease; G47.00 Insomnia, unspecified; N18.9 Chronic kidney disease, unspecified; D50.9 Iron deficiency anemia, unspecified; E86.0 Dehydration; E55.9 Vitamin D deficiency, unspecified; J44.9 Chronic obstructive pulmonary disease, unspecified; Z91.014 Allergy to mammalian meats; Z88.0 Allergy status to penicillin; Z79.4 Long term (current) use of insulin; Z88.8 Allergy status to other drugs, medicaments and biological substances; Z91.040 Latex allergy status; Z91.013 Allergy to seafood; Z79.899 Other long term (current) drug therapy
CPT/HCPCS: 36415; 36600; 71045; 76770; 80048; 80053; 80076; 81000; 81001; 81015; 82009; 82306; 82607; 82728; 82746; 82803; 82962; 83037; 83540; 83550; 83735; 84100; 84484; 85025; 87081; 93005; 97116-GP; 97530-GP; 99291; G0378; J1815; J2916

== ENCOUNTER 2023-11-11 13:51 | Inpatient (IN) | payer OTHER ==
[~2023-11-11] VITALS: Ht 165.1 cm; Wt 65.3 kg
[~2023-11-11 13:51] MED LIST changes: -HYDR-4039 PO; +HYDR50TA45 PO; -INSU100V9 SQ
[2023-11-11 14:04] VITALS: BP_SYST 95; PULSE 108; RESP 17; TEMP 97.5; O2SAT 99
[2023-11-11 15:06] LABS: BASOPHILS % (AUTO) 0.1 % (0.0-2.0); HEMATOCRIT 31.3 % (36-48); HEMOGLOBIN 9.5 g/dL (12.0-16.0); LYMPHOCYTES # (AUTO) 0.8 K/uL (1.0-5.5); LYMPHOCYTES % (AUTO) 8.9 % (20.5-51.5); MEAN CORPUSCULAR HEMOGLOBIN 27 pg (27-31); MEAN CORPUSCULAR HGB CONC 31 % (32-36); MEAN CORPUSCULAR VOLUME 88 fL (79.0-98.0); MONOCYTES # (AUTO) 0.3 K/uL (0.0-1.0); MONOCYTES % (AUTO) 3.2 % (1.7-9.3); NEUTROPHILS # (AUTO) 8.3 K/uL (1.8-7.7); NEUTROPHILS % (AUTO) 87.8 % (40.0-70.0); PLATELET COUNT (AUTO) 278 K/uL (130-430); RED BLOOD CELL COUNT(AUTO) 3.55 MIL/uL (4.2-6.2); RED CELL DISTRIBUTION WIDTH 16.1 % (9.0-15.0); WHITE BLOOD COUNT (AUTO) 9.5 K/uL (4.8-10.8)
[2023-11-11 15:14] LABS: ACETONE, SERUM NEGATIVE (NEGATIVE)
[2023-11-11 15:28] LABS: ANION GAP 27 (5-15); CALCIUM 9.3 mg/dL (8.4-11.0); CARBON DIOXIDE 12 mmol/L (23-29); CHLORIDE 95 mmol/L (98-107); CREATININE 3.19 mg/dL (0.55-1.30); POTASSIUM 4.4 mmol/L (3.5-5.1); SODIUM SERUM 134 mmol/L (136-145); UREA NITROGEN, BLOOD 48 mg/dL (8-21)
[2023-11-11] MEDS: INSULIN REGULAR, HUMAN 10 UNITS/0.1 ML, 3 ML VIAL IVP ONE ×2 (15:31→19:30)
[2023-11-11 15:43] LABS: GFR AFRICAN AMERICAN 18 mL/min (>90)
[2023-11-11 15:52] LABS: GLUCOSE 796 mg/dL (74-106)
[2023-11-11] MEDS ORDERED: ACETAMINOPHEN 325 MG TABLET PO PRN ×2 (17:30→17:45)
[2023-11-11] MEDS ORDERED: D5W 1,000 ML IV PRN (17:30)
[2023-11-11] MEDS ORDERED: HYDROcodone/ACETAMIN 5-325 MG TAB (NORCO/ VICODIN) PO PRN (17:30)
[2023-11-11] MEDS ORDERED: DEXTROSE 50% JECT 50 ML DISP.SYRIN IVP PRN ×2 (17:30→20:00)
[2023-11-11] MEDS ORDERED: MORPHINE 2 MG/ML INJ. SYRINGE IVP PRN (17:30)
[2023-11-11] MEDS: NS 500 ML IV ONE (17:53)
[2023-11-11] MEDS: NACL 0.9% 1,000 ML IV ONE ×2 (17:54→19:33)
[2023-11-11] MEDS: NACL 0.9% 1,000 ML IV SCH (17:55)
[2023-11-11] MEDS: ONDANSETRON HCL 4 MG/2 ML VIAL IVP PRN (18:38)
[2023-11-11 18:55] LABS: CALCIUM 8.5 mg/dL (8.4-11.0); CREATININE 3.34 mg/dL (0.55-1.30); POTASSIUM 5.1 mmol/L (3.5-5.1)
[2023-11-11] MEDS ORDERED: INSULIN REGULAR, HUMAN 10 UNITS/0.1 ML, 3 ML VIAL ONE (19:28)
[2023-11-11] MEDS: NS 500 ML IV SCH (20:00)
[2023-11-11 20:15] LABS: ABG O2 SAT% ESTIMATE 96.5 % (94.0-100.0); ALLEN'S TEST POSITIVE (P); BLOOD GAS HCO3 7.5 mmol/L (21.0-27.0); BLOOD GAS PCO2 21.1 mmHg (35.0-45.0); BLOOD GAS PH 7.168 (7.350-7.450); BLOOD GAS PO2 104.2 mmHg (75.0-100.0)
[2023-11-11 20:28] VITALS: BP_SYST 133; PULSE 115; RESP 17; TEMP 98.7; O2SAT 95
[2023-11-11 21:00] VITALS: PULSE 114; RESP 17; O2SAT 97
[2023-11-11] MEDS: INSULIN REGULAR, HUMAN 100 UNITS in NS 99 ML IV PRN (21:14)
[2023-11-11] MEDS ORDERED: KCL 20 mEq in 100 mL (PREMIX) 100 ML IV ONE (21:45)
[2023-11-11 22:00] VITALS: BP_SYST 130; PULSE 107; RESP 16; O2SAT 100
[2023-11-11 23:00] VITALS: BP_SYST 130; PULSE 108; RESP 17; O2SAT 100
[2023-11-11 23:07] LABS: ALBUMIN 2.7 g/dL (3.4-4.8); BILIRUBIN,DIRECT 0.1 mg/dL (0.0-0.3); TOTAL BILIRUBIN 0.4 mg/dL (0.0-1.0); TOTAL PROTEIN, SERUM 6.2 g/dL (6.4-8.3)
[2023-11-11 23:09] LABS: BILIRUBIN,URINE NEGATIVE (NEGATIVE); CLARITY/URINE SL CLOUDY (CLEAR); COLOR,URINE YELLOW (YELLOW); GLUCOSE,URINE 3+ (NEGATIVE); KETONES,URINE 1+ (NEGATIVE); LEUKOCYTE ESTERASE ,URINE NEGATIVE (NEGATIVE); NITRITE, URINE NEGATIVE (NEGATIVE); PH,URINE 5.5 (5.0-8.0); PROTEIN URINE 3+ (NEGATIVE); UROBILINOGEN,URINE 0.2 (0.2-1.0)
[2023-11-11 23:16] LABS: BLOOD, URINE TRACE (NEGATIVE)
[2023-11-11 23:17] LABS: BACTERIA,URINE MODERATE /HPF (None Seen); RBC,URINE 0-3 /HPF (0-3); WBC,URINE 20-50 /HPF (0-3)
[2023-11-12] VITALS (24 sets, daily range): BP systolic 111–150; PULSE 87–109; RESP 13–24; TEMP 97.8–98.5; O2SAT 93–100
[2023-11-12 03:41] LABS: BASOPHILS % (AUTO) 0.1 % (0.0-2.0); HEMOGLOBIN 8.4 g/dL (12.0-16.0); LYMPHOCYTES # (AUTO) 1.3 K/uL (1.0-5.5); LYMPHOCYTES % (AUTO) 10.6 % (20.5-51.5); MEAN CORPUSCULAR HEMOGLOBIN 27 pg (27-31); MEAN CORPUSCULAR HGB CONC 32 % (32-36); MEAN CORPUSCULAR VOLUME 82 fL (79.0-98.0); MONOCYTES # (AUTO) 1.3 K/uL (0.0-1.0); MONOCYTES % (AUTO) 9.9 % (1.7-9.3); NEUTROPHILS # (AUTO) 10.1 K/uL (1.8-7.7); NEUTROPHILS % (AUTO) 79.4 % (40.0-70.0); PLATELET COUNT (AUTO) 268 K/uL (130-430); RED BLOOD CELL COUNT(AUTO) 3.15 MIL/uL (4.2-6.2); RED CELL DISTRIBUTION WIDTH 15.2 % (9.0-15.0); WHITE BLOOD COUNT (AUTO) 12.7 K/uL (4.8-10.8)
[2023-11-12 04:15] LABS: ALBUMIN 2.2 g/dL (3.4-4.8); CREATININE 3.45 mg/dL (0.55-1.30); POTASSIUM 3.8 mmol/L (3.5-5.1); TOTAL BILIRUBIN 0.3 mg/dL (0.0-1.0); TOTAL PROTEIN, SERUM 5.4 g/dL (6.4-8.3)
[2023-11-12] MEDS: KCL 20 mEq in 100 mL (PREMIX) 100 ML IV SCH (05:59)
[2023-11-12] MEDS: INSULIN LISPRO SLIDING SCALE 100 UNITS/ML, 3 ML VIAL (humaLOG) SUBCUT PRN (06:14)
[2023-11-12 07:51] LABS: CALCIUM 7.9 mg/dL (8.4-11.0); CREATININE 3.38 mg/dL (0.55-1.30); POTASSIUM 4.5 mmol/L (3.5-5.1)
[2023-11-12] MEDS: cefTRIAXone 1 GM in D5W 50 ML IV SCH (10:17)
[2023-11-12] MEDS: NS 500 ML IV ONE (11:09)
[2023-11-12] MEDS: HEPARIN SODIUM,PORCINE 5,000 UNITS/ML VIAL SUBCUT ONE (11:37)
[2023-11-12 16:51] LABS: BASOPHILS % (AUTO) 0.3 % (0.0-2.0); HEMATOCRIT 27.6 % (36-48); LYMPHOCYTES % (AUTO) 16.1 % (20.5-51.5); MEAN CORPUSCULAR HEMOGLOBIN 27 pg (27-31); MEAN CORPUSCULAR HGB CONC 33 % (32-36); MEAN CORPUSCULAR VOLUME 82 fL (79.0-98.0); MONOCYTES # (AUTO) 0.9 K/uL (0.0-1.0); MONOCYTES % (AUTO) 7.7 % (1.7-9.3); NEUTROPHILS # (AUTO) 9.2 K/uL (1.8-7.7); NEUTROPHILS % (AUTO) 75.9 % (40.0-70.0); PLATELET COUNT (AUTO) 249 K/uL (130-430); RED BLOOD CELL COUNT(AUTO) 3.35 MIL/uL (4.2-6.2); RED CELL DISTRIBUTION WIDTH 15.2 % (9.0-15.0); WHITE BLOOD COUNT (AUTO) 12.2 K/uL (4.8-10.8)
[2023-11-12 17:13] LABS: ALBUMIN 2.3 g/dL (3.4-4.8); CALCIUM 8.3 mg/dL (8.4-11.0); CREATININE 3.04 mg/dL (0.55-1.30); POTASSIUM 4.7 mmol/L (3.5-5.1); TOTAL BILIRUBIN 0.4 mg/dL (0.0-1.0); TOTAL PROTEIN, SERUM 5.7 g/dL (6.4-8.3)
[2023-11-12] MEDS ORDERED: INSULIN REGULAR, HUMAN 100 UNITS in NS 99 ML IV PRN (18:30)
[2023-11-12] MEDS ORDERED: NACL 0.9% 1,000 ML IV SCH (18:30)
[2023-11-12] MEDS ORDERED: DEXTROSE 50% JECT 50 ML DISP.SYRIN IVP PRN (18:30)
[2023-11-12 18:48] LABS: PHOSPHORUS 3.3 mg/dL (2.7-4.5)
[2023-11-12] MEDS ORDERED: HEPARIN SODIUM,PORCINE 5,000 UNITS/ML VIAL SUBCUT SCH (21:00)
[2023-11-12] MEDS: INSULIN GLARGINE 100 UNITS/ML, 10 ML VIAL SUBCUT SCH (21:05)
[2023-11-13] VITALS (22 sets, daily range): BP systolic 122–176; PULSE 85–110; RESP 11–24; TEMP 98.3–99.3; O2SAT 93–100
[2023-11-13 04:58] LABS: BASOPHILS # (AUTO) 0.1 K/uL (0.0-0.2); BASOPHILS % (AUTO) 0.5 % (0.0-2.0); HEMATOCRIT 25.3 % (36-48); HEMOGLOBIN 8.3 g/dL (12.0-16.0); LYMPHOCYTES # (AUTO) 2.7 K/uL (1.0-5.5); LYMPHOCYTES % (AUTO) 24.1 % (20.5-51.5); MEAN CORPUSCULAR HEMOGLOBIN 27 pg (27-31); MEAN CORPUSCULAR HGB CONC 33 % (32-36); MEAN CORPUSCULAR VOLUME 82 fL (79.0-98.0); MONOCYTES # (AUTO) 0.8 K/uL (0.0-1.0); MONOCYTES % (AUTO) 7.3 % (1.7-9.3); NEUTROPHILS # (AUTO) 7.5 K/uL (1.8-7.7); NEUTROPHILS % (AUTO) 68.1 % (40.0-70.0); PLATELET COUNT (AUTO) 245 K/uL (130-430); WHITE BLOOD COUNT (AUTO) 11.1 K/uL (4.8-10.8)
[2023-11-13 05:33] LABS: CALCIUM 8.5 mg/dL (8.4-11.0); CREATININE 2.56 mg/dL (0.55-1.30); POTASSIUM 3.9 mmol/L (3.5-5.1); TOTAL BILIRUBIN 0.3 mg/dL (0.0-1.0); TOTAL PROTEIN, SERUM 5.1 g/dL (6.4-8.3)
[2023-11-13] MEDS: GLUCOSE (DEXTROSE) ORAL GEL -Adults PO PRN (07:41)
[2023-11-13] MEDS: amLODIPine BESYLATE 10 MG TABLET PO SCH (09:11)
[2023-11-13] MEDS: NACL 0.9% 1,000 ML IV SCH (12:30)
[2023-11-13] MEDS: hydrALAZINE HCL 25 MG TABLET PO SCH (15:17)
[2023-11-14] VITALS (11 sets, daily range): BP systolic 133–166; PULSE 87–116; RESP 11–21; TEMP 98.2–98.6; O2SAT 96–100
[2023-11-14 06:05] LABS: BASOPHILS % (AUTO) 0.5 % (0.0-2.0); HEMATOCRIT 26.2 % (36-48); HEMOGLOBIN 8.6 g/dL (12.0-16.0); LYMPHOCYTES # (AUTO) 2.1 K/uL (1.0-5.5); LYMPHOCYTES % (AUTO) 29.6 % (20.5-51.5); MEAN CORPUSCULAR HEMOGLOBIN 27 pg (27-31); MEAN CORPUSCULAR HGB CONC 33 % (32-36); MEAN CORPUSCULAR VOLUME 82 fL (79.0-98.0); MONOCYTES # (AUTO) 0.7 K/uL (0.0-1.0); MONOCYTES % (AUTO) 10.1 % (1.7-9.3); NEUTROPHILS # (AUTO) 4.2 K/uL (1.8-7.7); NEUTROPHILS % (AUTO) 59.8 % (40.0-70.0); PLATELET COUNT (AUTO) 239 K/uL (130-430)
[2023-11-14 06:39] LABS: ALBUMIN 1.9 g/dL (3.4-4.8); CALCIUM 8.5 mg/dL (8.4-11.0); CREATININE 1.99 mg/dL (0.55-1.30); POTASSIUM 3.9 mmol/L (3.5-5.1); TOTAL BILIRUBIN 0.3 mg/dL (0.0-1.0); TOTAL PROTEIN, SERUM 5.1 g/dL (6.4-8.3)
[2023-11-14] MEDS: CARVEDILOL 6.25 MG TABLET (COREG) PO SCH (20:36)
[2023-11-15] VITALS: BP_SYST 152; PULSE 100; RESP 16; TEMP 98.9; O2SAT 98
[2023-11-15 07:50] VITALS: O2SAT 98
[2023-11-15 08:15] VITALS: BP_SYST 152; PULSE 91; RESP 13; TEMP 97.2; O2SAT 98
[2023-11-15 13:22] VITALS: BP_SYST 153; PULSE 95; RESP 15; TEMP 97.8; O2SAT 97
[2023-11-15 16:47] VITALS: BP_SYST 150; PULSE 92; RESP 16; TEMP 97.6; O2SAT 98
[2023-11-15 20:15] VITALS: BP_SYST 127; PULSE 107; RESP 20
[2023-11-16 04:54] LABS: BASOPHILS % (AUTO) 0.7 % (0.0-2.0); HEMATOCRIT 28.9 % (36-48); HEMOGLOBIN 9.7 g/dL (12.0-16.0); LYMPHOCYTES # (AUTO) 1.7 K/uL (1.0-5.5); LYMPHOCYTES % (AUTO) 29.9 % (20.5-51.5); MEAN CORPUSCULAR HEMOGLOBIN 27 pg (27-31); MEAN CORPUSCULAR HGB CONC 34 % (32-36); MEAN CORPUSCULAR VOLUME 81 fL (79.0-98.0); MONOCYTES # (AUTO) 0.7 K/uL (0.0-1.0); MONOCYTES % (AUTO) 11.3 % (1.7-9.3); NEUTROPHILS # (AUTO) 3.4 K/uL (1.8-7.7); NEUTROPHILS % (AUTO) 58.1 % (40.0-70.0); PLATELET COUNT (AUTO) 257 K/uL (130-430); RED BLOOD CELL COUNT(AUTO) 3.58 MIL/uL (4.2-6.2); RED CELL DISTRIBUTION WIDTH 14.9 % (9.0-15.0); WHITE BLOOD COUNT (AUTO) 5.8 K/uL (4.8-10.8)
[2023-11-16 05:23] LABS: ALBUMIN 1.8 g/dL (3.4-4.8); CALCIUM 8.5 mg/dL (8.4-11.0); CREATININE 1.59 mg/dL (0.55-1.30); POTASSIUM 3.9 mmol/L (3.5-5.1); TOTAL BILIRUBIN 0.2 mg/dL (0.0-1.0); TOTAL PROTEIN, SERUM 5.2 g/dL (6.4-8.3)
[2023-11-16 08:00] VITALS: BP_SYST 154; PULSE 106; RESP 12; TEMP 97.8; O2SAT 97
[2023-11-16 11:06] VITALS: BP_SYST 128; PULSE 99; RESP 15; TEMP 97.5; O2SAT 98
[2023-11-16 14:00] VITALS: BP_SYST 128; PULSE 99; RESP 15; TEMP 97.5; O2SAT 98
[2023-11-16 16:12] VITALS: BP_SYST 126; PULSE 99; RESP 15; TEMP 97.5; O2SAT 98
== END 2023-11-16 16:35 | disposition home or self-care (01) | DRG 637 ==
LOC: SED 13:51 → STU 17:41 → SIC 20:28 → STU 11-14 22:13
PROVIDERS: ADMIT Family Medicine; ATTEND Family Medicine
DX: E11.10 Type 2 diabetes mellitus with ketoacidosis without coma (principal); N17.0 Acute kidney failure with tubular necrosis; N39.0 Urinary tract infection, site not specified; I12.9 Hypertensive chronic kidney disease with stage 1 through stage 4 chronic kidney disease, or unspecified chronic kidney disease; E11.22 Type 2 diabetes mellitus with diabetic chronic kidney disease; Z20.822 Contact with and (suspected) exposure to COVID-19; N18.9 Chronic kidney disease, unspecified; I48.91 Unspecified atrial fibrillation; D64.9 Anemia, unspecified; Z88.1 Allergy status to other antibiotic agents; Z91.041 Radiographic dye allergy status; Z91.040 Latex allergy status; Z88.0 Allergy status to penicillin; Z91.014 Allergy to mammalian meats; Z91.013 Allergy to seafood; Z79.899 Other long term (current) drug therapy; Z79.01 Long term (current) use of anticoagulants; E86.0 Dehydration; Z79.4 Long term (current) use of insulin
CPT/HCPCS: 36415; 36600; 71045; 76770; 80048; 80053; 80076; 81000; 81001; 81015; 82009; 82800-TC; 82803; 82948; 83735; 83880; 84100; 84484; 85025; 87081; 87086; 87186; 93005; 97116-GP; 97163-GP; 97530-GP; 99285; G0378; J0696; J1644; J1815; J2405; J3480; J7060